=== PATIENT | male | born 1970 | race Two or more races ===

== ENCOUNTER 2020-11-03 13:31 | Outpatient (REF) | payer MEDICAID, SELFPAY | END 2020-11-03 13:32 | disposition home or self-care (01) | LOC: HO.LAB 13:31 | PROVIDERS: Visit Provider Internal Medicine | DX: Z20.822 Contact with and (suspected) exposure to COVID-19 (principal) | CPT/HCPCS: 36415; C9803; U0003; U0005 ==

== ENCOUNTER 2021-05-10 11:04 | Outpatient (REF) | payer MEDICAID, SELFPAY | END 2021-05-10 11:05 | disposition home or self-care (01) | LOC: HO.LAB 11:04 | PROVIDERS: PCP Nurse Practitioner Primary Care; Visit Provider Internal Medicine | DX: Z20.822 Contact with and (suspected) exposure to COVID-19 (principal) | CPT/HCPCS: C9803; U0003; U0005 ==

== ENCOUNTER 2022-06-22 14:44 | Outpatient (REF) | payer MEDICAID, SELFPAY ==
--- NOTE | ~2022-06-22 | US_ITS ---
EXAMINATION: US RETROPERITONEAL LIMITED (RENAL ONLY) CLINICAL INFORMATION: Left flank pain, history of nephrolithiasis. COMPARISON: Ultrasound abdomen complete 11/07/2017. MR lumbar spine without contrast 08/02/2018. TECHNIQUE: Real-time imaging of the kidneys. FINDINGS: RIGHT KIDNEY: 12.7 x 6.1 x 7.3 cm (SAG x AP x TRV). The kidney is normal in size, contour, and echogenicity. Renal cortical thickness is normal. No calculi or focal parenchymal lesions. No hydronephrosis. LEFT KIDNEY: 11.3 x 4.6 x 5.1 cm (SAG x AP x TRV). The kidney is normal in size and contour. There is cortical thinning, increased echogenicity. Renal pyramids appear prominent. There is mild left hydronephrosis. No calculi or focal parenchymal lesions. US/US renal BI IMPRESSION: Normal right kidney. Left renal cortical thinning and increased echogenicity. Mild left hydronephrosis. Appearance is similar to 2018 exam.
== END 2022-06-22 14:45 | disposition home or self-care (01) ==
LOC: HO.HMGCX 14:44
PROVIDERS: PCP Nurse Practitioner Primary Care; Visit Provider Nurse Practitioner Primary Care
DX: R10.9 Unspecified abdominal pain (principal)
CPT/HCPCS: 76775

== ENCOUNTER 2022-08-12 13:20 | Outpatient (REF) | payer MEDICAID, SELFPAY ==
--- NOTE | ~2022-08-12 | XR_ITS ---
EXAMINATION: XR KNEE, RIGHT CLINICAL INFORMATION: Knee pain. COMPARISON: Right tibia and fibula 05/24/2017. TECHNIQUE: Four views of the right knee. FINDINGS: Bones and soft tissues are normal. No fracture or joint effusion. Alignment is anatomic. Joint spaces are well maintained. No abnormal soft tissue calcification. XR/XR knee RT 4V IMPRESSION: Normal right knee.
--- NOTE | ~2022-08-12 | XR_ITS ---
EXAMINATION: XR CHEST CLINICAL INFORMATION: Cough. COMPARISON: 11/15/2017 TECHNIQUE: 2 views of the chest were obtained. FINDINGS: No significant abnormality is noted involving the heart, lungs, mediastinum, bony thorax or soft tissues. XR/XR chest 2V IMPRESSION: Unremarkable examination.
== END 2022-08-12 13:21 | disposition home or self-care (01) ==
LOC: HO.XRAY 13:20
PROVIDERS: PCP Nurse Practitioner Primary Care; Visit Provider Nurse Practitioner Primary Care
DX: R05.9 Cough, unspecified (principal); M25.561 Pain in right knee
CPT/HCPCS: 71046; 73564

== ENCOUNTER 2023-01-27 12:40 | Emergency (ER) | payer MEDICAID, SELFPAY ==
--- NOTE | ~2023-01-27 | XR_ITS ---
EXAMINATION: XR CHEST CLINICAL INFORMATION: Pain COMPARISON: X-ray 08/12/2022 TECHNIQUE: 2 views of the chest were obtained. FINDINGS: Rotated positioning. Cardiac and mediastinal silhouette is stable from previous. Mild central vascular prominence, unchanged. No evidence of pulmonary edema. No evidence of pleural effusion. No significant pneumothorax is seen. Mild thoracic spine degeneration. Surgical clip in the upper abdomen. XR/XR chest 2V IMPRESSION: No evidence of acute pulmonary process.
--- NOTE | ~2023-01-27 | US_ITS ---
EXAMINATION: US ABDOMEN LIMITED CLINICAL INFORMATION: Right upper quadrant pain.. COMPARISON: Ultrasound kidneys 06/22/2022. The ultrasound abdomen 11/07/2017 TECHNIQUE: Real-time imaging of the right upper quadrant abdominal viscera. FINDINGS: PANCREAS: The head and the body the pancreas is homogeneous in echotexture. The tail is obscured by overlying gas. LIVER: Normal. The liver is normal in size. The liver contour is normal. Parenchymal echogenicity is slightly increased. No focal hepatic lesion. There is no intrahepatic biliary duct dilatation seen. GALLBLADDER: Limited views available.. The gallbladder is physiologically distended without evidence of stones, sludge, polyps, wall thickening or pericholecystic fluid. COMMON BILE DUCT: Normal in caliber measuring 0.2 cm in diameter. RIGHT KIDNEY: Normal. No hydronephrosis. No renal calculi or focal parenchymal lesions. The kidney measures 12.6 cm in maximum dimension. FREE FLUID: None. US/US abdomen limited IMPRESSION: 1. Slightly echogenic liver without focal lesion. 2. Visualized pancreas, gallbladder, CBD and right kidney is unremarkable.
--- NOTE | ~2023-01-27 | CT_ITS ---
EXAMINATION: CT ABDOMEN AND PELVIS WITHOUT CONTRAST CLINICAL INFORMATION: Right flank pain COMPARISON: None available. TECHNIQUE: Multidetector volumetric imaging was performed from the superior aspect of the liver through the pubic symphysis. Sagittal and coronal reformatted images were obtained on the technologist's workstation. This CT examination was performed using dose optimization techniques as appropriate, variously including the following: *Automated exposure control *Adjustment of mA and/or kV according to patient size (this includes techniques or standardized protocols for targeted exams where dose is matched to indication/reason for exam; i.e. extremities or head) *Use of iterative reconstruction technique DLP: 732 mGy-cm FINDINGS: LUNG BASES: The visualized lung bases are unremarkable. LIVER, GALLBLADDER, AND BILIARY TREE: The liver is normal in size, shape, and attenuation. No focal hepatic lesion or biliary ductal dilatation is present. The gallbladder is unremarkable with no evidence of radiopaque gallstones, gallbladder wall thickening, or obvious pericholecystic inflammatory changes. PANCREAS: Unremarkable. SPLEEN: Unremarkable. ADRENAL GLANDS: Unremarkable. KIDNEYS AND URETERS: The kidneys are normal in shape and attenuation. No hydronephrosis, hydroureter, or calculi seen. No perinephric stranding. A punctate calcification near the renal pelvis is most likely vascular. The left kidney is relatively small. There is a small metallic clip adjacent to the left renal vein. This may be related to a metallic clip in the right lower quadrant. BLADDER: Unremarkable. GASTROINTESTINAL TRACT: The small and large bowel are unremarkable. The appendix has likely been removed. Small bowel loops abut the low anterior abdominal wall hernia mesh and may be adherent. ABDOMINAL WALL: No recurrent hernia or associated fluid collection. No obstruction. LYMPH NODES: Normal. VASCULAR: Diffuse vascular calcifications. PELVIC VISCERA: Prostate calcifications. OSSEOUS STRUCTURES: Unremarkable. CT/CT abdomen pelvis wo IV con IMPRESSION: 1. No focal inflammatory process or obstruction. 2. No hydronephrosis or nephrolithiasis. Fleischner guidelines were followed.
--- NOTE | 2023-01-27 12:44 | ECG_ITS ---
Test Reason : cp Blood Pressure : / mmHG Vent. Rate : 077 BPM Atrial Rate : 077 BPM P-R Int : 160 ms QRS Dur : 134 ms QT Int : 418 ms P-R-T Axes : 022 -68 112 degrees QTc Int : 473 ms Normal sinus rhythm Right bundle branch block Left anterior fascicular block Bifascicular block T wave abnormality, consider lateral ischemia Abnormal ECG When compared with ECG of 15-NOV-2017 15:41, (RBBB and left anterior fascicular block) is now Present Referred By: Lorena Martinez Electronically Signed By:Rey Pacheco
[2023-01-27 12:57] VITALS: BP 180/99; PULSE 78; RESP 20; TEMP 37; O2SAT 98; BMI 33.3
--- NOTE | 2023-01-27 12:57 | ED.GENADULT ---
HPI - General Adult General Chief complaint: General Medical <CANDELARIO Arredondo - Last Filed: 01/27/23 13:02> Stated complaint: Chest pain/ arm pain. abdominal region swollen <CANDELARIO Arredondo - Last Filed: 01/27/23 13:02> Time Seen by Provider: 01/27/23 16:44 <CANDELARIO Arredondo - Last Filed: 01/27/23 13:02> Source: patient, RN notes reviewed and old records reviewed <Brett Ruiz - Last Filed: 01/27/23 19:51> Mode of arrival: ambulatory <Brett Ruiz - Last Filed: 01/27/23 19:51> Limitations: no limitations <Brett Ruiz - Last Filed: 01/27/23 19:51> History of Present Illness HPI narrative: 52-year-old male past medical history significant for obesity, hypertension, hyperlipidemia presents for evaluation of multiple complaints. He reports left-sided chest pain that radiates to his left arm has been present for at least last week He complains of epigastric abdominal pain that radiates around to his right upper abdomen and right flank for the last month He denies any associated symptoms including nausea vomiting or diarrhea. He denies any shortness of breath The patient does endorse a dry cough but states ?I always have a cough because I smoke. ? He rates his pain as 10/10. The patient feels his abdomen is ?swollen. ? He has previous surgical history including appendectomy, hernia repair <Brett Ruiz - Last Filed: 01/27/23 19:51> Related Data Home medications: Previous Rx's Medication Instructions Recorded acetaminophen 500 mg tablet 500 mg PO Q6H PRN pain #20 tabs 01/27/23 <CANDELARIO Arredondo - Last Filed: 01/27/23 13:02> Allergies/adverse reactions: Allergies Allergy/AdvReac Type Severity Reaction Status Date / Time Penicillins [PENICILLINS] Allergy Unknown SWELLING Unverified 06/18/20 18:50 Penicillins Allergy Unknown Uncoded 06/27/19 00:00 <CANDELARIO Arredondo Last Filed: 01/27/23 13:02> Review of Systems Constitutional: Constitutional: Reports as per HPI, Denies chills, Denies fatigue, Denies fever(s) and Denies headache(s) <Brett Ruiz Last Filed: 01/27/23 19:51> ENT: Denies headache(s) <Brett Ruiz Last Filed: 01/27/23 19:51> Cardiovascular: Cardiovascular: Reports chest pain and Denies dyspnea <Brett Yeungy - Last Filed: 01/27/23 19:51> Respiratory: Respiratory: Denies cough and Denies dyspnea <Brett Yeungy - Last Filed: 01/27/23 19:51> Gastrointestinal: Gastrointestinal: Reports abdominal pain, Denies constipation, Denies nausea and Denies vomiting <Brett Yeung Last Filed: 01/27/23 19:51> Genitourinary: Genitourinary: Denies difficulty urinating and Denies dysuria <Brett Ruiz Last Filed: 01/27/23 19:51> Neurologic: Denies headache(s) and Denies focal weakness <Brett Ruiz Last Filed: 01/27/23 19:51> Endocrine: Endocrine: Denies fatigue <Brett Ruiz Last Filed: 01/27/23 19:51> PMFSH Social History Social History: Social History Advance Directives: No Advance Directives Information Provided: Yes <CANDELARIO Arredondo - Last Filed: 01/27/23 13:02> Physical Exam ED Vital Signs: Vital Signs - 24 hr 01/27/23 12:57 Temperature 98.6 F Pulse Rate 78 Respiratory Rate 20 Blood Pressure 180/99 H Pulse Oximetry 98 Oxygen Delivery Method Room Air BMI result Body Mass Index 33.3 <CANDELARIO Arredondo - Last Filed: 01/27/23 13:02> Vital Signs - 24 hr 01/27/23 12:57 Temperature 98.6 F Pulse Rate 78 Respiratory Rate 20 Blood Pressure 180/99 H Pulse Oximetry 98 Oxygen Delivery Method Room Air BMI result Body Mass Index 33.3 <Brett Ruiz Last Filed: 01/27/23 19:51> Const General: healthy appearing, comfortable, no acute distress, alert and awake <Brett Ruiz Last Filed: 01/27/23 19:51> Nutritional Appearance: well nourished < Last Filed: 01/27/23 19:51> Orientation/consciousness: patient oriented x3 < Last Filed: 01/27/23 19:51> HENMT Head: Yes normocephalic and Yes atraumatic < Last Filed: 01/27/23 19:51> Throat: Yes posterior oropharynx normal < Last Filed: 01/27/23 19:51> Eyes Eyelids: Yes eyelids normal < Last Filed: 01/27/23 19:51> Conjunctivae: conjunctivae normal < Last Filed: 01/27/23 19:51> Sclerae: sclerae normal < Last Filed: 01/27/23 19:51> Corneas: corneas normal < Last Filed: 01/27/23 19:51> Pupils: Equal, round and reactive pupils present < Last Filed: 01/27/23 19:51> EOM: EOMs intact bilaterally < Last Filed: 01/27/23 19:51> Neck Neck: Yes full ROM < Last Filed: 01/27/23 19:51> Chest Other: Patient does have left-sided chest tenderness on exam without crepitus < Last Filed: 01/27/23 19:51> Chest palpation & inspection: normal inspection of the chest < Last Filed: 01/27/23 19:51> Resp Effort & Inspection: normal respiratory effort, able to speak in complete sentences, no audible wheezes and not labored < Last Filed: 01/27/23 19:51> Auscultation: clear to auscultation bilaterally < Last Filed: 01/27/23 19:51> Cardio Rate: regular rate < Last Filed: 01/27/23 19:51> Rhythm: regular rhythm < Last Filed: 01/27/23 19:51> GI Other: Surgical scars in the right lower and lower mid abdomen. Soft, obese abdomen. Patient is tender to palpation in the epigastric area and right upper quadrant. <Brett Ruiz - Last Filed: 01/27/23 19:51> Palpation (GI): Soft to palpation, Tenderness to palpation present (GI) and Guarding due to palpation present (GI) in the RUQ <Brett ManjinderGabyChi - Last Filed: 01/27/23 19:51> Auscultation: normoactive bowel sounds <Brett [place]aby[place] - Last Filed: 01/27/23 19:51> Skin General skin exam: no rashes or lesions noted and elasticity normal <Brett OAlly - Last Filed: 01/27/23 19:51> Neuro General: patient oriented x3 <Brett Manjinder[place]aby[place] - Last Filed: 01/27/23 19:51> Cranial nerves: Yes CN's II-XII intact bilaterally, Yes Equal, round and reactive pupils present and Yes Bilaterally intact EOM present <Brett DunbarAlly - Last Filed: 01/27/23 19:51> Cognition (Neuro): normal cognition <Brett HernandezChi - Last Filed: 01/27/23 19:51> Extrem Other: Moving all extremities well without any obvious deformities <Brett ManjinderGabyChi - Last Filed: 01/27/23 19:51> Course Course Course Narrative: RME: 52yo M w/no sig PMHx c/o L chest x 1 mos and RUQ abdominal pain radiating to R flank/back x 2 weeks. Denies fever, N/V/D Abdomen soft with epigastric/RUQ tenderness. EKG, labs, UA, abdomen ultrasound ordered Full HPI, ROS and PE to be performed by primary ED provider. <CANDELARIO Arredondo - Last Filed: 01/27/23 13:02> Reevaluation(s) Reevaluation #1: Patient's CT abdomen, chest x-ray and repeat troponin all without acute findings. The patient's pain is better controlled now. He is stable for discharge at this time. His blood pressure improved without intervention. This was discussed with the patient he will follow-up with his primary doctor <Brett Rizzo Last Filed: 01/27/23 19:51> Time: 19:48 <Brett Ruiz - Last Filed: 01/27/23 19:51> Medications Administered Discontinued Medications Generic Name Dose Route Start Last Admin Trade Name Freq PRN Reason Stop Dose Admin Morphine Sulfate 4 mg 01/27/23 17:35 01/27/23 17:52 Morphine Sulfate 4 Mg/Ml Cartridge IM 01/27/23 17:36 4 mg ONCE ONE Administration Protocol <CANDELARIO Arredondo - Last Filed: 01/27/23 13:02> Medications Administered Discontinued Medications Generic Name Dose Route Start Last Admin Trade Name Freq PRN Reason Stop Dose Admin Morphine Sulfate 4 mg 01/27/23 17:35 01/27/23 17:52 Morphine Sulfate 4 Mg/Ml Cartridge IM 01/27/23 17:36 4 mg ONCE ONE Administration Protocol <Brett Ruiz - Last Filed: 01/27/23 19:51> Medical Decision Making Medical Decision Making [facility] Narrative: Patient is a somewhat poor historian he complains of chest pain has been going on for 1 week. Less likely to be ACS. Nose, to abdominal pain x1 month. Denies any GI or symptoms. His labs are significant for A CO2 of 31 which may related to sleep apnea, anion gap of 10, BUN of 21 but his creatinine was within normal limits at 1.21. Patient sugar is 250 but no evidence of DKA. Patient's EKG does show sinus rhythm with a rate of 77 beats per minute. There is a new right bundle branch block and left fascicular block when compared to EKG from November of 5 years ago. Unclear exactly when this interval change occurred. Will repeat the patient's troponin that was 16 on initial lab draw. Given the patient's significant tenderness no right upper quadrant despite his negative ultrasound for biliary disease with a CT scan the abdomen pelvis without contrast. <Brett Ruiz - Last Filed: 01/27/23 19:51> Differential Diagnosis Abdominal pain Flank pain Constipation Cholelithiasis Acute cholecystitis Chest pain ACS Obesity <Brett Ruiz - Last Filed: 01/27/23 19:51> Lab Data [facility] Lab Attestation statement: I reviewed the patient's lab results. <Brett Ruiz - Last Filed: 01/27/23 19:51> Result Diagrams: 01/27/23 13:13 01/27/23 13:13 <CANDELARIO Arredondo - Last Filed: 01/27/23 13:02> Labs: Lab Results 01/27/23 01/27/23 01/27/23 Range/Units 13:13 13:13 13:13 WBC 7.6 (4.8-10.8) X10*3/uL RBC 5.79 (4.60-5.80) X10*6/uL Hgb 17.2 (14.0-18.0) g/dl Hct 50.4 (42.0-52.0) % MCV 87.0 (80.0-98.0) fL MCH 29.7 (27.0-33.0) pg MCHC 34.1 (31.0-36.0) g/dl RDW 12.2 (11.0-16.0) % Plt Count 126 L (160-400) X10*3/uL MPV 11.6 (9.4-12.4) fL Immature Gran % (Auto) 0.3 (0.0-0.4) % Neut % (Auto) 63.7 (45-73) % Lymph % (Auto) 22.7 (20-40) % [place] % (Auto) 10.3 (2-11) % Eos % (Auto) 2.6 (0-4) % Baso % (Auto) 0.4 (0-2) % Lymph # (Auto) 1.7 (1.2-4.9) X10*3/uL [place] # (Auto) 0.8 (0.1-1.2) X10*3/uL Eos # (Auto) 0.2 (0.0-0.4) X10*3/uL Baso # (Auto) 0.0 (0.0-0.2) X10*3/uL Abs Immat Gran (auto) 0.02 (0.00-0.03) X10*3/uL Absolute Neuts (auto) 4.8 (2.0-8.3) x10*3/uL Absolute Nucleated RBC 0.000 (0.0-0.012) X10*3/uL Nucleated RBC % (auto) 0.0 (0.0-0.2) /100WBC Sodium 140 (135-145) mmol/L Potassium 3.9 (3.3-5.1) mmol/L Chloride 103 (96-108) mmol/L Carbon Dioxide 31 H (22-29) mmol/L Anion Gap 10 L (12-20) BUN 21 H (9-16) mg/dL Creatinine 1.21 (0.5-1.4) mg/dL Estim Creat Clear Calc 81.6 Estimated GFR > 60 Random Glucose 250 H (60-115) mg/dL Calcium 9.4 (8.4-10.2) mg/dL Magnesium 1.7 (1.6-2.6) mg/dL Total Bilirubin 1.0 (0.0-1.0) mg/dL Direct Bilirubin 0.3 (0.0-0.5) mg/dL AST 11 (5-37) U/L ALT 12 (0-40) U/L Alkaline Phosphatase 115 (39-117) U/L Troponin I High Sens 16.8 (<3.5-35.0) ng/L Total Protein 6.5 (6.5-8.0) g/dL Albumin 4.0 (3.5-5.0) g/dL Lipase 39 (8-78) U/L // Range/Units 18:07 WBC (4.8-10.8) X10*3/uL RBC (4.60-5.80) X10*6/uL Hgb (14.0-18.0) g/dl Hct (42.0-52.0) % MCV (80.0-98.0) fL MCH (27.0-33.0) pg MCHC (31.0-36.0) g/dl RDW (11.0-16.0) % Plt Count (160-400) X10*3/uL MPV (9.4-12.4) fL Immature Gran % (Auto) (0.0-0.4) % Neut % (Auto) (45-73) % Lymph % (Auto) (20-40) % [place] % (Auto) (2-11) % Eos % (Auto) (0-4) % Baso % (Auto) (0-2) % Lymph # (Auto) (1.2-4.9) X10*3/uL [place] # (Auto) (0.1-1.2) X10*3/uL Eos # (Auto) (0.0-0.4) X10*3/uL Baso # (Auto) (0.0-0.2) X10*3/uL Abs Immat Gran (auto) (0.00-0.03) X10*3/uL Absolute Neuts (auto) (2.0-8.3) x10*3/uL Absolute Nucleated RBC (0.0-0.012) X10*3/uL Nucleated RBC % (auto) (0.0-0.2) /100WBC Sodium (135-145) mmol/L Potassium (3.3-5.1) mmol/L Chloride (96-108) mmol/L Carbon Dioxide (22-29) mmol/L Anion Gap (12-20) BUN (9-16) mg/dL Creatinine (0.5-1.4) mg/dL Estim Creat Clear Calc Estimated GFR Random Glucose (60-115) mg/dL Calcium (8.4-10.2) mg/dL Magnesium (1.6-2.6) mg/dL Total Bilirubin (0.0-1.0) mg/dL Direct Bilirubin (0.0-0.5) mg/dL AST (5-37) U/L ALT (0-40) U/L Alkaline Phosphatase (39-117) U/L Troponin I High Sens 21.2 (<3.5-35.0) ng/L Total Protein (6.5-8.0) g/dL Albumin (3.5-5.0) g/dL Lipase (8-78) U/L <CANDELARIO Arredondo - Last Filed: 01/27/23 13:02> Lab Results 01/27/23 01/27/23 01/27/23 Range/Units 13:13 13:13 13:13 WBC 7.6 (4.8-10.8) X10*3/uL RBC 5.79 (4.60-5.80) X10*6/uL Hgb 17.2 (14.0-18.0) g/dl Hct 50.4 (42.0-52.0) % MCV 87.0 (80.0-98.0) fL MCH 29.7 (27.0-33.0) pg MCHC 34.1 (31.0-36.0) g/dl RDW 12.2 (11.0-16.0) % Plt Count 126 L (160-400) X10*3/uL MPV 11.6 (9.4-12.4) fL Immature Gran % (Auto) 0.3 (0.0-0.4) % Neut % (Auto) 63.7 (45-73) % Lymph % (Auto) 22.7 (20-40) % [place] % (Auto) 10.3 (2-11) % Eos % (Auto) 2.6 (0-4) % Baso % (Auto) 0.4 (0-2) % Lymph # (Auto) 1.7 (1.2-4.9) X10*3/uL [place] # (Auto) 0.8 (0.1-1.2) X10*3/uL Eos # (Auto) 0.2 (0.0-0.4) X10*3/uL Baso # (Auto) 0.0 (0.0-0.2) X10*3/uL Abs Immat Gran (auto) 0.02 (0.00-0.03) X10*3/uL Absolute Neuts (auto) 4.8 (2.0-8.3) x10*3/uL Absolute Nucleated RBC 0.000 (0.0-0.012) X10*3/uL Nucleated RBC % (auto) 0.0 (0.0-0.2) /100WBC Sodium 140 (135-145) mmol/L Potassium 3.9 (3.3-5.1) mmol/L Chloride 103 (96-108) mmol/L Carbon Dioxide 31 H (22-29) mmol/L Anion Gap 10 L (12-20) BUN 21 H (9-16) mg/dL Creatinine 1.21 (0.5-1.4) mg/dL Estim Creat Clear Calc 81.6 Estimated GFR > 60 Random Glucose 250 H (60-115) mg/dL Calcium 9.4 (8.4-10.2) mg/dL Magnesium 1.7 (1.6-2.6) mg/dL Total Bilirubin 1.0 (0.0-1.0) mg/dL Direct Bilirubin 0.3 (0.0-0.5) mg/dL AST 11 (5-37) U/L ALT 12 (0-40) U/L Alkaline Phosphatase 115 (39-117) U/L Troponin I High Sens 16.8 (<3.5-35.0) ng/L Total Protein 6.5 (6.5-8.0) g/dL Albumin 4.0 (3.5-5.0) g/dL Lipase 39 (8-78) U/L 01/27/23 Range/Units 18:07 WBC (4.8-10.8) X10*3/uL RBC (4.60-5.80) X10*6/uL Hgb (14.0-18.0) g/dl Hct (42.0-52.0) % MCV (80.0-98.0) fL MCH (27.0-33.0) pg MCHC (31.0-36.0) g/dl RDW (11.0-16.0) % Plt Count (160-400) X10*3/uL MPV (9.4-12.4) fL Immature Gran % (Auto) (0.0-0.4) % Neut % (Auto) (45-73) % Lymph % (Auto) (20-40) % [place] % (Auto) (2-11) % Eos % (Auto) (0-4) % Baso % (Auto) (0-2) % Lymph # (Auto) (1.2-4.9) X10*3/uL [place] # (Auto) (0.1-1.2) X10*3/uL Eos # (Auto) (0.0-0.4) X10*3/uL Baso # (Auto) (0.0-0.2) X10*3/uL Abs Immat Gran (auto) (0.00-0.03) X10*3/uL Absolute Neuts (auto) (2.0-8.3) x10*3/uL Absolute Nucleated RBC (0.0-0.012) X10*3/uL Nucleated RBC % (auto) (0.0-0.2) /100WBC Sodium (135-145) mmol/L Potassium (3.3-5.1) mmol/L Chloride (96-108) mmol/L Carbon Dioxide (22-29) mmol/L Anion Gap (12-20) BUN (9-16) mg/dL Creatinine (0.5-1.4) mg/dL Estim Creat Clear Calc Estimated GFR Random Glucose (60-115) mg/dL Calcium (8.4-10.2) mg/dL Magnesium (1.6-2.6) mg/dL Total Bilirubin (0.0-1.0) mg/dL Direct Bilirubin (0.0-0.5) mg/dL AST (5-37) U/L ALT (0-40) U/L Alkaline Phosphatase (39-117) U/L Troponin I High Sens 21.2 (<3.5-35.0) ng/L Total Protein (6.5-8.0) g/dL Albumin (3.5-5.0) g/dL Lipase (8-78) U/L <Brett Ruiz - Last Filed: 01/27/23 19:51> Discharge Plan Discharge Clinical Impression: Chest pain <CANDELARIO Arredondo - Last Filed: 01/27/23 13:02> Patient Disposition: Home, Self-Care <CANDELARIO Arredondo - Last Filed: 01/27/23 13:02> Instructions: Chest Pain (ED) <CANDELARIO Arredondo - Last Filed: 01/27/23 13:02> Additional Instructions: All your test in the ER today were reassuring. This includes your blood work, chest x-ray, EKG, CT scan of the abdomen pelvis as well as the ultrasound of your gallbladder. Your pain is most likely musculoskeletal in origin Your blood pressure was elevated today but improved without any intervention Follow this up with your primary doctor <CANDELARIO Arredondo - Last Filed: 01/27/23 13:02> Prescriptions: New acetaminophen 500 mg tablet 500 mg PO Q6H PRN (Reason: pain) Qty: 20 0RF <CANDELARIO Arredondo - Last Filed: 01/27/23 13:02>
[2023-01-27 13:16] LABS: MANUAL DIFF FLAG NO
[2023-01-27 13:22] LABS: Basophils Percent Auto 0.4 % (0-2); Eosinophils Absolute Auto 0.2 X10*3/uL (0.0-0.4); Eosinophils Percent Auto 2.6 % (0-4); Hematocrit 50.4 % (42.0-52.0); Hemoglobin 17.2 g/dl (14.0-18.0); Imm Gran Abs Auto 0.02 X10*3/uL (0.00-0.03); Imm Gran Pct Auto 0.3 % (0.0-0.4); Lymphocytes Absolute Auto 1.7 X10*3/uL (1.2-4.9); Lymphocytes Percent Auto 22.7 % (20-40); Mean Corpuscular HGB Conc 34.1 g/dl (31.0-36.0); Mean Corpuscular Hemoglobin 29.7 pg (27.0-33.0); Mean Platelet Volume 11.6 fL (9.4-12.4); Monocytes Absolute Auto 0.8 X10*3/uL (0.1-1.2); Monocytes Percent Auto 10.3 % (2-11); Neutrophils Absolute Auto 4.8 x10*3/uL (2.0-8.3); Neutrophils Percent Auto 63.7 % (45-73); Platelet Count 126 X10*3/uL (160-400); Red Blood Count 5.79 X10*6/uL (4.60-5.80); Red Cell Distribution Width 12.2 % (11.0-16.0); White Blood Count 7.6 X10*3/uL (4.8-10.8)
[2023-01-27 13:37] LABS: Alanine Aminotransferase 12 U/L (0-40); Alkaline Phosphatase 115 U/L (39-117); Anion Gap 10 (12-20); Aspartate Amino Transferase 11 U/L (5-37); Bilirubin Direct 0.3 mg/dL (0.0-0.5); Blood Urea Nitrogen 21 mg/dL (9-16); Calcium 9.4 mg/dL (8.4-10.2); Carbon Dioxide 31 mmol/L (22-29); Chloride 103 mmol/L (96-108); Creatinine Clr Calc Pharmacy 81.6; Estimated Glomerular Filt Rate > 60; Glucose Random 250 mg/dL (60-115); Lipase 39 U/L (8-78); Magnesium 1.7 mg/dL (1.6-2.6); Potassium 3.9 mmol/L (3.3-5.1); Sodium 140 mmol/L (135-145); Total Protein 6.5 g/dL (6.5-8.0)
[2023-01-27 13:44] LABS: Troponin-I High Sensitivity 16.8 ng/L (<3.5-35.0)
[2023-01-27] MEDS: Morphine Sulfate 4 MG/ML CARTRIDGE IM (17:52)
[2023-01-27 18:44] LABS: Troponin-I High Sensitivity 21.2 ng/L (<3.5-35.0)
--- NOTE | 2023-01-27 19:30 | PC.NURSE ---
report received from jj Rodriguez Pt resting comfortably on stretcher at this time, denies pain, offers no complaints at this time. Pt verbalizes to this RN that he understands he is going to [facility] at some point and is agreeable with this plan.
[2023-01-27 19:48] VITALS: BP 143/81; PULSE 67; RESP 16; TEMP 36.7; O2SAT 98
[2023-01-27 20:31] VITALS: BP 137/69; PULSE 67; RESP 16; TEMP 36.9; O2SAT 100
== END 2023-01-27 20:30 | disposition home or self-care (01) ==
PROVIDERS: Physician Assistant; Emergency Provider Emergency Medicine; PCP Nurse Practitioner Primary Care
DX: R07.9 Chest pain, unspecified (principal); R10.9 Unspecified abdominal pain; I10 Essential (primary) hypertension; E78.5 Hyperlipidemia, unspecified; R05.3 Chronic cough
CPT/HCPCS: 36415; 71046; 74176; 76705; 80048; 80076; 83690; 83735; 84484; 85025; 93005; 96372; 99284; J2270

== ENCOUNTER 2023-01-31 09:50 | Outpatient (REF) | payer MEDICAID, SELFPAY ==
--- NOTE | ~2023-01-31 | XR_ITS ---
EXAMINATION: XR ABDOMEN KUB CLINICAL INDICATION: Right upper quadrant pain COMPARISON: None available. TECHNIQUE: AP view of the abdomen. FINDINGS: The bowel gas pattern is nonspecific with scattered stool and gas. No distention. No organomegaly. No radiopaque calculi seen. There is a large abdominal wall mesh from previous hernia repair. No gross bony abnormality. XR/XR abdomen 1V IMPRESSION: Mild constipation. No acute process seen. Large anterior abdominal wall mesh from previous hernia repair.
== END 2023-01-31 09:51 | disposition home or self-care (01) ==
LOC: HO.HHCX 09:50
PROVIDERS: PCP Nurse Practitioner Primary Care
DX: R10.11 Right upper quadrant pain (principal)
CPT/HCPCS: 74018

== ENCOUNTER 2023-04-13 12:08 | Outpatient (REF) | payer MEDICAID, SELFPAY ==
--- NOTE | ~2023-04-13 | XR_ITS ---
EXAMINATION: XR RIBS, RIGHT CLINICAL INFORMATION: Rib pain on right side for 3 months, no injury. COMPARISON: Chest radiograph 01/27/2023. TECHNIQUE: Single view chest and 3 views of the right ribs were obtained. FINDINGS: Lungs are clear. No consolidation, pneumothorax, or pleural effusion. The cardiomediastinal silhouette and pulmonary vasculature are normal. The aorta is mildly ectatic. Osseous structures are unremarkable. Ribs are intact. No fractures are identified. XR/XR ribs RT min 3V w CXR1V IMPRESSION: Unremarkable examination.
== END 2023-04-13 12:09 | disposition home or self-care (01) ==
LOC: HO.HHCX 12:08
PROVIDERS: Visit Provider Nurse Practitioner Primary Care
DX: R07.81 Pleurodynia (principal)
CPT/HCPCS: 71101

== ENCOUNTER 2023-07-12 16:29 | Outpatient (REF) | payer MEDICAID, SELFPAY ==
[2023-07-12 17:29] LABS: MANUAL DIFF FLAG NO
[2023-07-12 17:36] LABS: Basophils Absolute Auto 0.1 X10*3/uL (0.0-0.2); Basophils Percent Auto 0.5 % (0-2); Eosinophils Absolute Auto 0.2 X10*3/uL (0.0-0.4); Eosinophils Percent Auto 2.1 % (0-4); Hematocrit 49.2 % (42.0-52.0); Hemoglobin 16.4 g/dl (14.0-18.0); Imm Gran Abs Auto 0.02 X10*3/uL (0.00-0.03); Imm Gran Pct Auto 0.2 % (0.0-0.4); Lymphocytes Absolute Auto 1.9 X10*3/uL (1.2-4.9); Lymphocytes Percent Auto 20.6 % (20-40); Mean Corpuscular HGB Conc 33.3 g/dl (31.0-36.0); Mean Corpuscular Hemoglobin 29.1 pg (27.0-33.0); Mean Corpuscular Volume 87.2 fL (80.0-98.0); Mean Platelet Volume 11.8 fL (9.4-12.4); Monocytes Absolute Auto 0.9 X10*3/uL (0.1-1.2); Monocytes Percent Auto 10.1 % (2-11); Neutrophils Absolute Auto 6.2 x10*3/uL (2.0-8.3); Neutrophils Percent Auto 66.5 % (45-73); Platelet Count 202 X10*3/uL (160-400); Red Blood Count 5.64 X10*6/uL (4.60-5.80); Red Cell Distribution Width 12.1 % (11.0-16.0); White Blood Count 9.3 X10*3/uL (4.8-10.8)
[2023-07-12 17:53] LABS: Rheumatoid Factor < 13.0 IU/mL (<15.0)
[2023-07-12 18:00] LABS: Alanine Aminotransferase 7 U/L (0-40); Albumin Level 4.2 g/dL (3.5-5.0); Alkaline Phosphatase 108 U/L (39-117); Anion Gap 16 (12-20); Aspartate Amino Transferase 12 U/L (5-37); Bilirubin Total 0.9 mg/dL (0.0-1.0); Blood Urea Nitrogen 15 mg/dL (9-16); C Reactive Protein 0.64 mg/dL (< or = 0.50); Calcium 10.4 mg/dL (8.4-10.2); Carbon Dioxide 28 mmol/L (22-29); Chloride 101 mmol/L (96-108); Estimated Glomerular Filt Rate > 60; Glucose Random 182 mg/dL (60-115); Sodium 141 mmol/L (135-145); Total Protein 7.5 g/dL (6.5-8.0)
[2023-07-12 18:17] LABS: TSH reflex Free T4 1.21 uIU/mL (0.32-4.0)
[2023-07-12 18:19] LABS: Erythrocyte Sedimentation Rate 8 MM/HR (0-15)
[2023-07-15 16:28] LABS: CK-BB None Detected (None Detected); CK-MB 0 % (<5); CK-MM 100 % (95-100); Creatine Kinase,Total,Serum 59 U/L (44-196)
[2023-07-16 09:38] LABS: Anti Nuclear Antibody Screen NEGATIVE (NEGATIVE)
== END 2023-07-12 16:30 | disposition home or self-care (01) ==
LOC: HO.HHCL 16:29
PROVIDERS: Visit Provider Nurse Practitioner Primary Care
DX: R52 Pain, unspecified (principal)
CPT/HCPCS: 36415; 80053; 82552; 84443; 85025; 85652; 86038; 86140; 86431

== ENCOUNTER 2023-07-31 13:20 | Outpatient (AMB) | payer MEDICAID, SELFPAY ==
[2023-07-31 13:35] VITALS: BP 139/83; PULSE 87; O2SAT 98; BMI 31.7
--- NOTE | 2023-07-31 13:35 | MHC.OFFVIS ---
Intake Vital Signs 07/31/23 13:35 Height 5 ft 8 in Weight 208 lb 8 oz BMI 31.7 BP 139/83 Blood Pressure Location Lt brachial Position Sitting Pulse 87 Pulse Source Pulse Oximeter Pulse Oximetry (%) 98 Oxygen Delivery Method Room Air Intake Visit Reasons: whole body pain/confirmed Intake Note: Pt ref by PCP for all over body pain-started 10 mos ago as R side axial pain ext to chest and upper abd, down L arm, L leg, and tingling noted in R arm. Pt takes Jennifer-no relief and NSAIDS. Allergies Penicillins [PENICILLINS] Allergy (Unknown, Unverified 07/31/23 13:39) SWELLING Penicillins Allergy (Unknown, Uncoded 07/31/23 13:39) Unknown Medication List - Last Reconciled 07/31/23 by Mervat Linares RN acetaminophen 500 mg PO Q6H PRN albuterol sulfate 90 mcg/actuation (Ventolin HFA) 2 puffs inhalation Q4-6H PRN amlodipine 10 mg PO DAILY aripiprazole 10 mg PO QAM ascorbic acid (vitamin C) (Vitamin C) 1,000 mg PO DAILY aspirin 81 mg PO DAILY atorvastatin 80 mg PO DAILY blood sugar diagnostic (FreeStyle Lite Strips) As directed bupropion HCl 150 mg PO QAM calcium carbonate-vitamin D3 500 mg-10 mcg (400 unit) (Oyster Shell Calcium-Vitamin D3) 1 tab PO DAILY carvedilol 3.125 mg PO BID clotrimazole 1% appl topical BID cyclobenzaprine 5 mg PO TID PRN dulaglutide (Trulicity) mg subcut QWEEK empagliflozin (Jardiance) 10 mg PO QAM enalapril maleate 20 mg PO QAM famotidine 20 mg PO BID fluconazole mg PO gabapentin 300 mg PO TID gabapentin 200 mg PO BID glipizide 10 mg PO hydroxyzine HCl 25 mg PO BEDTIME ibuprofen 800 mg PO TID lancets (Easy Touch Twist Lancets) As directed lidocaine 5% 1 patch topical DAILY PRN meloxicam 15 mg PO DAILY PRN nicotine 1 patch topical DAILY nicotine transdermal nicotine (polacrilex) 2 mg PO Q2H PRN sildenafil (Viagra) 100 mg PO DAILY PRN sulfamethoxazole-trimethoprim 800-160 mg 1 tab PO BID tramadol 50 mg PO Q6H PRN trazodone 200 mg PO BEDTIME vitamin B complex (B Complex-Vitamin B12 tablet) 1 tab PO DAILY HPI HPI Comments History of Present Illness Details Nii is very pleasant 53 years old gentleman who presents in my office with complains on widespread all over the body. He reports pain in the bilateral arms bilateral scapula lower back bilateral lower extremities he reports that he cannot sleep normally cannot do activities of daily living cannot take care of himself cannot function normally he is on permanent disability he needs walker for ambulation however he reports that he does not have 1. He reports that movements aggravates his pain and some oral medications make his pain better. The pain is very severe throughout the day he reports his pain 8/10. In terms of tissue damage he reports his pain is pounding, stabbing, sharp, cramping, pulling, hot burning, stinging, hurting, aching, suffocating, fried full, tearing. He had images of his shoulders in the past why x-rays he had never had physical therapy he never had any injections. He is currently taking gabapentin 300 mg b.i.d. and unfortunately that does not help him. However he denies any side effects from gabapentin. He tried cyclobenzaprine as a muscle relaxant however he never tried tizanidine. he reports that he smokes 2 packs of the cigarettes per day since his 9 years old. He denies drinking alcohol he denies recreational drugs. He reports headaches hypertension history of stroke fatigue dizziness and fainting heart palpitation and kidney stones diabetes digestive problems in the arthritis. He denies any Past surgeries. [facility] Medical History (Updated 07/31/23 @ 14:19 by Russell Turner MD) Obesity (BMI 30-39.9) Left arm pain Major depression Decreased vision Anxiety Hypercholesterolemia Essential hypertension Type 2 diabetes mellitus with complication, without long-term current use of insulin Chronic midline low back pain without sciatica ESME (obstructive sleep apnea) Dizziness Review of Systems Const Denies excessive sweating Eyes Denies change in vision ENT Reports Normal hearing present Card Denies chest pain at rest, Denies chest pain with activity, Denies diaphoresis, Denies syncope, Denies rapid heart rate and Denies pedal edema Resp Denies chest congestion, Denies cough, Denies hemoptysis, Denies pain on inspiration and Denies pain with cough GI Denies abdominal pain, Denies belching, Denies melena and Denies bloating Denies urinary incontinence Musc Reports as per HPI Neuro Reports Normal hearing present, Denies Abnormal speech present, Denies confusion, Denies syncope, Denies seizure-like activity and Denies Sensory deficit (Neuro) Psych Denies confusion, Denies irritability and Denies anhedonia Endo Denies excessive sweating Physical Exam Vital Signs: Last Vital Signs Pulse 87 07/31/23 13:35 BP 139/83 07/31/23 13:35 Pulse Ox 98 07/31/23 13:35 Oxygen Delivery Method Room Air 07/31/23 13:35 BMI result Body Mass Index 31.7 Const General: No confusion Orientation/consciousness: No confusion Eyes General: appearance normal, both eyes and all related structures Pupils: Equal, round and reactive pupils present EOM: EOMs intact bilaterally Neck Neck: Yes full ROM Chest Chest palpation & inspection: normal inspection of the chest Resp Effort & Inspection: normal respiratory effort, able to speak in complete sentences, normal respiratory pattern, no audible wheezes and no cough Cardio Jugular venous distension: no JVD GI Inspection: Yes normal to inspection Neuro General: No confusion Cranial nerves: Yes Equal, round and reactive pupils present and Yes Normal hearing present Speech: No Abnormal speech present Gait exam (Neuro): Normal gait present Motor exam (neuro): 5/5 motor strength present throughout Sensory Exam: No Sensory deficit (Neuro) Extrem General: No pedal edema Psych Speech and movement: Normal speech and movement present Affect: normal affect Attitude: cooperative Thought process: Normal thought process present Thought content: Normal thought content present Insight: Good insight present (Psych) Judgement: Good judgement present (Psych) Assessment & Plan Assessment & Plan (1) Diabetic arthropathy: Code(s): E11.618 - Type 2 diabetes mellitus with other diabetic arthropathy (2) Smoking addiction: Code(s): F17.200 - Nicotine dependence, unspecified, uncomplicated (3) Chronic pain syndrome: Code(s): G89.4 - Chronic pain syndrome (4) Fibromyalgia: Code(s): M79.7 - Fibromyalgia Plan combination of heavy smoking, uncontrolled diabetes, osteoarthritis and diabetes arthritis probably result in his widespread pain. Fibromyalgia cannot be excluded either. He needs to stop smoking, start doing low impact aerobic exercises, he needs to do physical therapy. I will start him on gabapentin 600 mg t.i.d. and I will start him on tizanidine 4 mg t.i.d.. I recommend him to enroll himself to [facility] and do either low impact aerobic exercise in form of water aerobics would just perform swimming in the swimming pool at least 30 minutes today at least 6 days a week. He has difficulties with transportation he lives on 3rd floor and he is unable to climb up and down. I will issue the letter to housing authority to help him to change his apartment. Medications: New gabapentin 600 mg PO TID 90 tabs 8RF 30 days tizanidine 4 mg PO Q8H PRN 90 tabs 0RF muscle spasticity 3 days Patient Instructions: I here by testify that I spent 30 minutes in conversation with this patient as well as planning his care ordering his meds and organizing this note. Coding Level of Care Code New Pt Level 3 (12810) Diagnoses Diabetic arthropathy E11.618 Smoking addiction F17.200 Chronic pain syndrome G89.4 Fibromyalgia M79.7
== END 2023-07-31 14:15 | disposition home or self-care (01) ==
PROVIDERS: PCP Nurse Practitioner Primary Care; Visit Provider Anesthesiology
DX: G89.4 Chronic pain syndrome (principal); E11.618 Type 2 diabetes mellitus with other diabetic arthropathy; F17.200 Nicotine dependence, unspecified, uncomplicated; M79.7 Fibromyalgia
CPT/HCPCS: 99204

== ENCOUNTER → 2023-07-31 13:20 | Outpatient (BNVA) | payer MEDICAID, SELFPAY | PROVIDERS: PCP Nurse Practitioner Primary Care; Visit Provider Anesthesiology | DX: E11.618 Type 2 diabetes mellitus with other diabetic arthropathy (principal); M79.7 Fibromyalgia; G89.4 Chronic pain syndrome; F17.210 Nicotine dependence, cigarettes, uncomplicated | CPT/HCPCS: 99202 ==

== ENCOUNTER 2023-08-26 13:17 | Emergency (ER) | payer MEDICAID, SELFPAY ==
--- NOTE | ~2023-08-26 | XR_ITS ---
EXAMINATION: XR CHEST CLINICAL INFORMATION: Diffuse chest pain. COMPARISON: None available. TECHNIQUE: 2 views of the chest were obtained. FINDINGS: No significant abnormality is noted involving the heart, lungs, mediastinum, bony thorax or soft tissues. XR/XR chest 2V IMPRESSION: Unremarkable chest examination.
--- NOTE | 2023-08-26 13:27 | ECG_ITS ---
Test Reason : CHEST PAIN Blood Pressure : / mmHG Vent. Rate : 080 BPM Atrial Rate : 080 BPM P-R Int : 154 ms QRS Dur : 136 ms QT Int : 408 ms P-R-T Axes : 027 -65 092 degrees QTc Int : 470 ms Normal sinus rhythm Right bundle branch block Left anterior fascicular block Bifascicular block Abnormal ECG When compared with ECG of 27-JAN-2023 13:03, No significant change was found Referred By: Generic ED Physician Electronically Signed By:JAN THRASHER MD
[2023-08-26 13:50] VITALS: BP 143/84; PULSE 78; RESP 20; TEMP 36.8; O2SAT 98; BMI 31.3
--- NOTE | 2023-08-26 13:50 | ED_ITS ---
HPI - Chest Pain General Chief Complaint: Chest Pain Stated Complaint: chest pain around to back numbness arms hands Time Seen by Provider: 08/26/23 16:07 History of Present Illness HPI narrative: Pt is a 53yo male with a pmhx including fibromyalgia who presents to the ED with intermittent chest and back pain. Pt states that the pain started 2-3 months ago and lasts about 4-5days before spontaneously resolving for 2-3days before starting again. He notes that movement makes the pain worse and that ibuprofen doesn't help relieve it. He describes the pain as sharp in quality and radiating from the xiphoid process through the ribs and to the upper back bilaterally. Pt currently states the pain is worse on the right side of the chest and present in the RUQ. Pt also notes that the episodes of pain are associated with fevers/chills, constipation, dizziness, and shortness of breath. Pt denies headaches, pain with breathing, nausea, or vomiting. Pt states last BM was 2 days ago and was firm in consistency, which is abnormal for him. Pt notes a dx of fibromyalgia for a year with chronic left foot numbness and tingling from the toes to the knee and bilateral dorsal hand numbness. Pt states a consistent burning sensation on those areas when touched. Pt currently follows with pain management and primary care, and is awaiting MRI. Related Data Home Medications Medication Instructions Recorded Confirmed albuterol sulfate 90 mcg/actuation 2 puff inhalation Q4-6H PRN 07/28/23 07/31/23 aerosol inhaler (Ventolin HFA) amlodipine 10 mg tablet 10 mg PO DAILY 07/28/23 07/31/23 aripiprazole 10 mg tablet 10 mg PO QAM 07/28/23 07/31/23 ascorbic acid (vitamin C) 500 mg 1,000 mg PO DAILY 07/28/23 07/31/23 tablet (Vitamin C) aspirin 81 mg tablet,delayed 81 mg PO DAILY 07/28/23 07/31/23 release atorvastatin 80 mg tablet 80 mg PO DAILY 07/28/23 07/31/23 blood sugar diagnostic (FreeStyle #10 ea 07/28/23 07/31/23 Lite Strips) bupropion HCl 150 mg 24 hr tablet, 150 mg PO QAM 07/28/23 07/31/23 extended release calcium carbonate 500 mg-vitamin 1 tab PO DAILY 07/28/23 07/31/23 D3 10 mcg (400 unit) tablet (Oyster Shell Calcium-Vitamin D3) carvedilol 3.125 mg tablet 3.125 mg PO BID 07/28/23 07/31/23 clotrimazole 1 % topical cream appl topical BID 07/28/23 07/31/23 dulaglutide 0.75 mg/0.5 mL mg subcut QWEEK 07/28/23 07/31/23 subcutaneous pen injector (Trulicity) empagliflozin 10 mg tablet 10 mg PO QAM 07/28/23 07/31/23 (Jardiance) enalapril maleate 20 mg tablet 20 mg PO QAM 07/28/23 07/31/23 famotidine 20 mg tablet 20 mg PO BID 07/28/23 07/31/23 fluconazole 150 mg tablet mg PO 07/28/23 07/31/23 glipizide 10 mg tablet 10 mg PO 07/28/23 07/31/23 hydroxyzine HCl 25 mg tablet 25 mg PO BEDTIME 07/28/23 07/31/23 ibuprofen 800 mg tablet 800 mg PO TID 07/28/23 07/31/23 lancets 33 gauge (Easy Touch Twist #100 ea 07/28/23 07/31/23 Lancets) meloxicam 15 mg tablet 15 mg PO DAILY PRN pain 07/28/23 07/31/23 nicotine (polacrilex) 2 mg gum 2 mg PO Q2H PRN 07/28/23 07/31/23 nicotine 14 mg/24 hr daily 1 patch topical DAILY 07/28/23 07/31/23 transdermal patch nicotine 7 mg/24 hr daily transdermal 07/28/23 07/31/23 transdermal patch sildenafil 100 mg tablet (Viagra) 100 mg PO DAILY PRN 07/28/23 07/31/23 sulfamethoxazole 800 1 tab PO BID 07/28/23 07/31/23 mg-trimethoprim 160 mg tablet tramadol 50 mg tablet 50 mg PO Q6H PRN severe pain 07/28/23 07/31/23 trazodone 100 mg tablet 200 mg PO BEDTIME 07/28/23 07/31/23 vitamin B complex (B 1 tab PO DAILY 07/28/23 07/31/23 Complex-Vitamin B12 tablet) Previous Rx's Medication Instructions Recorded acetaminophen 500 mg tablet 500 mg PO Q6H PRN pain #20 tabs 01/27/23 lidocaine 5 % topical patch 1 patch topical DAILY PRN pain #15 01/27/23 ea gabapentin 600 mg tablet 600 mg PO TID 30 days #90 tabs 07/31/23 tizanidine 4 mg tablet 4 mg PO Q8H PRN muscle spasticity 07/31/23 3 days #90 tabs cyclobenzaprine 10 mg tablet 10 mg PO TID PRN muscle spasm #20 08/26/23 tabs Allergies Allergy/AdvReac Type Severity Reaction Status Date / Time Penicillins [PENICILLINS] Allergy Unknown SWELLING Verified 08/26/23 13:55 Penicillins Allergy Unknown Unknown Uncoded 08/26/23 13:55 Review of Systems 2 Constitutional: Constitutional: Reports chills, Reports fever(s), Denies headache(s) and Denies poor appetite Eyes: Eyes: Denies change in vision ENT: Reports dizziness and Denies headache(s) Cardiovascular: Cardiovascular: Reports chest pain, Reports chest pain at rest, Reports chest pain with activity, Reports Epigastric Pain, Reports lightheadedness, Denies radiating jaw, neck or arm pain, Denies palpitations and Reports dyspnea Respiratory: Respiratory: Denies cough, Denies pain on inspiration and Reports dyspnea Gastrointestinal: Gastrointestinal: Reports abdominal pain, Reports constipation, Denies diarrhea, Denies nausea and Denies vomiting Genitourinary: Genitourinary: Denies difficulty urinating Musculoskeletal: Musculoskeletal: Reports back pain, Reports numbness and Reports tingling Neurologic: Reports burning sensations, Reports dizziness, Denies headache(s), Reports numbness and Reports tingling Endocrine: Endocrine: Denies palpitations [facility] Past Medical History Medical History (Updated 08/26/23 @ 16:48 by Brett Ruiz) Obesity (BMI 30-39.9) Left arm pain Major depression Decreased vision Anxiety Hypercholesterolemia Essential hypertension Type 2 diabetes mellitus with complication, without long-term current use of insulin Chronic midline low back pain without sciatica ESME (obstructive sleep apnea) Dizziness Social History Advance Directives: No Advance Directives Information Provided: No Physical Exam 2 Vital Signs: Vital Signs: Last Vital Signs Temp 98.3 F 08/26/23 13:50 Pulse 78 08/26/23 13:50 Resp 20 08/26/23 13:50 BP 143/84 H 11/25/23 13:50 Pulse Ox 98 08/26/23 13:50 O2 Del Method Room Air 08/26/23 13:50 BMI result Body Mass Index 31.3 Const: General: cooperative, no acute distress, alert and awake O rientation/consciousness: patient oriented x3 HEENT: Head: Yes normal to inspection, Yes normocephalic and Yes atraumatic Ears: hearing grossly normal bilaterally General nose exam: Normal external nose present Eyes: General: appearance normal, both eyes and all related structures P upils: Equal, round and reactive pupils present Neck: Neck: Yes normal visual inspection and Yes full ROM Chest: Chest palpation & inspection: normal inspection of the chest, normal palpation of entire chest wall and tenderness sternum and xiphoid process Resp: Effort & Inspection: normal respiratory effort, able to speak in complete sentences, no cough, no grunting and no nasal flaring Auscultation: clear to auscultation bilaterally Cardio: Rate: regular rate Rhythm: regular rhythm Heart sounds: S1 normal heart sound present and S2 normal heart sound present GI: Inspection: Yes normal to inspection, No abdominal wall ecchymosis and No visible pulsation Palpation (GI): Tenderness to palpation present (GI) in the epigastrum and in the RUQ, no hepatosplenomegaly and no masses Auscultation: Hypoactive bowel sounds present : General: Yes no CVA tenderness Back/Spine/Pelvis: Back: no CVA tenderness Cervical Spine: normal cervical lordosis Thoracic/Lumbar Spine: thoracic and lumbar spine normal to inspection Skin: General skin exam: no rashes or lesions noted Neuro: General: patient oriented x3 and moves all extremities Cranial nerves: Yes CN's II-XII intact bilaterally and Yes Equal, round and reactive pupils present Extrem: General: Yes normal to inspection Left lower extremity: normal to inspection (pain when touched) Course Course Course Narrative: RME:?53 yo w/ pmhx of fibromyalgia, HTN, HDL, DM presents to the ED today for eval of epigastric pain radiating to back. No radiation to jaw/ down arms. Exacerbated with movement. States this has been intermittent for one year, has seen by his PCP for this and was told he needed an MRI. Denies sweating, fever, chills, palpitations. SOB, N/V. Denies etoh consumption. No known sick contacts. No recent travel/ long car rides. No injury/ trauma. PE: NAD. RRR. Anterior chest wall diffusely TTP, no palpable deformity. Lungs CT b/l. Pulses 2+ throughout. No pitting edema. Plan: EKG, labs, trop, CXR Full HPI, ROS and PE to be performed by the primary ED provider. Medications Administered Discontinued Medications Generic Name Dose Route Start Last Admin Trade Name Freq PRN Reason Stop Dose Admin Cyclobenzaprine HCl 10 mg 08/26/23 16:26 08/26/23 16:30 Cyclobenzaprine Hcl 10 Mg Tablet PO 08/26/23 16:27 10 mg ONCE ONE Administration Medical Decision Making Medical Decision Making [facility] Narrative: 53-year-old male presents for evaluation of multiple complaints. He complains of numbness, pain, chest pain, constipation. With rule out for ACS, still passing gas having bowel movements, he rules out bowel obstruction. The patient has chronic pain and follows with pain management. He is due to have an MRI of his lumbar spine with his PCP. I reviewed his workup with him, his labs are reassuring, EKG is unchanged from December. His chest x-ray is clear. No acute concerning findings. I discussed all this with the patient. We will treat his upper back pain cyclobenzaprine but he will follow-up with outpatient provider Differential Diagnosis Differential Diagnoses: The differential diagnosis associated with the presentation includes (fibromyalgia, cholelithiasis, peripheral neuropathy, disc herniation, costochondritis) Admission/Observation Consideration of admission/observation: Escalation of care including admission/observation considered Patient complaining of chest pain but ruled out for ACS Lab Data [facility] Lab Attestation statement: I reviewed the patient's lab results. No leukocytosis or anemia. Normal platelet count. No significant electrolyte abnormalities. The patient's CO2 is slightly elevated to 30 which may be related to untreated sleep apnea. Normal renal function, troponin within normal limits 08/26/23 14:05 08/26/23 14:05 Labs: Lab Results 08/26/23 08/26/23 Range/Units 14:05 14:06 WBC 8.7 (4.8-10.8) X10*3/uL RBC 5.32 (4.60-5.80) X10*6/uL Hgb 15.7 (14.0-18.0) g/dl Hct 45.0 (42.0-52.0) % MCV 84.6 (80.0-98.0) fL MCH 29.5 (27.0-33.0) pg MCHC 34.9 (31.0-36.0) g/dl RDW 12.6 (11.0-16.0) % Plt Count 196 (160-400) X10*3/uL MPV 11.3 (9.4-12.4) fL Immature Gran % (Auto) 0.2 (0.0-0.4) % Neut % (Auto) 70.6 (45-73) % Lymph % (Auto) 18.8 L (20-40) % [place] % (Auto) 8.7 (2-11) % Eos % (Auto) 1.5 (0-4) % Baso % (Auto) 0.2 (0-2) % Lymph # (Auto) 1.6 (1.2-4.9) X10*3/uL [place] # (Auto) 0.8 (0.1-1.2) X10*3/uL Eos # (Auto) 0.1 (0.0-0.4) X10*3/uL Baso # (Auto) 0.0 (0.0-0.2) X10*3/uL Abs Immat Gran (auto) 0.02 (0.00-0.03) X10*3/uL Absolute Neuts (auto) 6.1 (2.0-8.3) x10*3/uL Absolute Nucleated RBC 0.000 (0.0-0.012) X10*3/uL Nucleated RBC % (auto) 0.0 (0.0-0.2) /100WBC PT 11.5 (11.1-13.3) SEC INR 0.9 (0.9-1.1) Sodium 142 (135-145) mmol/L Potassium 3.4 (3.3-5.1) mmol/L Chloride 103 (96-108) mmol/L Carbon Dioxide 30 H (22-29) mmol/L Anion Gap 12 (12-20) BUN 16 (9-16) mg/dL Creatinine 1.12 (0.5-1.4) mg/dL Estim Creat Clear Calc 84.5 Estimated GFR > 60 Random Glucose 256 H (60-115) mg/dL Calcium 10.2 (8.4-10.2) mg/dL Magnesium 1.7 (1.6-2.6) mg/dL Troponin I High Sens 18.4 (<3.5-35.0) ng/L Lipase 22 (8-78) U/L Influenza Type A (PCR) NEGATIVE (Negative) Influenza Type B (PCR) NEGATIVE (Negative) RSV RNA Qual (PCR) NEGATIVE (Negative) SARS-CoV-2 RNA (RT-PCR) NEGATIVE (Negative) Independent Interpretation I performed an independent interpretation of an: EKG (Normal sinus rhythm with a rate of 80 beats minute. Right bundle branch block, left bundle-branch block. There are no significant change when compared to EKG from December 2022) and Plain X-Ray (No acute disease in the chest) Radiology Impression Discussion of test interpretation with radiology: I have reviewed the radiologist's reading. (Unremarkable chest examination) Discharge Plan Discharge Clinical Impression: Chest pain, Back pain Patient Disposition: Home, Self-Care Instructions: Chest Pain (ED), Back Pain (ED) Additional Instructions: Follow-up with your primary doctor. Your workup in the emergency department today was reassuring You may take cyclobenzaprine as needed for muscle spasms. This may make you sleepy, did not drink alcohol or drive after taking Return for new or worsening symptoms Prescriptions: New cyclobenzaprine 10 mg tablet 10 mg PO TID PRN (Reason: muscle spasm) Qty: 20 0RF No Action acetaminophen 500 mg tablet 500 mg PO Q6H PRN (Reason: pain) Qty: 20 0RF lidocaine 5 % adhesive patch,medicated 1 patch topical DAILY PRN (Reason: pain) Qty: 15 0RF Rx Instructions: leave on most painful area for up to 12 hrs nicotine 7 mg/24 hr patch 24 hour transdermal nicotine (polacrilex) 2 mg gum 2 mg PO Q2H PRN nicotine 14 mg/24 hr patch 24 hour 1 patch topical DAILY Trulicity 0.75 mg/0.5 mL pen injector subcut QWEEK clotrimazole 1 % cream topical BID calcium carbonate-vitamin D3 [Oyster Shell Calcium-Vit D3] 500 mg-10 mcg (400 unit) tablet 1 tab PO DAILY vitamin B complex [B Complex-Vitamin B12] Tablet 1 tab PO DAILY ascorbic acid (vitamin C) [Vitamin C] 500 mg tablet 1,000 mg PO DAILY sulfamethoxazole-trimethoprim 800-160 mg tablet 1 tab PO BID Jardiance 10 mg tablet 10 mg PO QAM (DME) lancets [Easy Touch Twist Lancets] 33 gauge misc See Rx Instructions .ROUTE BID Qty: 100 Rx Instructions: As directed bupropion HCl 150 mg tablet extended release 24 hr 150 mg PO QAM aripiprazole 10 mg tablet 10 mg PO QAM hydroxyzine HCl 25 mg tablet 25 mg PO BEDTIME albuterol sulfate [Ventolin HFA] 90 mcg/actuation HFA aerosol inhaler 2 puff inhalation Q4-6H PRN amlodipine 10 mg tablet 10 mg PO DAILY trazodone 100 mg tablet 200 mg PO BEDTIME aspirin 81 mg tablet,delayed release (DR/EC) 81 mg PO DAILY (DME) FreeStyle Lite Strips Strip See Rx Instructions .ROUTE BID Qty: 10 Rx Instructions: As directed glipizide 10 mg tablet 10 mg PO enalapril maleate 20 mg tablet 20 mg PO QAM fluconazole 150 mg tablet PO ibuprofen 800 mg tablet 800 mg PO TID atorvastatin 80 mg tablet 80 mg PO DAILY sildenafil [Viagra] 100 mg tablet 100 mg PO DAILY PRN famotidine 20 mg tablet 20 mg PO BID meloxicam 15 mg tablet 15 mg PO DAILY PRN (Reason: pain) tramadol 50 mg tablet 50 mg PO Q6H PRN (Reason: severe pain) carvedilol 3.125 mg tablet 3.125 mg PO BID gabapentin 600 mg tablet 600 mg PO TID 30 Days Qty: 90 8RF tizanidine 4 mg tablet 4 mg PO Q8H PRN (Reason: muscle spasticity) 3 Days Qty: 90 0RF
[2023-08-26 14:13] LABS: MANUAL DIFF FLAG NO
[2023-08-26 14:16] LABS: Basophils Percent Auto 0.2 % (0-2); Eosinophils Absolute Auto 0.1 X10*3/uL (0.0-0.4); Eosinophils Percent Auto 1.5 % (0-4); Hemoglobin 15.7 g/dl (14.0-18.0); Imm Gran Abs Auto 0.02 X10*3/uL (0.00-0.03); Imm Gran Pct Auto 0.2 % (0.0-0.4); Lymphocytes Absolute Auto 1.6 X10*3/uL (1.2-4.9); Lymphocytes Percent Auto 18.8 % (20-40); Mean Corpuscular HGB Conc 34.9 g/dl (31.0-36.0); Mean Corpuscular Hemoglobin 29.5 pg (27.0-33.0); Mean Corpuscular Volume 84.6 fL (80.0-98.0); Mean Platelet Volume 11.3 fL (9.4-12.4); Monocytes Absolute Auto 0.8 X10*3/uL (0.1-1.2); Monocytes Percent Auto 8.7 % (2-11); Neutrophils Absolute Auto 6.1 x10*3/uL (2.0-8.3); Neutrophils Percent Auto 70.6 % (45-73); Platelet Count 196 X10*3/uL (160-400); Red Blood Count 5.32 X10*6/uL (4.60-5.80); Red Cell Distribution Width 12.6 % (11.0-16.0); White Blood Count 8.7 X10*3/uL (4.8-10.8)
[2023-08-26 14:35] LABS: INTERNATIONAL NORM RATIO 0.9 (0.9-1.1); Prothrombin Time 11.5 SEC (11.1-13.3)
[2023-08-26 14:38] LABS: Anion Gap 12 (12-20); Blood Urea Nitrogen 16 mg/dL (9-16); Calcium 10.2 mg/dL (8.4-10.2); Carbon Dioxide 30 mmol/L (22-29); Chloride 103 mmol/L (96-108); Creatinine Clr Calc Pharmacy 84.5; Estimated Glomerular Filt Rate > 60; Glucose Random 256 mg/dL (60-115); Lipase 22 U/L (8-78); Magnesium 1.7 mg/dL (1.6-2.6); Potassium 3.4 mmol/L (3.3-5.1); Sodium 142 mmol/L (135-145)
[2023-08-26 14:47] LABS: Troponin-I High Sensitivity 18.4 ng/L (<3.5-35.0)
[2023-08-26 14:50] LABS: Influenza A PCR NEGATIVE (Negative); Influenza B PCR NEGATIVE (Negative); Resp Syncy Virus RNA Qual PCR NEGATIVE (Negative); SARS COV2 PCR INHOUSE NEGATIVE (Negative)
[2023-08-26] MEDS: Cyclobenzaprine HCl 10 MG TABLET PO (16:30)
== END 2023-08-26 17:14 | disposition home or self-care (01) ==
PROVIDERS: Physician Assistant Medical; Emergency Provider Emergency Medicine Emergency Medical Services; PCP Nurse Practitioner Primary Care
DX: R07.9 Chest pain, unspecified (principal); M54.6 Pain in thoracic spine; Z20.822 Contact with and (suspected) exposure to COVID-19; Z20.828 Contact with and (suspected) exposure to other viral communicable diseases; E11.9 Type 2 diabetes mellitus without complications; I10 Essential (primary) hypertension; E78.00 Pure hypercholesterolemia, unspecified; Z79.82 Long term (current) use of aspirin; Z79.02 Long term (current) use of antithrombotics/antiplatelets; Z79.899 Other long term (current) drug therapy; Z79.85 Long-term (current) use of injectable non-insulin antidiabetic drugs
CPT/HCPCS: 0241U; 36415; 71046; 80048; 83690; 83735; 84484; 85025; 85610; 93005; 99283; 99284

== ENCOUNTER 2023-10-30 11:38 | Emergency (ER) | payer MEDICAID, SELFPAY ==
--- NOTE | ~2023-10-30 | XR_ITS ---
EXAMINATION: XR ANKLE, LEFT CLINICAL INFORMATION: Lateral tenderness after fall COMPARISON: None available. TECHNIQUE: AP, lateral, and mortise views of the left ankle. FINDINGS: No fracture. Alignment is anatomic. No erosions. Joint spaces are maintained. XR/XR ankle LT 2V IMPRESSION: No acute bony abnormality.
--- NOTE | ~2023-10-30 | XR_ITS ---
EXAMINATION: XR RIBS, LEFT CLINICAL INFORMATION: Tenderness after fall COMPARISON: Chest 08/26/2023 TECHNIQUE: PA chest and 3 views of the left ribs were obtained. FINDINGS: Lungs are clear. No consolidation, pneumothorax, or pleural effusion. The cardiomediastinal silhouette and pulmonary vasculature are normal. Surgical clip is seen in the left upper quadrant. Small calcific densities adjacent to the left humeral head is consistent with calcific tendinitis. Ribs are intact. No fractures are identified. XR/XR ribs LT min 3V w CXR1V IMPRESSION: 1. No displaced left rib fracture. 2. Calcific tendinitis of the left shoulder.
--- NOTE | 2023-10-30 11:44 | ED_ITS ---
HPI - General Adult General Chief complaint: Chest Pain Stated complaint: L CHEST PAIN,FELT POP PER EMS Time Seen by Provider: 10/30/23 11:44 Source: patient, EMS and RN notes reviewed Mode of arrival: EMS Limitations: no limitations History of Present Illness HPI narrative: Patient is a 53-year-old male with history of fibromyalgia, chronic pain syndrome, DM presenting to the emergency department with complaint of chest pain and left lateral rib pain for the past month. Patient states that today he was attempting to go to the bathroom and felt a popping sensation with increased pain to his left rib area. States he has been constipated recently and was attempting to have a bowel movement when this happened today. Denies shortness of breath or cough. Denies fevers. Denies lower extremity edema, calf pain or swelling. States that he had a fall on Monday, lost his balance due to fibromyalgia and has had the rib pain since that time. Also complaining of left ankle pain. Denies head strike or loss of consciousness. Patient received aspirin and nitro from EMS. MD complaint: Chest and rib pain Onset (ago): hour(s) Location: chest Severity: severe Quality: sharp Pain Consistency: colicky Relieving factors: rest Exacerbating factors: movement Related Data Home Medications Medication Instructions Recorded Confirmed albuterol sulfate 90 mcg/actuation 2 puff inhalation Q4-6H PRN 07/28/23 07/31/23 aerosol inhaler (Ventolin HFA) amlodipine 10 mg tablet 10 mg PO DAILY 07/28/23 07/31/23 aripiprazole 10 mg tablet 10 mg PO QAM 07/28/23 07/31/23 ascorbic acid (vitamin C) 500 mg 1,000 mg PO DAILY 07/28/23 07/31/23 tablet (Vitamin C) aspirin 81 mg tablet,delayed 81 mg PO DAILY 07/28/23 07/31/23 release atorvastatin 80 mg tablet 80 mg PO DAILY 07/28/23 07/31/23 blood sugar diagnostic (FreeStyle #10 ea 07/28/23 07/31/23 Lite Strips) bupropion HCl 150 mg 24 hr tablet, 150 mg PO QAM 07/28/23 07/31/23 extended release calcium carbonate 500 mg-vitamin 1 tab PO DAILY 07/28/23 07/31/23 D3 10 mcg (400 unit) tablet (Oyster Shell Calcium-Vitamin D3) carvedilol 3.125 mg tablet 3.125 mg PO BID 07/28/23 07/31/23 clotrimazole 1 % topical cream appl topical BID 07/28/23 07/31/23 dulaglutide 0.75 mg/0.5 mL mg subcut QWEEK 07/28/23 07/31/23 subcutaneous pen injector (Trulicity) empagliflozin 10 mg tablet 10 mg PO QAM 07/28/23 07/31/23 (Jardiance) enalapril maleate 20 mg tablet 20 mg PO QAM 07/28/23 07/31/23 famotidine 20 mg tablet 20 mg PO BID 07/28/23 07/31/23 fluconazole 150 mg tablet mg PO 07/28/23 07/31/23 glipizide 10 mg tablet 10 mg PO 07/28/23 07/31/23 hydroxyzine HCl 25 mg tablet 25 mg PO BEDTIME 07/28/23 07/31/23 ibuprofen 800 mg tablet 800 mg PO TID 07/28/23 07/31/23 lancets 33 gauge (Easy Touch Twist #100 ea 07/28/23 07/31/23 Lancets) meloxicam 15 mg tablet 15 mg PO DAILY PRN pain 07/28/23 07/31/23 nicotine (polacrilex) 2 mg gum 2 mg PO Q2H PRN 07/28/23 07/31/23 nicotine 14 mg/24 hr daily 1 patch topical DAILY 07/28/23 07/31/23 transdermal patch nicotine 7 mg/24 hr daily transdermal 07/28/23 07/31/23 transdermal patch sildenafil 100 mg tablet (Viagra) 100 mg PO DAILY PRN 07/28/23 07/31/23 sulfamethoxazole 800 1 tab PO BID 07/28/23 07/31/23 mg-trimethoprim 160 mg tablet tramadol 50 mg tablet 50 mg PO Q6H PRN severe pain 07/28/23 07/31/23 trazodone 100 mg tablet 200 mg PO BEDTIME 07/28/23 07/31/23 vitamin B complex (B 1 tab PO DAILY 07/28/23 07/31/23 Complex-Vitamin B12 tablet) Previous Rx's Medication Instructions Recorded acetaminophen 500 mg tablet 500 mg PO Q6H PRN pain #20 tabs 01/27/23 lidocaine 5 % topical patch 1 patch topical DAILY PRN pain #15 01/27/23 ea gabapentin 600 mg tablet 600 mg PO TID 30 days #90 tabs 07/31/23 tizanidine 4 mg tablet 4 mg PO Q8H PRN muscle spasticity 07/31/23 3 days #90 tabs cyclobenzaprine 10 mg tablet 10 mg PO TID PRN muscle spasm #20 08/26/23 tabs lidocaine 5 % topical patch 1 patch topical DAILY #15 ea 10/30/23 Allergies Allergy/AdvReac Type Severity Reaction Status Date / Time Penicillins [PENICILLINS] Allergy Unknown SWELLING Verified 10/30/23 12:02 Penicillins Allergy Unknown Unknown Uncoded 08/26/23 13:55 Review of Systems 2 Review of Systems: As per HPI. Yes all other systems are reviewed and are negative Constitutional: Constitutional: Reports as per HPI [facility] Past Medical History Medical History (Updated 10/30/23 @ 15:21 by Amparo Shelley NP) Obesity (BMI 30-39.9) Left arm pain Major depression Decreased vision Anxiety Hypercholesterolemia Essential hypertension Type 2 diabetes mellitus with complication, without long-term current use of insulin Chronic midline low back pain without sciatica ESME (obstructive sleep apnea) Dizziness Social History Social History Advance Directives: No Advance Directives Information Provided: No Physical Exam ED Vital Signs: Vital Signs - 24 hr 10/30/23 11:59 10/30/23 13:33 10/30/23 13:35 Temperature 98.7 F Pulse Rate 80 69 Respiratory Rate 19 24 H 17 Blood Pressure 132/86 133/75 Pulse Oximetry 97 98 Oxygen Delivery Method Room Air Room Air 10/30/23 15:24 Temperature 98.1 F Pulse Rate 71 Respiratory Rate 20 Blood Pressure 146/80 H Pulse Oximetry 97 Oxygen Delivery Method Room Air BMI result Body Mass Index 30.5 Const General: cooperative, healthy appearing and no acute distress Orientation/consciousness: oriented to person, oriented to place, oriented to time and patient oriented x3 Limitations: no limitations HENMT Head: Yes normocephalic and Yes atraumatic Ears: external ears normal General nose exam: Normal external nose present Face and sinus: Yes face symmetric Mouth: oropharynx normal and moist mucous membranes Throat: Yes uvula midline Eyes Pupils: Equal, round and reactive pupils present Neck Neck: Yes normal visual inspection and Yes supple Chest Chest palpation & inspection: normal inspection of the chest and tenderness rib left anterior-axillary line Resp Effort & Inspection: normal respiratory effort and able to speak in complete sentences Auscultation: clear to auscultation bilaterally Cardio Rate: regular rate Rhythm: regular rhythm Heart sounds: S1 normal heart sound present and S2 normal heart sound present GI Palpation (GI): Soft to palpation and nontender Auscultation: normoactive bowel sounds General: Yes no CVA tenderness Back/Spine/Pelvis Back: no CVA tenderness Skin General skin exam: elasticity normal and turgor normal Neuro General: oriented to person, oriented to place, oriented to time, patient oriented x3, moves all extremities, no focal motor deficits and CN's II-XI intact bilaterally Cranial nerves: Yes Equal, round and reactive pupils present Cognition (Neuro): normal cognition Extrem General: Yes full ROM, Yes no pedal edema and Yes no calf tenderness Left lower extremity: ankle Details: normal to inspection, tenderness Location: of the lateral malleolus, no edema and normal ROM; no ecchymosis Psych Mental Status: mental status grossly normal Affect: normal affect Thought process: Normal thought process present Medications Administered Discontinued Medications Generic Name Dose Route Start Last Admin Trade Name Freq PRN Reason Stop Dose Admin Potassium Chloride 10 meq in 100 mls @ 100 mls/hr 10/30/23 13:15 10/30/23 14:52 Potassium Chloride/H20 IV 10/30/23 15:14 75 mls/hr Q1H DAISHA Administration Magnesium Sulfate 2 gm in 50 mls @ 25 mls/hr 10/30/23 14:10 10/30/23 14:52 Magnesium Sulfate/H2o IV 10/30/23 16:09 25 mls/hr ONCE ONE Administration Ketorolac Tromethamine 15 mg 10/30/23 12:11 10/30/23 12:15 Ketorolac Tromethamine 15 Mg/Ml Vial IVPUSH 10/30/23 12:12 15 mg ONCE ONE Administration Morphine Sulfate 4 mg 10/30/23 13:21 10/30/23 13:35 Morphine Sulfate 4 Mg/Ml Cartridge IVPUSH 10/30/23 13:22 4 mg ONCE ONE Administration Protocol Potassium Chloride 40 meq 10/30/23 12:51 10/30/23 13:34 Potassium Chloride Er 20 Meq Tab.Er.Prt PO 10/30/23 12:52 40 meq ONCE ONE Administration Medical Decision Making Medical Decision Making [facility] Narrative: Patient is a 53-year-old male with history of fibromyalgia, chronic pain syndrome, DM presenting to the emergency department with complaint of chest pain and left lateral rib pain for the past month. On exam patient is awake, A+Ox3, VS WNL, afebrile, normal neurological exam without focal deficits, physical exam findings as above. Given reported symptoms and physical exam findings, initial differential includes ACS, musculoskeletal pain, GERD, PUD, rib fracture, contusion, ankle fracture, sprain, contusion. Do not suspect pneumonia, pneumothorax. PE unlikely, Wells score of 0. Plan: EKG, Rib and CXR, labs, ankle xray Labs notable for hypokalemmia and hypomagnesemia, troponin 13.6, will obtain repeat, no leukocytosis, no anemia, no evidence of SANTO. IV and PO potassium and IV magnesium ordered. X-ray ribs/chest notable for no fractures. X-ray left ankle notable for no fracture. My interpretation is in agreement with the radiologist's interpretation. EKG shows NSR with RBBB, similar to prior. Patient denied any change in pain with ketorolac, morphine ordered. Patient signed out to SALLY Mercado pending repeat troponin and potassium. Differential Diagnosis Differential Diagnoses: The differential diagnosis associated with the presentation includes As per [facility] Admission/Observation Consideration of admission/observation: Escalation of care including admission/observation considered Lab Data [facility] Lab Attestation statement: I reviewed the patient's lab results. As per [facility] 10/30/23 12:10 10/30/23 12:10 Labs: Lab Results 10/30/23 Range/Units 12:10 WBC 8.9 (4.8-10.8) X10*3/uL RBC 4.70 (4.60-5.80) X10*6/uL Hgb 14.5 (14.0-18.0) g/dl Hct 39.7 L (42.0-52.0) % MCV 84.5 (80.0-98.0) fL MCH 30.9 (27.0-33.0) pg MCHC 36.5 H (31.0-36.0) g/dl RDW 12.2 (11.0-16.0) % Plt Count 184 (160-400) X10*3/uL MPV 11.5 (9.4-12.4) fL Immature Gran % (Auto) 0.3 (0.0-0.4) % Neut % (Auto) 68.6 (45-73) % Lymph % (Auto) 19.9 L (20-40) % [place] % (Auto) 8.9 (2-11) % Eos % (Auto) 2.0 (0-4) % Baso % (Auto) 0.3 (0-2) % Lymph # (Auto) 1.8 (1.2-4.9) X10*3/uL [place] # (Auto) 0.8 (0.1-1.2) X10*3/uL Eos # (Auto) 0.2 (0.0-0.4) X10*3/uL Baso # (Auto) 0.0 (0.0-0.2) X10*3/uL Abs Immat Gran (auto) 0.03 (0.00-0.03) X10*3/uL Absolute Neuts (auto) 6.1 (2.0-8.3) x10*3/uL Absolute Nucleated RBC 0.000 (0.0-0.012) X10*3/uL Nucleated RBC % (auto) 0.0 (0.0-0.2) /100WBC PT 13.5 H (11.1-13.3) SEC INR 1.1 (0.9-1.1) Sodium 143 (135-145) mmol/L Potassium 2.7 L* (3.3-5.1) mmol/L Chloride 106 (96-108) mmol/L Carbon Dioxide 28 (22-29) mmol/L Anion Gap 12 (12-20) BUN 14 (9-16) mg/dL Creatinine 0.85 (0.5-1.4) mg/dL Estim Creat Clear Calc 110.0 Estimated GFR > 60 Random Glucose 129 H (60-115) mg/dL Calcium 8.6 D (8.4-10.2) mg/dL Magnesium 1.5 L (1.6-2.6) mg/dL Total Bilirubin 1.2 H (0.0-1.0) mg/dL AST 10 (5-37) U/L ALT 8 (0-40) U/L Alkaline Phosphatase 73 (39-117) U/L Troponin I High Sens 13.6 (<3.5-35.0) ng/L Total Protein 6.2 L (6.5-8.0) g/dL Albumin 3.6 (3.5-5.0) g/dL COVID-19 (KIRT) Negative (Negative) COVID-19 Clin Com See Note Influenza Type A (ALPA) Negative (Negative) Influenza Type B (ALPA) Negative (Negative) Influenza A & B Note See Note Independent Interpretation I performed an independent interpretation of an: Plain X-Ray Interpretation: No acute Rib fractures, no left ankle fracture Radiology Impression Discussion of test interpretation with radiology: I have reviewed the radiologist's reading. Radiologist Impression: XR/XR ankle LT 2V IMPRESSION: No acute bony abnormality. XR/XR ribs LT min 3V w CXR1V IMPRESSION: 1. No displaced left rib fracture. 2. Calcific tendinitis of the left shoulder. External Record Review External record reviewed: Inpatient record, Office record and Outpatient record Discharge Plan Discharge Clinical Impression: Chest pain, Hypomagnesemia, Hypokalemia, Ankle pain, left Patient Disposition: Still a Patient Instructions: Chest Pain (DC), Potassium Content of Foods List (ED), Hypokalemia (ED), Hypomagnesemia (ED) Additional Instructions: You were evaluated in the emergency department today for chest pain. Your evaluation has shown no signs of medical conditions requiring emergent intervention at this time, however we recommend that you follow-up with your primary care physician as soon as possible for further testing as an outpatient. Your potassium and magnesium levels were significantly low in the emergency department today. These were replaced but you should follow-up with your primary care provider to have your levels rechecked this week. Return to the emergency department if you experience worsening or uncontrolled chest pain, shortness of breath, lightheadedness, feeling faint, loss of consciousness, nausea, vomiting, or any other concerning symptoms. Prescriptions: New lidocaine 5 % adhesive patch,medicated 1 patch topical DAILY Qty: 15 0RF Rx Instructions: leave on most painful area for up to 12 hrs No Action acetaminophen 500 mg tablet 500 mg PO Q6H PRN (Reason: pain) Qty: 20 0RF lidocaine 5 % adhesive patch,medicated 1 patch topical DAILY PRN (Reason: pain) Qty: 15 0RF Rx Instructions: leave on most painful area for up to 12 hrs cyclobenzaprine 10 mg tablet 10 mg PO TID PRN (Reason: muscle spasm) Qty: 20 0RF nicotine 7 mg/24 hr patch 24 hour transdermal nicotine (polacrilex) 2 mg gum 2 mg PO Q2H PRN nicotine 14 mg/24 hr patch 24 hour 1 patch topical DAILY Trulicity 0.75 mg/0.5 mL pen injector subcut QWEEK clotrimazole 1 % cream topical BID calcium carbonate-vitamin D3 [Oyster Shell Calcium-Vit D3] 500 mg-10 mcg (400 unit) tablet 1 tab PO DAILY vitamin B complex [B Complex-Vitamin B12] Tablet 1 tab PO DAILY ascorbic acid (vitamin C) [Vitamin C] 500 mg tablet 1,000 mg PO DAILY sulfamethoxazole-trimethoprim 800-160 mg tablet 1 tab PO BID Jardiance 10 mg tablet 10 mg PO QAM (DME) lancets [Easy Touch Twist Lancets] 33 gauge misc See Rx Instructions .ROUTE BID Qty: 100 Rx Instructions: As directed bupropion HCl 150 mg tablet extended release 24 hr 150 mg PO QAM aripiprazole 10 mg tablet 10 mg PO QAM hydroxyzine HCl 25 mg tablet 25 mg PO BEDTIME albuterol sulfate [Ventolin HFA] 90 mcg/actuation HFA aerosol inhaler 2 puff inhalation Q4-6H PRN amlodipine 10 mg tablet 10 mg PO DAILY trazodone 100 mg tablet 200 mg PO BEDTIME aspirin 81 mg tablet,delayed release (DR/EC) 81 mg PO DAILY (DME) FreeStyle Lite Strips Strip See Rx Instructions .ROUTE BID Qty: 10 Rx Instructions: As directed glipizide 10 mg tablet 10 mg PO enalapril maleate 20 mg tablet 20 mg PO QAM fluconazole 150 mg tablet PO ibuprofen 800 mg tablet 800 mg PO TID atorvastatin 80 mg tablet 80 mg PO DAILY sildenafil [Viagra] 100 mg tablet 100 mg PO DAILY PRN famotidine 20 mg tablet 20 mg PO BID meloxicam 15 mg tablet 15 mg PO DAILY PRN (Reason: pain) tramadol 50 mg tablet 50 mg PO Q6H PRN (Reason: severe pain) carvedilol 3.125 mg tablet 3.125 mg PO BID gabapentin 600 mg tablet 600 mg PO TID 30 Days Qty: 90 8RF tizanidine 4 mg tablet 4 mg PO Q8H PRN (Reason: muscle spasticity) 3 Days Qty: 90 0RF
--- NOTE | 2023-10-30 11:48 | ECG_ITS ---
Test Reason : CP Blood Pressure : / mmHG Vent. Rate : 072 BPM Atrial Rate : 072 BPM P-R Int : 156 ms QRS Dur : 132 ms QT Int : 436 ms P-R-T Axes : 059 -68 007 degrees QTc Int : 477 ms Normal sinus rhythm Right bundle branch block Left anterior fascicular block Bifascicular block Abnormal ECG When compared with ECG of 26-AUG-2023 13:32, Nonspecific T wave abnormality has replaced inverted T waves in Lateral leads Referred By: Berna Ruiz Electronically Signed By:MATTIE LEON MD
[2023-10-30 11:49] VITALS: BP 126/87; PULSE 86; O2SAT 100
[2023-10-30 11:59] VITALS: BP 132/86; PULSE 80; RESP 19; TEMP 37.1; O2SAT 97; BMI 30.5
[2023-10-30] MEDS: Ketorolac Tromethamine 15 MG/ML VIAL IVPUSH (12:15)
[2023-10-30 12:21] LABS: MANUAL DIFF FLAG NO
[2023-10-30 12:23] LABS: Basophils Percent Auto 0.3 % (0-2); Eosinophils Absolute Auto 0.2 X10*3/uL (0.0-0.4); Hematocrit 39.7 % (42.0-52.0); Hemoglobin 14.5 g/dl (14.0-18.0); Imm Gran Abs Auto 0.03 X10*3/uL (0.00-0.03); Imm Gran Pct Auto 0.3 % (0.0-0.4); Lymphocytes Absolute Auto 1.8 X10*3/uL (1.2-4.9); Lymphocytes Percent Auto 19.9 % (20-40); Mean Corpuscular HGB Conc 36.5 g/dl (31.0-36.0); Mean Corpuscular Hemoglobin 30.9 pg (27.0-33.0); Mean Corpuscular Volume 84.5 fL (80.0-98.0); Mean Platelet Volume 11.5 fL (9.4-12.4); Monocytes Absolute Auto 0.8 X10*3/uL (0.1-1.2); Monocytes Percent Auto 8.9 % (2-11); Neutrophils Absolute Auto 6.1 x10*3/uL (2.0-8.3); Neutrophils Percent Auto 68.6 % (45-73); Platelet Count 184 X10*3/uL (160-400); Red Cell Distribution Width 12.2 % (11.0-16.0); White Blood Count 8.9 X10*3/uL (4.8-10.8)
[2023-10-30 12:28] LABS: INTERNATIONAL NORM RATIO 1.1 (0.9-1.1); Prothrombin Time 13.5 SEC (11.1-13.3)
[2023-10-30 12:32] VITALS: PULSE 86
[2023-10-30 12:43] LABS: COVID-19 Test Negative (Negative); IDNOW Serial# 152EDE1D; IDNOW Serial# 9DB6401D; Influenza A Negative (Negative); Influenza B2 Negative (Negative)
[2023-10-30 12:50] LABS: Alanine Aminotransferase 8 U/L (0-40); Albumin Level 3.6 g/dL (3.5-5.0); Alkaline Phosphatase 73 U/L (39-117); Anion Gap 12 (12-20); Aspartate Amino Transferase 10 U/L (5-37); Bilirubin Total 1.2 mg/dL (0.0-1.0); Blood Urea Nitrogen 14 mg/dL (9-16); Calcium 8.6 mg/dL (8.4-10.2); Carbon Dioxide 28 mmol/L (22-29); Chloride 106 mmol/L (96-108); Estimated Glomerular Filt Rate > 60; Glucose Random 129 mg/dL (60-115); Potassium 2.7 mmol/L (3.3-5.1); Sodium 143 mmol/L (135-145); Total Protein 6.2 g/dL (6.5-8.0)
[2023-10-30 12:55] LABS: Troponin-I High Sensitivity 13.6 ng/L (<3.5-35.0)
[2023-10-30 13:33] VITALS: BP 133/75; PULSE 69; RESP 24; O2SAT 98
[2023-10-30] MEDS: Potassium Chloride ER 20 MEQ TAB.ER.PRT 40 MEQ PO (13:34)
[2023-10-30 13:35] VITALS: RESP 17
[2023-10-30] MEDS: Morphine Sulfate 4 MG/ML CARTRIDGE IVPUSH (13:35)
[2023-10-30] MEDS: Potassium Chloride/H20 10 MEQ/100 ML PIGGYBACK 100 MEQ IV (13:35)
[2023-10-30 13:51] LABS: Magnesium 1.5 mg/dL (1.6-2.6)
[2023-10-30] MEDS: Potassium Chloride/H20 10 MEQ/100 ML PIGGYBACK 75 MEQ IV (14:52)
[2023-10-30] MEDS: Magnesium Sulfate/H2O 2 GM/50 ML PIGGYBACK IV (14:52)
[2023-10-30 15:24] VITALS: BP 146/80; PULSE 71; RESP 20; TEMP 36.7; O2SAT 97
[2023-10-30 16:52] LABS: Anion Gap 12 (12-20); Blood Urea Nitrogen 16 mg/dL (9-16); Calcium 9.5 mg/dL (8.4-10.2); Carbon Dioxide 30 mmol/L (22-29); Chloride 104 mmol/L (96-108); Creatinine Clr Calc Pharmacy 95.4; Estimated Glomerular Filt Rate > 60; Glucose Random 100 mg/dL (60-115); Potassium 3.3 mmol/L (3.3-5.1); Sodium 143 mmol/L (135-145)
[2023-10-30 16:54] LABS: Troponin-I High Sensitivity 14.7 ng/L (<3.5-35.0)
== END 2023-10-30 18:00 | disposition home or self-care (01) ==
PROVIDERS: Nurse Practitioner Family; Registered Nurse Emergency; Emergency Provider Emergency Medicine; PCP Nurse Practitioner Primary Care
DX: R07.9 Chest pain, unspecified (principal); E83.42 Hypomagnesemia; M25.572 Pain in left ankle and joints of left foot; R07.81 Pleurodynia; E11.9 Type 2 diabetes mellitus without complications; E87.6 Hypokalemia; Z11.52 Encounter for screening for COVID-19
CPT/HCPCS: 36415; 71101; 73600; 80048; 80053; 83735; 84484; 85025; 85610; 87502; 87635; 93005; 96365; 96366; 96375; 99285; J1885; J2270; J3475; J3480

== ENCOUNTER → 2023-10-30 11:48 | Outpatient (BNV) | payer MEDICAID, SELFPAY | PROVIDERS: Emergency Provider Emergency Medicine; PCP Nurse Practitioner Primary Care; Visit Provider Internal Medicine Cardiovascular Disease | DX: I45.2 Bifascicular block (principal); R94.31 Abnormal electrocardiogram [ECG] [EKG] | CPT/HCPCS: 93010 ==

== ENCOUNTER 2023-11-02 10:48 | Outpatient (REF) | payer MEDICAID, SELFPAY ==
[2023-11-02 13:42] LABS: Anion Gap 12 (12-20); Blood Urea Nitrogen 18 mg/dL (9-16); Calcium 10.3 mg/dL (8.4-10.2); Carbon Dioxide 31 mmol/L (22-29); Chloride 103 mmol/L (96-108); Estimated Glomerular Filt Rate > 60; Glucose Random 107 mg/dL (60-115); Potassium 3.7 mmol/L (3.3-5.1); Sodium 142 mmol/L (135-145)
[2023-11-02 14:10] LABS: Folate 10.9 ng/mL (> or = 4.0); Vitamin B12 360 pg/mL (200-900)
== END 2023-11-02 10:49 | disposition home or self-care (01) ==
LOC: HO.HHCL 10:48
PROVIDERS: Visit Provider Nurse Practitioner Primary Care
DX: R07.89 Other chest pain (principal); E87.6 Hypokalemia; E83.42 Hypomagnesemia; R20.0 Anesthesia of skin; R20.2 Paresthesia of skin
CPT/HCPCS: 36415; 80048; 82607; 82746; 83735

== ENCOUNTER 2023-11-09 13:54 | Outpatient (AMB) | payer MEDICAID, SELFPAY ==
--- NOTE | 2023-11-09 14:05 | A.OFFVIS_ITS ---
Intake Vital Signs 11/09/23 14:34 Height 5 ft 8 in Weight 200 lb BMI 30.4 BP 148/86 H Blood Pressure Location Lt brachial Position Sitting Respiration 16 Pulse 79 Pulse Source Pulse Oximeter Pulse Oximetry (%) 99 Oxygen Delivery Method Room Air Intake Visit Reasons: BACK PAIN/FIBROMYLAGIA/confirmed Intake Note: Patient comes in for increasing back pain. Reports pain 10/10. Allergies Penicillins [PENICILLINS] Allergy (Unknown, Verified 11/09/23 14:35) SWELLING Penicillins Allergy (Unknown, Uncoded 08/26/23 13:55) Unknown HPI HPI Comments History of Present Illness Details Nii is back in my office with complains on multiple pain generators. He reports that among the pains described below the most bothersome is pain in the knee as well as pain is subcostal areas related to fullness sensation in the stomach. He reports that he will be able to it only couple of crackers to fill early satiety. He also complains on pain in the left knee. He reports that left knee pain is the major pain and seriously affects his mobility. To help the pain in the left knee I offered him to have a diagnostic genicular nerve block. I will be able to offer him radiofrequency ablation once the results of the diagnostic genicular nerve block show any positive results. He said today that he is scheduled for MRI of the lumbar spine, MRI of the thoracic spine, as well as CT scan of the chest. Maybe those advanced diagnostic studies will make sense of his subcostal pain. He is requesting me to prescribe him some pain medication. He did not express any desire to take opioids. He intermittently receives prescriptions of tramadol from primary care physician. Prior: very pleasant 53 years old gentleman who presents in my office with co mplains on widespread all over the body. He reports pain in the bilateral arms bilateral scapula lower back bilateral lower extremities he reports that he cannot sleep normally cannot do activities of daily living cannot take care of himself cannot function normally he is on permanent disability he needs walker for ambulation however he reports that he does not have 1. He reports that movements aggravates his pain and some oral medications make his pain better. The pain is very severe throughout the day he reports his pain 8/10. he reports that he smokes 2 packs of the cigarettes per day since his 9 years old. He denies drinking alcohol he denies recreational drugs. He reports headaches hypertension history of stroke fatigue dizziness and fainting heart palpitation and kidney stones diabetes digestive problems in the arthritis. Denies past surgeries [facility] Medical History (Updated 11/09/23 @ 15:21 by Russell Turner MD) Obesity (BMI 30-39.9) Left arm pain Major depression Decreased vision Anxiety Hypercholesterolemia Essential hypertension Type 2 diabetes mellitus with complication, without long-term current use of insulin Chronic midline low back pain without sciatica ESME (obstructive sleep apnea) Dizziness Review of Systems Const All systems reviewed & are unremarkable except as noted in HPI and below ENT Reports Normal hearing present Neuro Reports Normal hearing present, Denies Abnormal speech present, Denies confusion and Denies Sensory deficit (Neuro) Psych Denies confusion Physical Exam Vital Signs: Last Vital Signs Pulse 79 11/09/23 14:34 Resp 16 11/09/23 14:34 BP 148/86 H 11/09/23 14:34 Pulse Ox 99 11/09/23 14:34 Oxygen Delivery Method Room Air 11/09/23 14:34 BMI result Body Mass Index 30.4 Const General: No confusion Orientation/consciousness: No confusion Eyes General: appearance normal, both eyes and all related structures Pupils: Equal, round and reactive pupils present EOM: EOMs intact bilaterally Neck Neck: Yes full ROM Chest Chest palpation & inspection: normal inspection of the chest Resp Effort & Inspection: normal respiratory effort, able to speak in complete sentences, normal respiratory pattern, no audible wheezes and no cough Cardio Jugular venous distension: no JVD GI Inspection: Yes normal to inspection Neuro General: No confusion Cranial nerves: Yes Equal, round and reactive pupils present and Yes Normal hearing present Speech: No Abnormal speech present Gait exam (Neuro): Normal gait present Motor exam (neuro): 5/5 motor strength present throughout Sensory Exam: No Sensory deficit (Neuro) Extrem General: No pedal edema Psych Speech and movement: Normal speech and movement present Affect: normal affect Attitude: cooperative Thought process: Normal thought process present Thought content: Normal thought content present Insight: Good insight present (Psych) Judgement: Good judgement present (Psych) Assessment & Plan Assessment & Plan (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 Fibromyalgia cannot be excluded either. He reports that he is losing weight, he reports early satiety. He reports subcostal pain bilaterally. He reports that gabapentin the dose of which I increased to 600 mg does not help his pain. He reports the tizanidine does not help his pain. I will stop tizanidine. I will start him on methocarbamol 500 mg t.i.d. The subcostal pain syndrome with early satiety maybe bothersome symptom especially when it is affiliated with the weight loss. He is appropriately scheduled for chest CT, however abdominal CT scan might be also needed with intravenous and oral contrast to put possibility of the intra-abdominal formations to rest. To help his pain in the left knee I offered him and I will perform diagnostic genicular nerve block. Radiofrequency ablation of the left genicular nerves will be a possibility to treat this pain. Medications: New methocarbamol 500 mg PO TID PRN 90 tabs 0RF muscle spasticity 30 days Discontinued cyclobenzaprine Discontinued Reason: Doctor's Order 10 mg PO TID PRN 20 tabs 0RF muscle spasm tizanidine Discontinued Reason: Doctor's Order 4 mg PO Q8H PRN 90 tabs 0RF muscle spasticity 3 days Coding Level of Care Code Est Pt Level 3 (99596) Diagnoses Diabetic arthropathy E11.618 Smoking addiction F17.200 Chronic pain syndrome G89.4 Fibromyalgia M79.7 Left knee pain M25.562 Arthritis of left knee M17.12
[2023-11-09 14:34] VITALS: BP 148/86; PULSE 79; RESP 16; O2SAT 99; BMI 30.4
== END 2023-11-09 15:00 | disposition home or self-care (01) ==
PROVIDERS: PCP Nurse Practitioner Primary Care; Referring Provider Student in an Organized Health Care Education/Training Program; Visit Provider Anesthesiology
DX: E11.618 Type 2 diabetes mellitus with other diabetic arthropathy (principal); F17.200 Nicotine dependence, unspecified, uncomplicated; G89.4 Chronic pain syndrome; M79.7 Fibromyalgia; M25.562 Pain in left knee; M17.12 Unilateral primary osteoarthritis, left knee
CPT/HCPCS: 99213

== ENCOUNTER → 2023-11-09 13:54 | Outpatient (BNVA) | payer MEDICAID, SELFPAY | PROVIDERS: PCP Nurse Practitioner Primary Care; Referring Provider Student in an Organized Health Care Education/Training Program; Visit Provider Anesthesiology | DX: E11.618 Type 2 diabetes mellitus with other diabetic arthropathy (principal); M79.7 Fibromyalgia; M25.562 Pain in left knee; M17.12 Unilateral primary osteoarthritis, left knee; G89.4 Chronic pain syndrome; F17.200 Nicotine dependence, unspecified, uncomplicated | CPT/HCPCS: 99212 ==

== ENCOUNTER 2023-11-24 14:11 | Outpatient (REF) | payer MEDICAID, SELFPAY ==
--- NOTE | ~2023-11-24 | MR_ITS ---
EXAMINATION: MR THORACIC SPINE WITHOUT CONTRAST CLINICAL INFORMATION: Chronic leg weakness. Lower back pain. Left-sided sciatica. COMPARISON: CT abdomen and pelvis from 01/27/2023. TECHNIQUE: MRI of the thoracic spine was obtained using routine sequences without contrast. FINDINGS: Normal anatomic alignment. Moderate degenerative disc disease at T7 T8-T8 9. Mild degenerative disc disease at all additional levels. Associated mild mixed Modic type discogenic and plate changes. Small lipid rich hemangioma within the T10 vertebral body. No suspicious marrow edema. The vertebral body heights are maintained. No demonstrated spinal cord signal abnormalities. No significant abnormalities of the paraspinal musculature. There is a 2.4 cm T2 hyperintense nodule in the right thyroid lobe. Chronic partial atrophy of the left kidney with moderate caliectasis. Otherwise, limited evaluation of the intrathoracic structures without significant abnormalities. The descending thoracic aorta is of normal contour and caliber. AXIAL SPINAL LEVELS: Partially visualized disc-osteophyte complex formation at C6-C7. Small posterior disc herniations at T7-T8 and T8-T9. There is mild to moderate multilevel facet joint arthropathy, centered within the lower thoracic spine. There are mild neural foraminal stenoses from T9-T12. There is no additional neural foraminal stenosis. Mild prominence of the dorsal epidural lipomatous tissue from T3-T9, partially effacing the thoracic thecal sac. There is no overt spinal canal stenosis. MR/MR thoracic spine wo con IMPRESSION: 1. Mild to moderate multilevel degenerative spondyloarthropathy of the thoracic spine as described in detail above. Most notably, there are mild neural foraminal stenoses from T9-T12. No overt spinal canal stenosis. 2. There is a 2.4 cm nodule in the right thyroid lobe. Recommend further characterization with thyroid ultrasound. 3. Chronic partial atrophy of the left kidney with moderate caliectasis.
== END 2023-11-24 14:12 | disposition home or self-care (01) ==
LOC: HO.MRI 14:11
PROVIDERS: PCP Nurse Practitioner Primary Care; Visit Provider Nurse Practitioner Primary Care
DX: M54.42 Lumbago with sciatica, left side (principal); G89.29 Other chronic pain
CPT/HCPCS: 72146

== ENCOUNTER 2023-12-23 19:51 | Emergency (ER) | payer MEDICAID, SELFPAY ==
--- NOTE | 2023-12-23 | ECG_ITS ---
Test Reason : CHEST PAIN Blood Pressure : / mmHG Vent. Rate : 071 BPM Atrial Rate : 071 BPM P-R Int : 156 ms QRS Dur : 136 ms QT Int : 430 ms P-R-T Axes : 088 -61 086 degrees QTc Int : 467 ms Normal sinus rhythm Right bundle branch block Left anterior fascicular block Bifascicular block Left ventricular hypertrophy with repolarization abnormality ( R in aVL ) Abnormal ECG When compared with ECG of 30-OCT-2023 12:13, Inverted T waves have replaced nonspecific T wave abnormality in Lateral leads Referred By: Generic ED Physician Electronically Signed By:RAFFAELE LAGUNAS
--- NOTE | ~2023-12-23 | XR_ITS ---
EXAMINATION: XR CHEST CLINICAL INFORMATION: Left-sided chest pain COMPARISON: Chest radiograph 08/26/2023 TECHNIQUE: 2 views of the chest were obtained. FINDINGS: No significant abnormality is noted involving the heart, lungs, mediastinum, bony thorax or soft tissues. XR/XR chest 2V IMPRESSION: Unremarkable examination.
--- NOTE | ~2023-12-23 | CT_ITS ---
EXAMINATION: CT ABDOMEN AND PELVIS WITH CONTRAST CLINICAL INFORMATION: Left-sided abdominal pain. COMPARISON: 01/19/2023 TECHNIQUE: Multidetector volumetric images were obtained from the superior aspect of the liver through the pubic symphysis following administration 85 mL of Omnipaque 350 intravenous contrast. Sagittal and coronal reformatted images were obtained on the technologist's workstation. Oral contrast: No This CT examination was performed using dose optimization techniques as appropriate, variously including the following: *Automated exposure control *Adjustment of mA and/or kV according to patient size (this includes techniques or standardized protocols for targeted exams where dose is matched to indication/reason for exam; i.e. extremities or head) *Use of iterative reconstruction technique DLP: 820 mGy-cm FINDINGS: LUNG BASES: Mild dependent atelectasis. LIVER, GALLBLADDER, AND BILIARY TREE: The liver is normal in size, shape, and attenuation. No focal hepatic lesion or biliary ductal dilatation is present. The gallbladder is unremarkable with no evidence of radiopaque gallstones, gallbladder wall thickening, or obvious pericholecystic inflammatory changes. PANCREAS: Unremarkable. SPLEEN: Unremarkable. ADRENAL GLANDS: Unremarkable. KIDNEYS AND URETERS: There is moderate chronic. Left hydronephrosis and mild proximal hydroureter. Multiple calyceal diverticula are suspected at the renal parenchyma. Mild generalized atrophy of the left kidney is unchanged as compared to prior. No appreciable causes of left-sided hydroureter identified. The transition point occurs in the region of the left mid ureter where crosses the left psoas muscle. No nephrolithiasis or ureterolithiasis. Right kidney is normal in appearance without hydronephrosis or hydroureter. BLADDER: Mild bladder wall thickening. No bladder calcifications. GASTROINTESTINAL TRACT: Stomach, small bowel, and colon are normal in caliber. No bowel wall thickening or surrounding inflammatory changes. Appendix is normal. No intraperitoneal free fluid or free air. ABDOMINAL WALL: Status post ventral abdominal hernia repair with a mesh. There is a defect in the left posterolateral abdominal wall along the inferior costal margin, potentially related to prior surgery. LYMPH NODES: Normal. VASCULAR: Calcific atherosclerosis is present in the abdominal aorta and iliac arteries. No aneurysmal dilatation. PELVIC VISCERA: Central dystrophic calcifications are present at the prostate gland. Prostate gland is borderline enlarged. OSSEOUS STRUCTURES: [id number] degenerative disc disease at L5-S1. Mild osteophytes in both hips. No acute osseous findings. CT/CT abdomen pelvis w IV con IMPRESSION: 1. No acute intra-abdominal or intrapelvic abnormalities are identified. 2. Moderate left hydronephrosis and mild left proximal hydroureter with a transition point in the region of the left mid ureter. A clear cause is not identified on these images, though the appearance of the hydronephrosis appears chronic. No nephrolithiasis or ureterolithiasis. Mild generalized atrophy of the left kidney is unchanged. 3. Mild bladder wall thickening. Consider correlation with urinalysis to exclude cystitis. 4. Borderline prostatomegaly.
[2023-12-23 20:04] VITALS: BP 160/96; BP 190/95; PULSE 74; PULSE 80; RESP 16; TEMP 36.7; O2SAT 98; BMI 28.3
[2023-12-23 20:57] LABS: MANUAL DIFF FLAG NO
[2023-12-23 20:58] LABS: Basophils Percent Auto 0.5 % (0-2); Eosinophils Absolute Auto 0.1 X10*3/uL (0.0-0.4); Eosinophils Percent Auto 1.5 % (0-4); Hematocrit 41.1 % (42.0-52.0); Hemoglobin 14.7 g/dl (14.0-18.0); Imm Gran Abs Auto 0.02 X10*3/uL (0.00-0.03); Imm Gran Pct Auto 0.2 % (0.0-0.4); Lymphocytes Absolute Auto 1.7 X10*3/uL (1.2-4.9); Lymphocytes Percent Auto 19.4 % (20-40); Mean Corpuscular HGB Conc 35.8 g/dl (31.0-36.0); Mean Corpuscular Hemoglobin 30.9 pg (27.0-33.0); Mean Corpuscular Volume 86.5 fL (80.0-98.0); Mean Platelet Volume 10.5 fL (9.4-12.4); Monocytes Absolute Auto 0.7 X10*3/uL (0.1-1.2); Monocytes Percent Auto 7.6 % (2-11); Neutrophils Absolute Auto 6.1 x10*3/uL (2.0-8.3); Neutrophils Percent Auto 70.8 % (45-73); Platelet Count 194 X10*3/uL (160-400); Red Blood Count 4.75 X10*6/uL (4.60-5.80); Red Cell Distribution Width 12.7 % (11.0-16.0); White Blood Count 8.6 X10*3/uL (4.8-10.8)
[2023-12-23 21:11] LABS: Alanine Aminotransferase 5 U/L (0-40); Albumin Level 3.9 g/dL (3.5-5.0); Alkaline Phosphatase 60 U/L (39-117); Anion Gap 12 (12-20); Aspartate Amino Transferase 9 U/L (5-37); Bilirubin Total 0.9 mg/dL (0.0-1.0); Blood Urea Nitrogen 12 mg/dL (9-16); Calcium 9.6 mg/dL (8.4-10.2); Carbon Dioxide 30 mmol/L (22-29); Chloride 104 mmol/L (96-108); Creatinine Clr Calc Pharmacy 106.3; Estimated Glomerular Filt Rate > 60; Glucose Random 115 mg/dL (60-115); Lipase 13 U/L (8-78); Potassium 3.7 mmol/L (3.3-5.1); Sodium 142 mmol/L (135-145); Total Protein 6.8 g/dL (6.5-8.0)
--- NOTE | 2023-12-23 21:31 | ED.GENADULT ---
HPI - General Adult General Chief complaint: Abdominal Pain Stated complaint: CHEST PAIN, FLANK PAIN Time Seen by Provider: 12/23/23 21:24 History of Present Illness HPI narrative: The patient is a 53-year-old male with a history of 3 umbilical surgeries and an appendectomy. He also says that he had kidney surgery as a child and several years ago needed a left ureteral stent when he was at a hospital in [facility]. Recently the patient has had problems with pain across his abdomen. This has been going on for a few weeks. He says that he was recently seen at the emergency room at [facility]. He was told that he had gallstones and he has an appointment this week with a surgeon at this hospital regarding his gallbladder. He came to the hospital by ambulance this evening because of severe pain in his abdomen that seems to be mostly on the left side and which he says has been going on for several days. He does not know if he has had a fever. He has had no vomiting. Related Data Home Medications Medication Instructions Recorded Confirmed albuterol sulfate 90 mcg/actuation 2 puff inhalation Q4-6H PRN 07/28/23 07/31/23 aerosol inhaler (Ventolin HFA) amlodipine 10 mg tablet 10 mg PO DAILY 07/28/23 07/31/23 aripiprazole 10 mg tablet 10 mg PO QAM 07/28/23 07/31/23 ascorbic acid (vitamin C) 500 mg 1,000 mg PO DAILY 07/28/23 07/31/23 tablet (Vitamin C) aspirin 81 mg tablet,delayed 81 mg PO DAILY 07/28/23 07/31/23 release atorvastatin 80 mg tablet 80 mg PO DAILY 07/28/23 07/31/23 blood sugar diagnostic (FreeStyle #10 ea 07/28/23 07/31/23 Lite Strips) bupropion HCl 150 mg 24 hr tablet, 150 mg PO QAM 07/28/23 07/31/23 extended release calcium carbonate 500 mg-vitamin 1 tab PO DAILY 07/28/23 07/31/23 D3 10 mcg (400 unit) tablet (Oyster Shell Calcium-Vitamin D3) carvedilol 3.125 mg tablet 3.125 mg PO BID 07/28/23 07/31/23 clotrimazole 1 % topical cream appl topical BID 07/28/23 07/31/23 dulaglutide 0.75 mg/0.5 mL mg subcut QWEEK 07/28/23 07/31/23 subcutaneous pen injector (Trulicity) empagliflozin 10 mg tablet 10 mg PO QAM 07/28/23 07/31/23 (Jardiance) enalapril maleate 20 mg tablet 20 mg PO QAM 07/28/23 07/31/23 famotidine 20 mg tablet 20 mg PO BID 07/28/23 07/31/23 fluconazole 150 mg tablet mg PO 07/28/23 07/31/23 glipizide 10 mg tablet 10 mg PO 07/28/23 07/31/23 hydroxyzine HCl 25 mg tablet 25 mg PO BEDTIME 07/28/23 07/31/23 ibuprofen 800 mg tablet 800 mg PO TID 07/28/23 07/31/23 lancets 33 gauge (Easy Touch Twist #100 ea 07/28/23 07/31/23 Lancets) meloxicam 15 mg tablet 15 mg PO DAILY PRN pain 07/28/23 07/31/23 nicotine (polacrilex) 2 mg gum 2 mg PO Q2H PRN 07/28/23 07/31/23 nicotine 14 mg/24 hr daily 1 patch topical DAILY 07/28/23 07/31/23 transdermal patch nicotine 7 mg/24 hr daily transdermal 07/28/23 07/31/23 transdermal patch sildenafil 100 mg tablet (Viagra) 100 mg PO DAILY PRN 07/28/23 07/31/23 sulfamethoxazole 800 1 tab PO BID 07/28/23 07/31/23 mg-trimethoprim 160 mg tablet tramadol 50 mg tablet 50 mg PO Q6H PRN severe pain 07/28/23 07/31/23 trazodone 100 mg tablet 200 mg PO BEDTIME 07/28/23 07/31/23 vitamin B complex (B 1 tab PO DAILY 07/28/23 07/31/23 Complex-Vitamin B12 tablet) Previous Rx's Medication Instructions Recorded acetaminophen 500 mg tablet 500 mg PO Q6H PRN pain #20 tabs 01/27/23 lidocaine 5 % topical patch 1 patch topical DAILY PRN pain #15 01/27/23 ea gabapentin 600 mg tablet 600 mg PO TID 30 days #90 tabs 07/31/23 lidocaine 5 % topical patch 1 patch topical DAILY #15 ea 10/30/23 methocarbamol 500 mg tablet 500 mg PO TID PRN muscle 11/09/23 spasticity 30 days #90 tabs ibuprofen 600 mg tablet 600 mg PO Q6H PRN pain #14 tabs 12/24/23 morphine 15 mg immediate release 15 mg PO Q6H PRN pain #14 tabs 12/24/23 tablet Allergies Allergy/AdvReac Type Severity Reaction Status Date / Time Penicillins [PENICILLINS] Allergy Unknown SWELLING Verified 11/09/23 14:35 Penicillins Allergy Unknown Unknown Uncoded 08/26/23 13:55 Review of Systems Review of Systems: Yes all other systems are reviewed and are negative [facility] Past Medical History Medical History (Updated 12/24/23 @ 00:31 by Dixon Santiago MD) Obesity (BMI 30-39.9) Left arm pain Major depression Decreased vision Anxiety Hypercholesterolemia Essential hypertension Type 2 diabetes mellitus with complication, without long-term current use of insulin Chronic midline low back pain without sciatica ESME (obstructive sleep apnea) Dizziness Social History Social History Smoked in Last 30 Days: Yes Use of substances other than those prescribed or required for medical reasons: No Advance Directives: No Advance Directives Information Provided: No Physical Exam ED Vital Signs: Vital Signs - 24 hr 12/23/23 20:04 12/23/23 22:06 12/24/23 00:02 Temperature 98.0 F 98.2 F Pulse Rate 74 78 81 Respiratory Rate 16 18 16 Blood Pressure 160/96 H 157/97 H 165/99 H Pulse Oximetry 98 98 97 Oxygen Delivery Method Room Air Room Air Room Air 12/24/23 01:00 Temperature 98.1 F Pulse Rate 81 Respiratory Rate 16 Blood Pressure 165/99 H Pulse Oximetry 97 Oxygen Delivery Method Room Air BMI result Body Mass Index 28.3 Const Other: The patient is a 53-year-old male who was awake and alert. He was holding his right hand across his torso as if he was holding onto his left side because of left sided discomfort. He looked uncomfortable. He did not seem in respiratory distress. HENMT Other: Face is symmetrical. Mucous membranes moist. Eyes Other: Pupils are round equal, conjunctivae clear Neck Other: No JVD Resp Other: Lungs are clear bilaterally. No increased work of breathing. No crepitus or subcutaneous emphysema GI Other: The patient has an old surgical scar just above the umbilicus. The patient seems to have diffuse abdominal tenderness more on the left than the right. Back/Spine/Pelvis Other: The patient does not seem to have obvious CVA tenderness on either side with percussion. Skin Other: Skin is dry and unremarkable Neuro Other: The patient is awake and alert with a normal mental status. Cranial nerves are grossly intact. He moves his extremities symmetrically. He seems grossly neurologically intact. Extrem Other: No peripheral edema. Medications Administered Discontinued Medications Generic Name Dose Route Start Last Admin Trade Name Sarah PRN Reason Stop Dose Admin Promethazine HCl 12.5 mg/ 50.5 mls @ 202 mls/hr 12/23/23 21:38 12/23/23 22:15 Sodium Chloride IV 12/23/23 21:39 Infused ONCE ONE Infusion Sodium Chloride 1,000 mls @ 999 mls/hr 12/23/23 21:45 12/23/23 23:00 Ns IV 12/23/23 22:45 Infused .Q1H1M DAISHA Infusion Iohexol 85 ml 12/23/23 23:15 12/23/23 23:16 Iohexol 350 Mg/Ml 100 Ml Infus..Btl IV 12/23/23 23:16 85 ml ONCE ONE Administration Ketorolac Tromethamine 15 mg 12/24/23 00:29 12/24/23 00:36 Ketorolac Tromethamine 15 Mg/Ml Vial IVPUSH 12/24/23 00:30 15 mg ONCE ONE Administration Morphine Sulfate 4 mg 12/23/23 21:38 12/23/23 21:57 Morphine Sulfate 4 Mg/Ml Cartridge IVPUSH 12/23/23 21:39 4 mg ONCE ONE Administration Protocol Medical Decision Making Medical Decision Making [facility] Narrative: The patient is a 53-year-old male with a history of left kidney problems since he was 5 years old. He has also had an appendectomy. He has had a lot of abdominal pain in the last several weeks. He was seen at the emergency room at [facility] 1 month ago for similar symptoms and was discharged from the emergency room. At that time he had a CT scan that showed gallstones but no definite acute findings. The patient is a very vague historian which complicates his evaluation but my impression is that he has been having left-sided pain primarily. A CT scan today shows left-sided hydronephrosis and mild left proximal hydroureter with a transition point in the region of the left mid ureter. I obtained the report of the patient's CT scan from [facility] last month. The [facility] CT says that there was no hydronephrosis on either side. Additionally I reviewed images from a CT scan at this hospital done almost 1 year ago in December of 2022. The images from the 2022 CT scan do not show the hydronephrosis present on today's scan. Although the radiology reading imply that the patient has hydroureter and hydronephrosis appear chronic the previous CT scans did not seem to confirm this. The patient's workup was otherwise very benign. He has not septic or acutely ill otherwise. I think his left-sided pain is likely related to his left kidney and ureter. I consulted with the on-call urologist who felt this could be managed as an outpatient. This seems reasonable to me. The patient will be discharged with pain medications and was given the follow-up information for contacting Urology. Lab Data 12/23/23 20:52 12/23/23 20:52 Labs: Lab Results 12/23/23 12/23/23 Range/Units 20:52 21:57 WBC 8.6 (4.8-10.8) X10*3/uL RBC 4.75 (4.60-5.80) X10*6/uL Hgb 14.7 (14.0-18.0) g/dl Hct 41.1 L (42.0-52.0) % MCV 86.5 (80.0-98.0) fL MCH 30.9 (27.0-33.0) pg MCHC 35.8 (31.0-36.0) g/dl RDW 12.7 (11.0-16.0) % Plt Count 194 (160-400) X10*3/uL MPV 10.5 (9.4-12.4) fL Immature Gran % (Auto) 0.2 (0.0-0.4) % Neut % (Auto) 70.8 (45-73) % Lymph % (Auto) 19.4 L (20-40) % [place] % (Auto) 7.6 (2-11) % Eos % (Auto) 1.5 (0-4) % Baso % (Auto) 0.5 (0-2) % Lymph # (Auto) 1.7 (1.2-4.9) X10*3/uL [place] # (Auto) 0.7 (0.1-1.2) X10*3/uL Eos # (Auto) 0.1 (0.0-0.4) X10*3/uL Baso # (Auto) 0.0 (0.0-0.2) X10*3/uL Abs Immat Gran (auto) 0.02 (0.00-0.03) X10*3/uL Absolute Neuts (auto) 6.1 (2.0-8.3) x10*3/uL Absolute Nucleated RBC 0.000 (0.0-0.012) X10*3/uL Nucleated RBC % (auto) 0.0 (0.0-0.2) /100WBC Sodium 142 (135-145) mmol/L Potassium 3.7 (3.3-5.1) mmol/L Chloride 104 (96-108) mmol/L Carbon Dioxide 30 H (22-29) mmol/L Anion Gap 12 (12-20) BUN 12 (9-16) mg/dL Creatinine 0.85 (0.5-1.4) mg/dL Estim Creat Clear Calc 106.3 Estimated GFR > 60 Random Glucose 115 (60-115) mg/dL Calcium 9.6 D (8.4-10.2) mg/dL Magnesium 1.8 (1.6-2.6) mg/dL Total Bilirubin 0.9 (0.0-1.0) mg/dL AST 9 (5-37) U/L ALT 5 (0-40) U/L Alkaline Phosphatase 60 (39-117) U/L Troponin I High Sens 12.0 (<3.5-35.0) ng/L C-Reactive Protein 0.26 (< or = 0.50) mg/dL Total Protein 6.8 (6.5-8.0) g/dL Albumin 3.9 (3.5-5.0) g/dL Lipase 13 (8-78) U/L Urine Color Yellow Urine Appearance Clear Urine pH 5.5 (5.0-9.0) Ur Specific [place] 1.025 (1.005-1.025) Urine Protein Trace (Neg-Trace) mg/dL Urine Glucose (UA) Negative (Negative) mg/dL Urine Ketones Negative (Negative) mg/dL Urine Blood Negative (Negative) Urine Nitrite Negative (Negative) Ur Leukocyte Esterase Negative (Negative) Independent Interpretation I performed an independent interpretation of an: EKG Interpretation: EKG at 20:08 shows normal sinus rhythm at 71 beats per minute. There is a right bundle branch block and left anterior fascicular block. Overall no remarkable changes from previous. Discharge Plan Discharge Clinical Impression: Left sided abdominal pain, Hydronephrosis, left Patient Disposition: Home, Self-Care Additional Instructions: I think your pain is primarily related to a problem with your left kidney. Your CT scan today shows backup of the urine on the left side. This is called hydronephrosis. I have given your name and information to the urology office. Please contact the office on Monday for a prompt follow-up appointment. I have sent a prescription for ibuprofen and also a prescription for morphine tablets which you may use for pain until you follow up with the urologist (Dr. Crum's office). I think it is less likely that your gallstones are the reason you are having all this pain. Nevertheless I would keep the appointment with the general surgeon. Also stay in touch with your regular doctor. Return to the emergency room if significantly worse. Prescriptions: New morphine 15 mg tablet 15 mg PO Q6H PRN (Reason: pain) Qty: 14 0RF Rx Instructions: Partial Fill upon patient request. ibuprofen 600 mg tablet 600 mg PO Q6H PRN (Reason: pain) Qty: 14 0RF No Action acetaminophen 500 mg tablet 500 mg PO Q6H PRN (Reason: pain) Qty: 20 0RF lidocaine 5 % adhesive patch,medicated 1 patch topical DAILY PRN (Reason: pain) Qty: 15 0RF Rx Instructions: leave on most painful area for up to 12 hrs lidocaine 5 % adhesive patch,medicated 1 patch topical DAILY Qty: 15 0RF Rx Instructions: leave on most painful area for up to 12 hrs nicotine 7 mg/24 hr patch 24 hour transdermal nicotine (polacrilex) 2 mg gum 2 mg PO Q2H PRN nicotine 14 mg/24 hr patch 24 hour 1 patch topical DAILY Trulicity 0.75 mg/0.5 mL pen injector subcut QWEEK clotrimazole 1 % cream topical BID calcium carbonate-vitamin D3 [Oyster Shell Calcium-Vit D3] 500 mg-10 mcg (400 unit) tablet 1 tab PO DAILY vitamin B complex [B Complex-Vitamin B12] Tablet 1 tab PO DAILY ascorbic acid (vitamin C) [Vitamin C] 500 mg tablet 1,000 mg PO DAILY sulfamethoxazole-trimethoprim 800-160 mg tablet 1 tab PO BID Jardiance 10 mg tablet 10 mg PO QAM (DME) lancets [Easy Touch Twist Lancets] 33 gauge misc See Rx Instructions .ROUTE BID Qty: 100 Rx Instructions: As directed bupropion HCl 150 mg tablet extended release 24 hr 150 mg PO QAM aripiprazole 10 mg tablet 10 mg PO QAM hydroxyzine HCl 25 mg tablet 25 mg PO BEDTIME albuterol sulfate [Ventolin HFA] 90 mcg/actuation HFA aerosol inhaler 2 puff inhalation Q4-6H PRN amlodipine 10 mg tablet 10 mg PO DAILY trazodone 100 mg tablet 200 mg PO BEDTIME aspirin 81 mg tablet,delayed release (DR/EC) 81 mg PO DAILY (DME) FreeStyle Lite Strips Strip See Rx Instructions .ROUTE BID Qty: 10 Rx Instructions: As directed glipizide 10 mg tablet 10 mg PO enalapril maleate 20 mg tablet 20 mg PO QAM fluconazole 150 mg tablet PO ibuprofen 800 mg tablet 800 mg PO TID atorvastatin 80 mg tablet 80 mg PO DAILY sildenafil [Viagra] 100 mg tablet 100 mg PO DAILY PRN famotidine 20 mg tablet 20 mg PO BID meloxicam 15 mg tablet 15 mg PO DAILY PRN (Reason: pain) tramadol 50 mg tablet 50 mg PO Q6H PRN (Reason: severe pain) carvedilol 3.125 mg tablet 3.125 mg PO BID gabapentin 600 mg tablet 600 mg PO TID 30 Days Qty: 90 8RF methocarbamol 500 mg tablet 500 mg PO TID PRN (Reason: muscle spasticity) 30 Days Qty: 90 0RF Referrals: Rahat Crum MD [Physician] - (Left-sided hydronephrosis) Interventions: ED Discharge Assessment Last Done: 12/24/23 01:00 Discharge Date/Time: 12/24/23 01:20
[2023-12-23 21:50] LABS: C Reactive Protein 0.26 mg/dL (< or = 0.50); Magnesium 1.8 mg/dL (1.6-2.6)
[2023-12-23] MEDS: Morphine Sulfate 4 MG/ML CARTRIDGE IVPUSH (21:57)
[2023-12-23] MEDS: 0.9 % Sodium Chloride 1,000 ML 999 ML IV (21:58)
[2023-12-23 22:06] VITALS: BP 157/97; PULSE 78; RESP 18; TEMP 36.8; O2SAT 98
[2023-12-23 22:07] LABS: Appearance Urine Clear; Color Urine Yellow; Glucose Urine UA Negative (Negative); Leukocyte Esterase Urine Negative (Negative); Nitrite Urine Negative (Negative); PH 5.5 (5.0-9.0); Specific Gravity - Urine 1.025 (1.005-1.025); Urine Blood Negative (Negative); Urine Ketones Negative (Negative); Urine Protein Trace mg/dL (Neg-Trace)
--- NOTE | 2023-12-23 22:30 | PC.NURSE ---
pt assisted to rest room stand by assist. pt repositioned back to stretcher. urine sample obtained and sent to lab pt medicated according to mar
[2023-12-23] MEDS: iohexoL 350 MG/ML 100 ML INFUS..BTL 85 ML IV (23:16)
[2023-12-24 00:02] VITALS: BP 165/99; PULSE 81; RESP 16; O2SAT 97
[2023-12-24] MEDS: Ketorolac Tromethamine 15 MG/ML VIAL IVPUSH (00:36)
--- NOTE | 2023-12-24 00:46 | PC.NURSE ---
pt medicated according to mar for continued 04/10 pain. pt pending discharge
[2023-12-24 01:00] VITALS: BP 165/99; PULSE 81; RESP 16; TEMP 36.7; O2SAT 97
== END 2023-12-24 01:20 | disposition home or self-care (01) ==
PROVIDERS: Emergency Provider Emergency Medicine; PCP Nurse Practitioner Primary Care
DX: R07.89 Other chest pain (principal); N13.30 Unspecified hydronephrosis; R10.9 Unspecified abdominal pain; Z79.899 Other long term (current) drug therapy
CPT/HCPCS: 36415; 71046; 74177; 80053; 81003; 83690; 83735; 84484; 85025; 86140; 93005; 96374; 99284; 99285; J1885; J2270; J2550; Q9967

== ENCOUNTER → 2023-12-23 20:08 | Outpatient (BNV) | payer MEDICAID, SELFPAY | PROVIDERS: Emergency Provider Emergency Medicine; PCP Nurse Practitioner Primary Care; Visit Provider Internal Medicine | DX: R07.9 Chest pain, unspecified (principal) | CPT/HCPCS: 93010 ==

== ENCOUNTER 2023-12-28 14:15 | Outpatient (AMB) | payer MEDICAID, SELFPAY ==
--- NOTE | 2023-12-28 14:29 | A.OFFVIS_ITS ---
Intake Vital Signs 12/28/23 14:39 Height 5 ft 8 in Weight 178 lb BMI 27.1 BP 191/100 H Blood Pressure Location Lt brachial Position Sitting Pulse 74 Intake Visit Reasons: cholelithiasis Intake Note: Patient is seen in office for evaluation and treatment of the gallbladder. 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 Accompanied by: Self / Same As Patient Allergies Penicillins [PENICILLINS] Allergy (Unknown, Verified 12/28/23 14:37) SWELLING Penicillins Allergy (Unknown, Uncoded 12/28/23 14:37) Unknown Medication List - Last Reconciled 12/28/23 by Gerry Urbina MD acetaminophen 500 mg PO Q6H PRN albuterol sulfate 90 mcg/actuation (Ventolin HFA) 2 puffs inhalation Q4-6H PRN amlodipine 10 mg PO DAILY aripiprazole 10 mg PO QAM ascorbic acid (vitamin C) (Vitamin C) 1,000 mg PO DAILY aspirin 81 mg PO DAILY atorvastatin 80 mg PO DAILY blood sugar diagnostic (FreeStyle Lite Strips) As directed bupropion HCl 150 mg PO QAM calcium carbonate-vitamin D3 500 mg-10 mcg (400 unit) (Oyster Shell Calcium- Vitamin D3) 1 tab PO DAILY carvedilol 3.125 mg PO BID clotrimazole 1% appl topical BID dulaglutide (Trulicity) mg subcut QWEEK empagliflozin (Jardiance) 10 mg PO QAM enalapril maleate 20 mg PO QAM famotidine 20 mg PO BID fluconazole mg PO gabapentin 600 mg PO TID 30 days glipizide 10 mg PO hydroxyzine HCl 25 mg PO BEDTIME ibuprofen 600 mg PO Q6H PRN ibuprofen 800 mg PO TID lancets (Easy Touch Twist Lancets) As directed lidocaine 5% 1 patch topical DAILY PRN lidocaine 5% 1 patch topical DAILY meloxicam 15 mg PO DAILY PRN methocarbamol 500 mg PO TID PRN 30 days morphine 15 mg PO Q6H PRN nicotine 1 patch topical DAILY nicotine transdermal nicotine (polacrilex) 2 mg PO Q2H PRN sildenafil (Viagra) 100 mg PO DAILY PRN sulfamethoxazole-trimethoprim 800-160 mg 1 tab PO BID tramadol 50 mg PO Q6H PRN trazodone 200 mg PO BEDTIME vitamin B complex (B Complex-Vitamin B12 tablet) 1 tab PO DAILY HPI HPI Comments History of Present Illness Details 53-year-old male patient presenting with a long history of abdominal pain with associated abdominal distension, nausea, constipation, previously evaluated in the ED at [facility] [facility] and [facility] [place]. Patient was felt to have evidence of gallstones by CT at [facility] [facility] and presents today for possible cholecystectomy. CT abdomen and pelvis performed at [facility] however revealed no gallstones and normal biliary tract however left hydroureter was identified. Patient reports diffuse abdominal pain felt not only in the right upper quadrant, epigastrium but extending over to the left upper quadrant and left flank. He has had 2 previous procedures of the left kidney including a stent placement. He reports the abdominal pain has been persistent for least 1.5 years. [facility] Medical History Obesity (BMI 30-39.9) Left arm pain Major depression Decreased vision Anxiety Hypercholesterolemia Essential hypertension Type 2 diabetes mellitus with complication, without long-term current use of insulin Chronic midline low back pain without sciatica ESME (obstructive sleep apnea) Dizziness Family History Maternal Aunt Cancer of unknown origin Social History Alcohol intake: never Patient Tobacco Use Status: Current everyday Tobacco user Review of Systems Const All systems reviewed & are unremarkable except as noted in HPI and below Denies chills, Denies fever(s), Denies headache(s), Denies poor appetite and Denies weakness ENT Denies headache(s) Card Denies chest pain, Denies irregular heart rhythm, Denies palpitations and Denies dyspnea Resp Denies cough, Denies excessive phlegm production and Denies dyspnea GI Reports abdominal pain, Reports bloating, Denies change in bowel habits, Reports constipation, Denies heartburn, Denies diarrhea, Reports nausea and Denies vomiting Denies difficulty urinating and Denies urinary frequency Musc Denies back pain, Denies muscle weakness and Denies numbness Skin/Breast Denies changing lesions and Denies unusual bruising Neuro Denies headache(s), Denies numbness, Denies paresthesias and Denies weakness Psych Denies anxiety and Denies depression Endo Denies palpitations Vitaliy/Lymph Denies lymphadenopathy Physical Exam Vital Signs: Last Vital Signs Pulse 74 12/28/23 14:39 BP 191/100 H 12/28/23 14:39 BMI result Body Mass Index 27.1 Const General: cooperative and no acute distress Nutritional Appearance: well nourished Orientation/consciousness: patient oriented x3 Limitations: no limitations HEENT Head: Yes normocephalic and Yes atraumatic Ears: hearing grossly normal bilaterally Resp Effort & Inspection: normal respiratory effort, no audible wheezes, no cough and no respiratory distress Cardio Jugular venous distension: no JVD GI Other: Distended, diffusely tender without rebound or guarding. Previous laparoscopic hernia repair, large left flank incision from prior kidney procedure, tender into the left flank and mid back. No hernias identified. Difficult to assess Stubbs sign. Inspection: Yes normal to inspection Skin Other: Warm, dry, no rash Neuro General: patient oriented x3 Extrem General: Yes no clubbing, cyanosis or edema Assessment & Plan Assessment & Plan (1) Abdominal pain: Code(s): R10.9 - Unspecified abdominal pain Qualifiers: Abdominal location: generalized Qualified Code(s): R10.84 - Generalized abdominal pain Plan Patient with a complex presentation with abdominal pain involving multiple quadrants as well as the left flank. He presents today for evaluation of possible gallbladder disease however review of a CT performed here at [facility] on 12/23/2023 reveals a normal-appearing gallbladder without gallstones or ductal dilatation. Of note the patient does have left hydroureter on this exam. I recommended further evaluation with ultrasound of the abdomen to better evaluate the gallbladder for gallstones. I will call him with the results once they are available. I do think he needs to follow up with Urology however for the left hydronephrosis. He expressed understanding and agrees with the plan. Orders: Orders US abdomen complete Today R10.9 - Unspecified abdominal pain Coding Level of Care Code New Pt Level 4 (06569) Diagnoses Generalized abdominal pain R10.84 Abdominal location: generalized
[2023-12-28 14:39] VITALS: BP 191/100; PULSE 74; BMI 27.1
== END 2023-12-28 15:07 | disposition home or self-care (01) ==
PROVIDERS: PCP Nurse Practitioner Primary Care; Referring Provider Nurse Practitioner Primary Care; Visit Provider Surgery
DX: R10.84 Generalized abdominal pain (principal)
CPT/HCPCS: 99203

== ENCOUNTER → 2023-12-28 14:15 | Outpatient (BNVA) | payer MEDICAID, SELFPAY | PROVIDERS: PCP Nurse Practitioner Primary Care; Referring Provider Nurse Practitioner Primary Care; Visit Provider Surgery | DX: R10.84 Generalized abdominal pain (principal) | CPT/HCPCS: 99202 ==

== ENCOUNTER 2024-01-02 07:09 | Outpatient (REF) | payer MEDICAID, SELFPAY | END 2024-01-02 07:10 | disposition home or self-care (01) | LOC: CF 07:09 | PROVIDERS: Visit Provider Anesthesiology | DX: Z13.89 Encounter for screening for other disorder (principal) ==

== ENCOUNTER 2024-01-11 13:11 | Outpatient (REF) | payer MEDICAID, SELFPAY ==
--- NOTE | ~2024-01-11 | CT_ITS ---
EXAMINATION: CT ABDOMEN AND PELVIS WITH CONTRAST CLINICAL INFORMATION: Generalized abdominal pain, abnormal unintentional weight loss COMPARISON: CT scan of abdomen and pelvis on 12/23/2023 TECHNIQUE: Multidetector volumetric images were obtained from the superior aspect of the liver through the pubic symphysis following administration 85 mL of Omnipaque 350 intravenous contrast. Sagittal and coronal reformatted images were obtained on the technologist's workstation. Oral contrast: No This CT examination was performed using dose optimization techniques as appropriate, variously including the following: *Automated exposure control *Adjustment of mA and/or kV according to patient size (this includes techniques or standardized protocols for targeted exams where dose is matched to indication/reason for exam; i.e. extremities or head) *Use of iterative reconstruction technique DLP: 640 mGy-cm FINDINGS: LUNG BASES: Bilateral lung bases are clear. LIVER: No focal lesion is seen in the liver. GALLBLADDER AND BILIARY TREE: Gallbladder appears unremarkable without calcified stones. Common bile duct is not dilated. SPLEEN: The spleen is normal in size without focal lesion. PANCREAS: The pancreas appears unremarkable. ADRENAL GLANDS: Adrenal glands are normal in size without focal lesion bilaterally. KIDNEYS: Right kidney is normal in size with a tiny 0.8 cm simple cyst at posterior mid right renal cortex, mean attenuation of 15 Hounsfield units, for which no follow up imaging is recommended. A 0.4 cm calculus is seen in anterior mid right kidney, compatible with nonobstructive calculus or intrarenal atherosclerotic calcification. Left kidney shows moderate caliectasis and overlying renal cortical thinning, compatible with chronic obstructive uropathy. There is, however, no left renal pelviectasis or hydroureter. BOWELS: There is normal filling of large and small bowel loops with oral contrast all the way down to the descending colon. RETROPERITONEUM: A persistent metallic surgical clip is seen in left medial retroperitoneum just above the left renal artery and vein. No abnormally enlarged retroperitoneal lymph nodes, mass or hematoma could be seen. BLOOD VESSELS: Abdominal aorta is normal in size with scattered atherosclerotic calcifications and smoothly patent. ABDOMINAL WALL: Extensive ventral herniorrhaphy with surgical anchors fixating a surgical mesh is seen. There is persistent midline marked rectus sheath diastases, with protrusion of peritoneal fat, contrast-filled pelvic ileum and mesentery towards the skin surface. PERITONEUM: There was no ascites. There were no abdominal peritoneal inflammatory changes seen. No free peritoneal air was seen. No abnormally enlarged mesenteric lymph nodes are found. BONES: No fracture or dislocation. No focal bone lesion diagnostic of metastatic disease could be seen in the lumbar region. EXAMINATION: CT pelvis. FINDINGS: URINARY BLADDER: Urinary bladder fills normally with urine. BOWELS: There is normal filling of large and small bowel loops with oral contrast all the way down to the rectum. Appendix cannot be identified. GENITAL ORGANS: Seminal vesicles are unremarkable. Prostate gland contains focal calcifications. LYMPH NODES: No abnormally enlarged iliac or inguinal lymph nodes are seen. PERITONEUM: No inflammatory changes, ascites or free peritoneal air are found in the pelvis. BONES: No fracture or dislocation. No focal bone lesion diagnostic of metastatic disease could be seen in the pelvis. CT/CT abdomen pelvis w IV con IMPRESSION: 1. Unchanged status post Extensive ventral herniorrhaphy with surgical anchors fixating a surgical mesh is seen. There is persistent midline marked rectus sheath diastases, with protrusion of peritoneal fat, contrast-filled pelvic ileum and mesentery towards the skin surface. 2. Left kidney shows cyst in moderate caliectasis and overlying renal cortical thinning, compatible with chronic obstructive uropathy. There is, however, no left renal pelviectasis or hydroureter. 3. Unchanged 0.4 cm calculus in anterior mid right kidney, compatible with nonobstructive calculus or intrarenal atherosclerotic calcification. Unchanged posterior mid right renal cortical simple cyst, for which no follow up imaging is recommended. 4. Unchanged metallic surgical clip is seen in left medial retroperitoneum just above the left renal artery and vein. 5. No intestinal or colonic obstruction is seen.
[2024-01-11] MEDS: iohexoL 350 MG/ML 100 ML INFUS..BTL 85 ML IV (16:41)
[2024-01-11] MEDS: Barium Sulfate Oral (Berry) 450 ML ORAL.SUSP 900 ML PO (16:42)
== END 2024-01-11 13:12 | disposition home or self-care (01) ==
LOC: HO.CT 13:11
PROVIDERS: PCP Nurse Practitioner Primary Care; Visit Provider Nurse Practitioner Primary Care
DX: R68.81 Early satiety (principal); R63.4 Abnormal weight loss
CPT/HCPCS: 74177; Q9967

== ENCOUNTER 2024-01-22 15:30 | Outpatient (REF) | payer MEDICAID, SELFPAY ==
--- NOTE | ~2024-01-22 | US_ITS ---
EXAMINATION: US RETROPERITONEAL LIMITED (RENAL ONLY) CLINICAL INFORMATION: Unspecified renal colic. COMPARISON: CT abdomen and pelvis 01/11/2024. X-ray abdomen 01/31/2023. Limited abdominal ultrasound 01/27/2023. Renal ultrasound 06/22/2022. TECHNIQUE: Real-time imaging of the kidneys. FINDINGS: RIGHT KIDNEY: 12.6 x 5.3 x 7.0 cm (SAG x AP x TRV). The kidney is normal in size, contour, and echogenicity. Renal cortical thickness is normal. No renal calculi or hydronephrosis. 0.9 x 0.8 x 0.9 cm simple cyst is seen in the mid to lower pole. No imaging follow-up is recommended. LEFT KIDNEY: 9.7 x 4.8 x 3.9 cm (SAG x AP x TRV). The kidney is normal in size and contour. No renal calculi or hydronephrosis. 1.9 x 1.4 x 1.5 cm partially septated nodule in the mid kidney is seen. No imaging follow-up is recommended. US/US renal BI IMPRESSION: No renal calculi or hydronephrosis.
== END 2024-01-22 15:31 | disposition home or self-care (01) ==
LOC: HO.US 15:30
PROVIDERS: PCP Nurse Practitioner Primary Care; Visit Provider Registered Nurse
DX: N13.30 Unspecified hydronephrosis (principal); N23 Unspecified renal colic
CPT/HCPCS: 76775

== ENCOUNTER 2024-01-30 13:57 | Outpatient (AMB) | payer MEDICAID, SELFPAY ==
--- NOTE | 2024-01-30 14:30 | A.OFFVIS_ITS ---
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 Required: No Accompanied by: Self / Same As Patient Allergies Penicillins [PENICILLINS] Allergy (Unknown, Verified 01/30/24 15:03) SWELLING Penicillins Allergy (Unknown, Uncoded 01/30/24 15:03) Unknown Medication List - Last Reconciled 01/30/24 by RUDDY Archer acetaminophen 500 mg PO Q6H PRN albuterol sulfate 90 mcg/actuation (Ventolin HFA) 2 puffs inhalation Q4-6H PRN amlodipine 10 mg PO DAILY aripiprazole 10 mg PO QAM aspirin 81 mg PO DAILY PRN atorvastatin 80 mg PO DAILY blood sugar diagnostic (FreeStyle Lite Strips) As directed carvedilol 3.125 mg PO BID enalapril maleate 20 mg PO QAM glipizide 10 mg PO ibuprofen 600 mg PO Q6H PRN lancets (Easy Touch Twist Lancets) As directed lidocaine 5% 1 patch topical DAILY meloxicam 15 mg PO DAILY PRN methocarbamol 500 mg PO TID PRN 30 days morphine 15 mg PO Q6H PRN nicotine 1 patch topical DAILY nicotine transdermal nicotine (polacrilex) 2 mg PO Q2H PRN sildenafil (Viagra) 100 mg PO DAILY PRN tramadol 50 mg PO Q6H PRN HPI Comments Details: Nii is a 53-year-old male patient of Dr. Griffin. He has a past medical history of depression, anxiety, hypercholesteremia, hypertension, type 2 diabetes, obstructive sleep apnea, and dizziness. He presents to the office today as a new patient for nephrolithiasis and chronic hydronephrosis. In discussion with the patient today he reports a longstanding history of multiple surgical interventions on his nephrolithiasis. He reports undergoing a surgical procedure at the age of 5 and had had a nephrostomy tube for quite some time. He reports in 2008 he also underwent what sounds like a ureteral stent placement however was incarcerated there after and surgical intervention was required to remove ureteral stent. He is unsure as to what side this was. He discusses at length his unintentional weight loss in ongoing chronic pain has been experiencing over the last year and a half. He currently denies any bothersome urinary issues. However he reports bilateral flank pain left side greater than right. Unable to assess CVA tenderness as patient is tender to the touch upon palpation. In office urinalysis results reviewed with the patient today. Recent CT imaging results and renal ultrasound results reviewed with the patient today. CT 01/11/24 noted left kidney shows cysts and moderate caliectasis and overlying renal cortical thinning, compatible with chronic obstructive uropathy. There is, however, no left renal pelviectasis or hydroureter. Unchanged 0.4 cm calculus in anterior mid right kidney, compatible with nonobstructive calculus or intrarenal atherosclerotic calcification. Unchanged posterior mid right renal cortical simple cyst, for which no follow up imaging is recommended per radiology report. An ultrasound was ordered for further assessment evaluation 01/24/24 that noted bilateral kidneys with no hydronephrosis or renal calculi. There are bilateral renal cyst at require no imaging follow-up per radiology report. Discussed at length potential causes of chronic hydronephrosis given patient's previous history of surgical intervention. Patient continues to report left-sided flank plain as well as left-sided upper quadrant pain. He otherwise denies any bothersome urinary issues. He denies denies urinary urgency, urinary frequency, incontinence, nocturia, hematuria, dysuria, foul smelling urine, changes to urinary stream, flank pain, fever, and or chills. He is happy with his current voiding parameters. In office urinalysis results reviewed with the patient today. [facility] Medical History (Reviewed 01/30/24 @ 15:07 by [facility] Obesity (BMI 30-39.9) Left arm pain Major depression Decreased vision Anxiety Hypercholesterolemia Essential hypertension Type 2 diabetes mellitus with complication, without long-term current use of insulin Chronic midline low back pain without sciatica ESME (obstructive sleep apnea) Dizziness Family History Maternal Aunt Cancer of unknown origin Social History Alcohol intake: never Patient Tobacco Use Status: Current everyday Tobacco user Review of Systems Const Reports as per HPI Eyes Reports no additional complaints ENT Reports no additional complaints Card Reports as per HPI Resp Reports no additional complaints GI Reports no additional complaints Reports as per HPI Musc Reports as per HPI Neuro Reports no additional complaints Psych Reports as per HPI Endo Reports as per HPI Vitaliy/Lymph Reports no additional complaints Aller/Immun Reports no additional complaints Physical Exam Const General: cooperative, comfortable, no acute distress, well developed, alert and awake Orientation/consciousness: patient oriented x3 Limitations: no limitations HEENT Head: Yes normal to inspection, Yes normocephalic and Yes atraumatic Ears: hearing grossly normal bilaterally Eyes General: appearance normal, both eyes and all related structures Neck Neck: Yes normal visual inspection and Yes trachea midline Chest Chest palpation & inspection: normal inspection of the chest Resp Effort & Inspection: normal respiratory effort and able to speak in complete sentences Cardio Rate: regular rate GI Inspection: Yes normal to inspection General: Yes CVA tenderness (left side greater than right ) bilateral Back/Spine/Pelvis Back: CVA tenderness (left side greater than right ) Skin General skin exam: no rashes or lesions noted Neuro General: patient oriented x3 Extrem General: Yes normal to inspection Psych Appearance: grossly normal and well kempt Mental Status: mental status grossly normal Speech and movement: Normal speech and movement present and Clear speech present Affect: normal affect Attitude: cooperative Thought process: Normal thought process present Thought content: Normal thought content present Insight: Fair insight present (Psych) Judgement: Fair judgement present (Psych) Results AMB Urinalysis, Automated UA Leukoctes 0 Katie/uL Last Edit by [employer] on 01/30/24 15:09 UA Nitrite Negative Last Edit by [employer] on 01/30/24 15:09 UA Urobilinogen 0.2 mg/dL Last Edit by [employer] on 01/30/24 15:09 UA Protein 15 mg/dL Last Edit by [employer] on 01/30/24 15:09 UA pH 6.0 Last Edit by [employer] on 01/30/24 15:[address]/uL Last Edit by [employer] on 01/30/24 15:09 UA Specific [place] 1.020 Last Edit by [employer] on 01/30/24 15:09 UA Ketone Negative Last Edit by [employer] on 01/30/24 15:09 UA Bilirubin 0 mg/dL Last Edit by [employer] on 01/30/24 15:09 UA Glucose 0 mg/dL Last Edit by Andrey Tamez on 01/30/24 15:09 Results Reviewed Results Reviewed: Laboratory Last Values Urine pH (Auto) 6.0 01/30/24 14:36 Specific [place] (Auto) 1.020 01/30/24 14:36 Urine Protein (Auto) 15 mg/dL 01/30/24 14:36 Glucose (UA)(Auto) 0 mg/dL 01/30/24 14:36 Urine Ketones (Auto) Negative 01/30/24 14:36 Urine Blood (Auto) 0 Lane/uL 01/30/24 14:36 Urine Nitrite (Auto) Negative 01/30/24 14:36 Urine Bilirubin (Auto) 0 mg/dL 01/30/24 14:36 Urine Urobilinogen (Auto) 0.2 mg/dL 01/30/24 14:36 Leukocyte Esterase (Auto) 0 Katie/uL 01/30/24 14:36 Date of Service: 01/22/24 EXAMINATION: US RETROPERITONEAL LIMITED (RENAL ONLY) FINDINGS: RIGHT KIDNEY: 12.6 x 5.3 x 7.0 cm (SAG x AP x TRV). The kidney is normal in size, contour, and echogenicity. Renal cortical thickness is normal. No renal calculi or hydronephrosis. 0.9 x 0.8 x 0.9 cm simple cyst is seen in the mid to lower pole. No imaging follow-up is recommended. LEFT KIDNEY: 9.7 x 4.8 x 3.9 cm (SAG x AP x TRV). The kidney is normal in size and contour. No renal calculi or hydronephrosis. 1.9 x 1.4 x 1.5 cm partially septated nodule in the mid kidney is seen. No imaging follow-up is recommended. IMPRESSION: No renal calculi or hydronephrosis. Date of Service: 01/11/24 EXAMINATION: CT ABDOMEN AND PELVIS WITH CONTRAST FINDINGS: LUNG BASES: Bilateral lung bases are clear. LIVER: No focal lesion is seen in the liver. GALLBLADDER AND BILIARY TREE: Gallbladder appears unremarkable without calcified stones. Common bile duct is not dilated. SPLEEN: The spleen is normal in size without focal lesion. PANCREAS: The pancreas appears unremarkable. ADRENAL GLANDS: Adrenal glands are normal in size without focal lesion bilaterally. KIDNEYS: Right kidney is normal in size with a tiny 0.8 cm simple cyst at posterior mid right renal cortex, mean attenuation of 15 Hounsfield units, for which no follow up imaging is recommended. A 0.4 cm calculus is seen in anterior mid right kidney, compatible with nonobstructive calculus or intrarenal atherosclerotic calcification. Left kidney shows moderate caliectasis and overlying renal cortical thinning, compatible with chronic obstructive uropathy. There is, however, no left renal pelviectasis or hydroureter. BOWELS: There is normal filling of large and small bowel loops with oral contrast all the way down to the descending colon. RETROPERITONEUM: A persistent metallic surgical clip is seen in left medial retroperitoneum just above the left renal artery and vein. No abnormally enlarged retroperitoneal lymph nodes, mass or hematoma could be seen. BLOOD VESSELS: Abdominal aorta is normal in size with scattered atherosclerotic calcifications and smoothly patent. ABDOMINAL WALL: Extensive ventral herniorrhaphy with surgical anchors fixating a surgical mesh is seen. There is persistent midline marked rectus sheath diastases, with protrusion of peritoneal fat, contrast-filled pelvic ileum and mesentery towards the skin surface. PERITONEUM: There was no ascites. There were no abdominal peritoneal inflammatory changes seen. No free peritoneal air was seen. No abnormally enlarged mesenteric lymph nodes are found. BONES: No fracture or dislocation. No focal bone lesion diagnostic of metastatic disease could be seen in the lumbar region. EXAMINATION: CT pelvis. FINDINGS: URINARY BLADDER: Urinary bladder fills normally with urine. BOWELS: There is normal filling of large and small bowel loops with oral contrast all the way down to the rectum. Appendix cannot be identified. GENITAL ORGANS: Seminal vesicles are unremarkable. Prostate gland contains focal calcifications. LYMPH NODES: No abnormally enlarged iliac or inguinal lymph nodes are seen. PERITONEUM: No inflammatory changes, ascites or free peritoneal air are found in the pelvis. BONES: No fracture or dislocation. No focal bone lesion diagnostic of metastatic disease could be seen in the pelvis. IMPRESSION: 1. Unchanged status post Extensive ventral herniorrhaphy with surgical anchors fixating a surgical mesh is seen. There is persistent midline marked rectus sheath diastases, with protrusion of peritoneal fat, contrast-filled pelvic ileum and mesentery towards the skin surface. 2. Left kidney shows cyst in moderate caliectasis and overlying renal cortical thinning, compatible with chronic obstructive uropathy. There is, however, no left renal pelviectasis or hydroureter. 3. Unchanged 0.4 cm calculus in anterior mid right kidney, compatible with nonobstructive calculus or intrarenal atherosclerotic calcification. Unchanged posterior mid right renal cortical simple cyst, for which no follow up imaging is recommended. 4. Unchanged metallic surgical clip is seen in left medial retroperitoneum just above the left renal artery and vein. 5. No intestinal or colonic obstruction is seen. Assessment & Plan Assessment & Plan (1) Hydronephrosis: Code(s): N13.30 - Unspecified hydronephrosis Category: Medical Plan In office urinalysis results reviewed with the patient today; as noted above. Recent CT results reviewed with the patient today; as noted above. Recent renal ultrasound results reviewed with the patient today; as noted above. Will obtain Lasix renogram for further assessment evaluation. Will obtain BUN and creatinine. Discussed, educated, and stressed the importance of drinking plenty of water daily. Discussed following up with primary care for reported unintentional weight loss. He otherwise denies any bothersome urinary issues. He reports be happy with current voiding parameters. Follow-up in 1-2 months with imaging and labs to be completed prior; or sooner with any issues, concerns, and or questions. Orders: Orders AMB Urinalysis Automated Today Z13.9 - Encounter for screening, unspecified NM renal flow w pharm int Today N13.30 - Unspecified hydronephrosis Blood Urea Nitrogen Today N13.30 - Unspecified hydronephrosis Creatinine Today N13.30 - Unspecified hydronephrosis Medications: Discontinued morphine Partial Fill upon patient request. Discontinued Reason: Patient Completed Course 15 mg PO Q6H PRN 14 tabs 0RF pain ibuprofen Discontinued Reason: Patient Completed Course 600 mg PO Q6H PRN 14 tabs 0RF pain Patient Instructions: The patient had an opportunity to ask questions regarding the treatment plan. All questions were answered. Physical exam, labs, and imaging were discussed and reviewed in detail. As well as risks, benefits, and discussion of treatment choices. No major barriers to understanding were identified. The patient expressed understanding and agreement with the above treatment plan. The patient was made aware they should contact our office by phone for worsening of their current condition, the appearance of new symptoms, or with any questions or concerns. Compliance is encouraged with any medications and follow up testing that is ordered. It is a privilege to be allowed the opportunity to participate in? your urological care.? Again, if you have any questions or concerns If you have any questions or concerns please do not hesitate to contact me. The office is [phone]. This note is constructed using voice recognition software. While every effort has been made to ensure accuracy copier field service technician errors may have been included. Yours sincerely, RUDDY Archer Coding Level of Care Code New Pt Level 3 (81265) Diagnoses Hydronephrosis N13.30
== END 2024-01-30 15:12 | disposition home or self-care (01) ==
PROVIDERS: PCP Nurse Practitioner Primary Care; Visit Provider Nurse Practitioner Family
DX: N13.30 Unspecified hydronephrosis (principal); Z13.9 Encounter for screening, unspecified
CPT/HCPCS: 99203

== ENCOUNTER → 2024-01-30 13:57 | Outpatient (BNVA) | payer MEDICAID, SELFPAY | PROVIDERS: PCP Nurse Practitioner Primary Care; Visit Provider Nurse Practitioner Family | DX: N13.30 Unspecified hydronephrosis (principal) | CPT/HCPCS: 81003; 99212 ==

== ENCOUNTER 2024-02-13 14:12 | Outpatient (AMB) | payer MEDICAID, SELFPAY ==
--- NOTE | 2024-02-13 14:14 | A.OFFVIS_ITS ---
Vital Signs 02/13/24 14:19 Height 5 ft 8 in Weight 174 lb 6 oz BMI 26.5 BP 136/79 Blood Pressure Location Lt brachial Position Sitting Pulse 84 Intake Visit Reasons: Abd pain Intake Note: Patient is seen in office for evaluation and treatment of abdominal pain. Pt c/o: onset 5 months, LUQ lump and pain radiates to the back and chest, had prior kidney surgery in that side and x3 umbilical hernia repairs, denies n/v/d, admits constipation CT abd: 01/11/24 [employer]inking Required: No Accompanied by: Self / Same As Patient Allergies Penicillins [PENICILLINS] Allergy (Unknown, Verified 02/13/24 14:21) SWELLING Penicillins Allergy (Unknown, Uncoded 02/13/24 14:21) Unknown HPI Comments Details: 53-year-old male patient presenting with a long history of abdominal pain with associated abdominal distension, nausea, constipation, previously evaluated in the ED at [facility] [place] and [facility] [place]. Patient was felt to have evidence of gallstones by CT at [facility] [place] and presents today for possible cholecystectomy. CT abdomen and pelvis performed at [facility] [place] however revealed no gallstones and normal biliary tract however left hydroureter was identified. Patient reports diffuse abdominal pain felt not only in the right upper quadrant, epigastrium but extending over to the left upper quadrant and left flank. He has had 2 previous procedures of the left kidney including a stent placement. He reports the abdominal pain has been persistent for least 1.5 years. An ultrasound of the abdomen was requested at his last visit however has not been performed. He did undergo a repeat CT of the abdomen and pelvis. Once again the gallbladder was noted to be normal. A large ventral hernia repair is noted and no recurrent hernia is identified. There is diastasis which is unchanged. Patient's pain is mainly in the left upper quadrant with radiation into the back. He does have a long history of back issues and previously underwent pain management for this. He is refusing further pain injections. [facility] Medical History Obesity (BMI 30-39.9) Left arm pain Major depression Decreased vision Anxiety Hypercholesterolemia Essential hypertension Type 2 diabetes mellitus with complication, without long-term current use of insulin Chronic midline low back pain without sciatica ESME (obstructive sleep apnea) Dizziness Family History Maternal Aunt Cancer of unknown origin Social History Alcohol intake: never Patient Tobacco Use Status: Current everyday Tobacco user Review of Systems Const All systems reviewed & are unremarkable except as noted in HPI and below Denies chills, Denies fever(s), Denies headache(s), Denies poor appetite and Denies weakness ENT Denies headache(s) Card Denies chest pain, Denies irregular heart rhythm, Denies palpitations and Denies dyspnea Resp Denies cough, Denies excessive phlegm production and Denies dyspnea GI Reports abdominal pain, Reports bloating, Denies change in bowel habits, Reports constipation, Denies heartburn, Denies diarrhea, Reports nausea and Denies vomiting Denies difficulty urinating and Denies urinary frequency Musc Reports back pain, Denies muscle weakness and Denies numbness Skin/Breast Denies changing lesions and Denies unusual bruising Neuro Denies headache(s), Denies numbness, Denies paresthesias and Denies weakness Psych Denies anxiety and Denies depression Endo Denies palpitations Vitaliy/Lymph Denies lymphadenopathy Physical Exam Vital Signs: Last Vital Signs Pulse 84 02/13/24 14:19 BP 136/79 02/13/24 14:19 BMI result Body Mass Index 26.5 Const General: tired appearing Nutritional Appearance: well nourished Orientation/consciousness: patient oriented x3 Resp Effort & Inspection: normal respiratory effort GI Other: Soft and nondistended. There is mild tenderness in the left upper quadrant which extends into the left flank and left back. He is tenderness with palpation of the lower ribcage and spine suggestive of a radicular pain. No palpable masses appreciated in the left upper quadrant and no changes noted with Valsalva maneuvers. Skin Other: Warm, dry, no rash Neuro General: patient oriented x3 Extrem Other: No edema Assessment & Plan Assessment & Plan (1) Abdominal pain: Code(s): R10.9 - Unspecified abdominal pain Category: Medical Qualifiers: Abdominal location: generalized Qualified Code(s): R10.84 - Generalized abdominal pain Plan Unfortunate 53-year-old male with chronic pain felt in the left upper quadrant. He was initially evaluated for acute cholecystitis however his current symptoms and workup point more to his back the source of the pain. Review of his recent CT reveals no evidence of a hernia especially in the left upper quadrant. He has had a previous large hernia repair by CT appears to be intact. I recommended he consider returning to pain management. No surgical intervention is recommended at this time. Medications: New tramadol 50 mg PO BID PRN 30 tabs 0RF pain (scale score 7-10) R10.84 - Generali zed abdominal pain Coding Level of Care Code Est Pt Level 3 (40423) Diagnoses Generalized abdominal pain R10.84 Abdominal location: generalized
[2024-02-13 14:19] VITALS: BP 136/79; PULSE 84; BMI 26.5
== END 2024-02-13 14:46 | disposition home or self-care (01) ==
PROVIDERS: PCP Nurse Practitioner Primary Care; Referring Provider Nurse Practitioner Primary Care; Visit Provider Surgery
DX: R10.84 Generalized abdominal pain (principal)
CPT/HCPCS: 99213

== ENCOUNTER → 2024-02-13 14:12 | Outpatient (BNVA) | payer MEDICAID, SELFPAY | PROVIDERS: PCP Nurse Practitioner Primary Care; Referring Provider Nurse Practitioner Primary Care; Visit Provider Surgery | DX: R10.84 Generalized abdominal pain (principal) | CPT/HCPCS: 99212 ==

== ENCOUNTER 2024-05-14 09:09 | Outpatient (REF) | payer MEDICAID, SELFPAY ==
--- NOTE | 2024-05-14 09:14 | EMG_ITS ---
Bilateral median and ulnar motor and sensory studies were performed. Bilateral radial sensory and median and lateral antecubital brachial sensory studies were performed and paraspinal muscles were tested with some limb muscles. IMPRESSION: 1. Moderately severe bilateral median neuropathy across carpal tunnel. 2. Mild to moderate bilateral ulnar neuropathy across cubital tunnel. 3. Chronic left brachial plexopathy. 4. Underlying axonal sensory motor peripheral neuropathy. MD YANIRA Gant/LEEANNA / [phone]
== END 2024-05-14 09:10 | disposition home or self-care (01) ==
LOC: HO.NEURO 09:09
PROVIDERS: PCP Nurse Practitioner Primary Care; Visit Provider Nurse Practitioner Primary Care
DX: R20.0 Anesthesia of skin (principal); R20.2 Paresthesia of skin
CPT/HCPCS: 95886; 95913

== ENCOUNTER → 2024-05-14 09:50 | Outpatient (REF) | payer MEDICAID, SELFPAY ==
--- NOTE | ~2024-05-14 | NM_ITS ---
EXAMINATION: NM RENOGRAM WITH LASIX CLINICAL INFORMATION: 53-year-old male with unspecified hydronephrosis. COMPARISON: CT of the abdomen and pelvis done on 01/11/2024 and 01/27/2023 and renal ultrasound done on 01/22/2024. TECHNIQUE: Dynamic renal scintigraphy was performed after intravenous administration of 10 mCi Tc-99m Technetium 99m DTPA 40 mg of furosemide was administered at 30 minutes and continued dynamic imaging of the abdomen/pelvis was obtained for a total of 60 minutes. FINDINGS: Left kidney 29.5% and the right kidney 70.5% of total renal uptake. Left Kidney: Normal perfusion. Progressive tracer uptake into the cortex and subsequent excretion of the radiotracer into the prominent left-sided pelvicalyceal system is noted. There is progressive washout of radiotracer noted before and after administration of Lasix with downward slope on the time activity curve. Mild asymmetric prominent calyces is noted when compared to the right site. Right Kidney: Normal perfusion. Progressive tracer uptake into the cortex and subsequent excretion of radiotracer into the normal-appearing pelvicalyceal system is seen. There is progressive washout of radiotracer noted before as well as after administration of Lasix. No evidence of any radiotracer retention noted at the end of the exam. Postvoid images shows mild prominent pelvicalyceal system on the left and decompressed pelvicalyceal system on the right. No evidence of any reflux. No meaningful T1/2 on post Lasix images could be calculated. Other: None. NM/NM renal flow w pharm int IMPRESSION: 1. Differential renal function: Left 29.5%, Right 70.5%. 2. Left kidney has non-obstructive parameters after diuresis. Asymmetric prominent calyceal system however is present. 3. Right kidney has non-obstructive parameters after diuresis.
== END ==
LOC: HO.NUCMED 09:50
PROVIDERS: PCP Nurse Practitioner Primary Care; Visit Provider Nurse Practitioner Family
DX: N13.30 Unspecified hydronephrosis (principal)
CPT/HCPCS: 78708; A9539; J1940

== ENCOUNTER 2024-05-31 10:14 | Outpatient (REF) | payer MEDICAID, SELFPAY ==
[2024-05-31 12:00] LABS: Blood Urea Nitrogen 15 mg/dL (9-16); Estimated Glomerular Filt Rate > 60
== END 2024-05-31 10:15 | disposition home or self-care (01) ==
LOC: HO.HHCL 10:14
PROVIDERS: Visit Provider Nurse Practitioner Family
DX: N18.30 Chronic kidney disease, stage 3 unspecified (principal)
CPT/HCPCS: 36415; 82565; 84520

== ENCOUNTER 2024-06-05 13:46 | Outpatient (AMB) | payer MEDICAID, SELFPAY ==
--- NOTE | 2024-06-05 13:50 | A.OFFVIS_ITS ---
Intake Visit Reasons: 2m/Nuclear scan/labs(set) Intake Note: Patient presents today for follow up on hydronephrosis and nuclear scan results Imaging Completed: 05/14/24 Urology Medications: none Blood Thinner: aspirin Welfare Case Worker Required: No Accompanied by: Self / Same As Patient Allergies Penicillins [PENICILLINS] Allergy (Unknown, Verified 06/05/24 14:16) SWELLING Penicillins Allergy (Unknown, Uncoded 06/05/24 14:16) Unknown Medication List - Last Reconciled 06/05/24 by RUDDY Archer acetaminophen 500 mg PO Q6H PRN albuterol sulfate 90 mcg/actuation (Ventolin HFA) 2 puffs inhalation Q4-6H PRN amlodipine 10 mg PO DAILY aripiprazole 10 mg PO QAM aspirin 81 mg PO DAILY PRN atorvastatin 80 mg PO DAILY blood sugar diagnostic (FreeStyle Lite Strips) As directed carvedilol 3.125 mg PO BID enalapril maleate 20 mg PO QAM glipizide 10 mg PO lancets (Easy Touch Twist Lancets) As directed lidocaine 5% 1 patch topical DAILY methocarbamol 500 mg PO TID PRN 30 days tramadol 50 mg PO BID PRN HPI Comments Details: Nii is a 54-year-old male patient of Dr. Griffin who was accompanied by his daughter at today's office visit. He has a past medical history of depression, anxiety, hypercholesteremia, hypertension, type 2 diabetes, obstructive sleep apnea, and dizziness. He presents to the office today for follow-up. Of note, patient was seen a approximately 5 months ago as a new patient for nephrolithiasis and chronic hydronephrosis at which time a nuclear renal scan was ordered for further assessment evaluation. These results were reviewed with the patient today. 05/25 Left kidney 29.5% and the right kidney 70.5% of total renal uptake. Differential renal function: Left kidney 29.5%, right kidney 70.5%. Bilateral kidneys with nonobstructing parameters after diuresis. Patient discusses his longstanding history of multiple surgical interventions on his nephrolithiasis. He reports undergoing a surgical procedure at the age of 5 and had had a nephrostomy tube for quite some time. He reports in 2008 he also underwent what sounds like a ureteral stent placement however was incarcerated there after and surgical intervention was required to remove ureteral stent. He is unsure as to what side this was. Previous workup has also included CT 01/11/24 noted left kidney shows cysts and moderate caliectasis and overlying renal cortical thinning, compatible with chronic obstructive uropathy. There is, however, no left renal pelviectasis or hydroureter. Unchanged 0.4 cm calculus in anterior mid right kidney, compatible with nonobstructive calculus or intrarenal atherosclerotic calcification. Unchanged posterior mid right renal cortical simple cyst, for which no follow up imaging is recommended per radiology report. Ultrasound 01/24/24 that noted bilateral kidneys with no hydronephrosis or renal calculi. There are bilateral renal cyst at require no imaging follow-up per radiology report. Discussed at length potential causes of chronic hydronephrosis given patient's previous history of surgical intervention. He otherwise denies any bothersome urinary issues. He denies denies urinary urgency, urinary frequency, incontinence, nocturia, hematuria, dysuria, foul smelling urine, changes to urinary stream, flank pain, fever, and or chills. He is happy with his current voiding parameters. In office urinal ysis results reviewed with the patient today. BUN:09/18 17, 01/22 21, 07/24 15, 08/24 16, 10/25 14, 10/25 16, 11/25 18, 12/23 12, 05/25 15 Creatinine: 09/18 1.13, 01/22 1.21, 07/24 1.19, 08/24 1.12, 10/25 0.85, 10/25 0.98, 11/25 1.08, 12/23 0.85, 05/25 1.17 [facility] Medical History Obesity (BMI 30-39.9) Left arm pain Major depression Decreased vision Anxiety Hypercholesterolemia Essential hypertension Type 2 diabetes mellitus with complication, without long-term current use of insulin Chronic midline low back pain without sciatica ESME (obstructive sleep apnea) Dizziness Family History Maternal Aunt Cancer of unknown origin Social History Alcohol intake: never Patient Tobacco Use Status: Current everyday Tobacco user Review of Systems Const Reports as per HPI Eyes Reports no additional complaints ENT Reports no additional complaints Card Reports as per [facility] Resp Reports no additional complaints GI Reports no additional complaints Reports as per [facility] Musc Reports as per [facility] Neuro Reports no additional complaints Psych Reports as per [facility] Endo Reports as per [facility] Vitaliy/Lymph Reports no additional complaints Aller/Immun Reports no additional complaints Physical Exam Const General: cooperative, comfortable, no acute distress, well developed, alert and awake Orientation/consciousness: patient oriented x3 Limitations: no limitations HEENT Head: Yes normal to inspection, Yes normocephalic and Yes atraumatic Ears: hearing grossly normal bilaterally Eyes General: appearance normal, both eyes and all related structures Neck Neck: Yes normal visual inspection and Yes trachea midline Chest Chest palpation & inspection: normal inspection of the chest Resp Effort & Inspection: normal respiratory effort and able to speak in complete sentences Cardio Rate: regular rate GI Inspection: Yes normal to inspection General: Yes CVA tenderness (left side greater than right ) bilateral Back/Spine/Pelvis Back: CVA tenderness (left side greater than right ) Skin General skin exam: no rashes or lesions noted Neuro General: patient oriented x3 Extrem General: Yes normal to inspection Psych Appearance: grossly normal and well kempt Mental Status: mental status grossly normal Speech and movement: Normal speech and movement present and Clear speech present Affect: normal affect Attitude: cooperative Thought process: Normal thought process present Thought content: Normal thought content present Insight: Fair insight present (Psych) Judgement: Fair judgement present (Psych) Results AMB Urinalysis, Automated UA Leukoctes 0 Katie/uL Last Edit by [employer] on 06/05/24 14:08 UA Nitrite Negative Last Edit by [employer] on 06/05/24 14:08 UA Urobilinogen 0.2 mg/dL Last Edit by [employer] on 06/05/24 14:08 UA Protein 15 mg/dL Last Edit by [employer] on 06/05/24 14:08 UA pH 6.0 Last Edit by [employer] on 06/05/24 14:[address]/uL Last Edit by [employer] on 06/05/24 14:08 UA Specific [place] 1.025 Last Edit by [employer] on 06/05/24 14:08 UA Ketone Negative Last Edit by Andrey Tamez on 06/05/24 14:08 UA Bilirubin 0 mg/dL Last Edit by Andrey [employer] on 06/05/24 14:08 UA Glucose 0 mg/dL Last Edit by Andrey Tamez on 06/05/24 14:08 Results Reviewed Results Reviewed: Laboratory Last Values Urine pH (Auto) 6.0 06/05/24 14:07 Specific [place] (Auto) 1.025 06/05/24 14:07 Urine Protein (Auto) 15 mg/dL 06/05/24 14:07 Glucose (UA)(Auto) 0 mg/dL 06/05/24 14:07 Urine Ketones (Auto) Negative 06/05/24 14:07 Urine Blood (Auto) 0 Lane/uL 06/05/24 14:07 Urine Nitrite (Auto) Negative 06/05/24 14:07 Urine Bilirubin (Auto) 0 mg/dL 06/05/24 14:07 Urine Urobilinogen (Auto) 0.2 mg/dL 06/05/24 14:07 Leukocyte Esterase (Auto) 0 Katie/uL 06/05/24 14:07 Date of Service: 05/14/24 EXAMINATION: NM RENOGRAM WITH LASIX FINDINGS: Left kidney 29.5% and the right kidney 70.5% of total renal uptake. Left Kidney: Normal perfusion. Progressive tracer uptake into the cortex and subsequent excretion of the radiotracer into the prominent left-sided pelvicalyceal system is noted. There is progressive washout of radiotracer noted before and after administration of Lasix with downward slope on the time activity curve. Mild asymmetric prominent calyces is noted when compared to the right site. Right Kidney: Normal perfusion. Progressive tracer uptake into the cortex and subsequent excretion of radiotracer into the normal-appearing pelvicalyceal system is seen. There is progressive washout of radiotracer noted before as well as after administration of Lasix. No evidence of any radiotracer retention noted at the end of the exam. Postvoid images shows mild prominent pelvicalyceal system on the left and decompressed pelvicalyceal system on the right. No evidence of any reflux. No meaningful T1/2 on post Lasix images could be calculated. Other: None. IMPRESSION: 1. Differential renal function: Left 29.5%, Right 70.5%. 2. Left kidney has non-obstructive parameters after diuresis. Asymmetric prominent calyceal system however is present. 3. Right kidney has non-obstructive parameters after diuresis. Assessment & Plan Assessment & Plan (1) Hydronephrosis: Code(s): N13.30 - Unspecified hydronephrosis Category: Medical Plan In office urinalysis results reviewed with the patient today; as noted above. Recent nuclear renal scan results reviewed with the patient today; as noted pippa king. BUN and creatinine results reviewed with the patient today; as noted above. Discussed split renal function however no obstruction noted; will continue with surveillance monitoring Patient currently denies any bothersome urinary issues or concerns. He reports be happy with current voiding parameters. Will obtain nuclear renal scan in 6 months. Will obtain BUN and creatinine in 6 months. Follow-up in 6 months with imaging and labs to be completed prior; or sooner with any issues, concerns, and or questions. Orders: Orders AMB Urinalysis Automated Today Z13.9 - Encounter for screening, unspecified Blood Urea Nitrogen 6 Months N13.30 - Unspecified hydronephrosis Creatinine 6 Months N13.30 - Unspecified hydronephrosis NM renal flow w pharm int 6 Months N13.30 - Unspecified hydronephrosis Patient Instructions: The patient had an opportunity to ask questions regarding the treatment plan. All questions were answered. Physical exam, labs, and imaging were discussed and reviewed in detail. As well as risks, benefits, and discussion of treatment choices. No major barriers to understanding were identified. The patient expressed understanding and agreement with the above treatment plan. The patient was made aware they should contact our office by phone for worsening of their current condition, the appearance of new symptoms, or with any questions or concerns. Compliance is encouraged with any medications and follow up testing that is ordered. It is a privilege to be allowed the opportunity to participate in? your urological care.? Again, if you have any questions or concerns If you have any questions or concerns please do not hesitate to contact me. The office is [phone]. This note is constructed using voice recognition software. While every effort has been made to ensure accuracy machine sander errors may have been included. Yours sincerely, RUDDY Archer Coding Level of Care Code Est Pt Level 3 (96300) Complex EM visit Add On G2211 Diagnoses Hydronephrosis N13.30
== END 2024-06-05 14:14 | disposition home or self-care (01) ==
PROVIDERS: PCP Nurse Practitioner Primary Care; Visit Provider Nurse Practitioner Family
DX: N13.30 Unspecified hydronephrosis (principal); Z13.9 Encounter for screening, unspecified
CPT/HCPCS: 99213

== ENCOUNTER → 2024-06-05 13:46 | Outpatient (BNVA) | payer MEDICAID, SELFPAY | PROVIDERS: PCP Nurse Practitioner Primary Care; Visit Provider Nurse Practitioner Family | DX: N13.30 Unspecified hydronephrosis (principal) | CPT/HCPCS: 81003; 99212 ==

== ENCOUNTER 2024-08-19 12:51 | Outpatient (AMB) | payer MEDICAID, SELFPAY ==
--- NOTE | 2024-08-19 12:58 | A.OFFVIS_ITS ---
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 EMG done on 05/14/2024. Patient reports the dorsal aspect of his left hand becomes numb and tingling sensation radiates to the finger tips of his 2nd, 3rd, 4th and 5th digits. He expresses when he runs his hand along the top of his finger tips it feels ticklish to him. He states his bilateral hands cramp up and his fingers lock. He says when this happens he squeezes his hands into a fist and then forces his hands open by pushing his fingers against each other. Denies past medical treatment to bilateral hands. Hx of DM. Unknown of last A1C. He think last number was a 6. 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 The patient states that his carpal tunnel symptoms are intermittent, but daily, and worse at night. Patient states that he also notices his hands frequently cramping and feeling as if they are going to lock. Patient states he is unsure if he has experienced any numbness in the small fingers of bilateral hands. Patient has had no previous treatment for his carpal tunnel syndrome. No other acute complaints or concerns at this time. [facility] Medical History Obesity (BMI 30-39.9) Left arm pain Major depression Decreased vision Anxiety Hypercholesterolemia Essential hypertension Type 2 diabetes mellitus with complication, without long-term current use of ins ulin Chronic midline low back pain without sciatica ESME (obstructive sleep apnea) Dizziness Family History Maternal Aunt Cancer of unknown origin Social History Alcohol intake: never Patient Tobacco Use Status: Current everyday Tobacco user Physical Exam Vital Signs: BMI result Body Mass Index 21.7 Extrem Other: Neuro: Diminished sensation in the median nerve distribution of bilateral hands in the office today Normal sensation of the tips of bilateral small fingers No thenar or intrinsic wasting. Good APB muscle firing and good finger cross. Vascular: Capillary refill brisk. ROM: Patient can make a fist and extend all their digits. Skin: No lacerations or abrasions noted. General: No ecchymosis. No erythema or evidence of infection. Results Reviewed Results Reviewed: IMPRESSION: 1. Moderately severe bilateral median neuropathy across carpal tunnel. 2. Mild to moderate bilateral ulnar neuropathy across cubital tunnel. 3. Chronic left brachial plexopathy. 4. Underlying axonal sensory motor peripheral neuropathy. Earnestine Tejada MD Assessment & Plan Assessment & Plan (1) Bilateral carpal tunnel syndrome: Code(s): G56.03 - Carpal tunnel syndrome, bilateral upper limbs Category: Medical (2) Cubital tunnel syndrome, bilateral: Code(s): G56.23 - Lesion of ulnar nerve, bilateral upper limbs Category: Medical Plan 1. Bilateral carpal tunnel syndrome 2. Bilateral cubital tunnel syndrome on EMG Symptoms intermittent, daily, worse at night Patient is educated about these conditions and the treatment options available , namely surgery however, patient states he would like to hold off on any surgical intervention at this time Patient is educated on the potential risks of waiting too long for carpal and cubital tunnel surgical intervention, namely dense numbness and wasting of the muscles of the bilateral hands Patient states understanding of this Patient is also provided with bilateral Velcro wrist splints to be worn at night to help with his nighttime symptoms Patient was amenable to this plan Patient will follow-up when he is ready to discuss potential surgical intervention, sooner with any acute concerns Coding Level of Care Code New Pt Level 3 (39992) Diagnoses Bilateral carpal tunnel syndrome G56.03 Cubital tunnel syndrome, bilateral G56.23
[2024-08-19 13:00] VITALS: BMI 21.7
== END 2024-08-19 13:47 | disposition home or self-care (01) ==
PROVIDERS: PCP Nurse Practitioner Primary Care
DX: G56.03 Carpal tunnel syndrome, bilateral upper limbs (principal); G56.23 Lesion of ulnar nerve, bilateral upper limbs
CPT/HCPCS: 99203

== ENCOUNTER → 2024-08-19 12:51 | Outpatient (BNVA) | payer MEDICAID, SELFPAY | PROVIDERS: PCP Nurse Practitioner Primary Care | DX: G56.03 Carpal tunnel syndrome, bilateral upper limbs (principal); G56.23 Lesion of ulnar nerve, bilateral upper limbs | CPT/HCPCS: 99212 ==

== ENCOUNTER 2024-08-21 15:46 | Outpatient (REF) | payer MEDICAID, SELFPAY ==
[2024-08-21 18:05] LABS: Cholesterol 191 mg/dL (<200); HDL Cholesterol 42 mg/dL (>40); LDL Cholesterol Calculated 117 mg/dL (<100); Triglycerides 162 mg/dL (<150)
[2024-08-22 04:35] LABS: HIV AB/AG Nonreactive (Nonreactive); HIV Num 1 0.05 S/CO (0.00-0.99); ~HepC Num1 0.15 S/CO (0.00-0.79); ~Hepatitis C Antibody Nonreactive (Nonreactive)
[2024-08-22 07:13] LABS: CT PCR NOT DETECTED (Not Detect.); NG PCR NOT DETECTED (Not Detect.)
[2024-08-23 11:13] LABS: RPR Rapid Plasma Reagin NON-REACTIVE (NON-REACTIVE)
[2024-08-26 17:53] LABS: Testosterone, Free 66.8 pg/mL (35.0-155.0); Testosterone, Total 369 ng/dL (250-1100)
== END 2024-08-21 15:47 | disposition home or self-care (01) ==
LOC: HO.HHCL 15:46
PROVIDERS: Visit Provider Nurse Practitioner Primary Care
DX: R52 Pain, unspecified (principal); Z11.3 Encounter for screening for infections with a predominantly sexual mode of transmission; R53.83 Other fatigue; E11.69 Type 2 diabetes mellitus with other specified complication; E78.5 Hyperlipidemia, unspecified
CPT/HCPCS: 36415; 80061; 82550; 84402; 84403; 86592; 86803; 87389; 87491; 87591

== ENCOUNTER 2024-09-02 13:26 | Outpatient (AMB) | payer MEDICAID, SELFPAY ==
--- NOTE | 2024-09-02 14:49 | MHC.OFFVIS ---
Vital Signs 09/02/24 14:55 Height 5 ft 8 in Weight 210 lb BMI 31.9 BP 139/82 Blood Pressure Location Lt brachial Position Sitting Pulse 71 Pulse Source Pulse Oximeter Pulse Oximetry (%) 97 Oxygen Delivery Method Room Air Intake Visit Reasons: Med Review Intake Note: Pain today 8 Plastic Surgery Manager Required: No Accompanied by: Family/Other Allergies Penicillins [PENICILLINS] Allergy (Unknown, Verified 09/02/24 14:55) SWELLING Penicillins Allergy (Unknown, Uncoded 08/19/24 13:01) Unknown HPI Comments Details: Nii is back in my office with complains on multiple pain generators. Last time we started him on methocarbamol 500 mg he denies any help from this medication however he denies side effects. The decision was made today to escalate methocarbamol to 750 mg b.i.d.. He had complained for early satiety and the left upper quadrant pain. He went for surgical consult and no intervention was offered to address left upper quadrant pain. Nothing abdominal. For the left knee pain he was offered genicular nerve block and with good results radiofrequency ablation. Prior: very pleasant 53 years old gentleman who presents in my office with complains on widespread all over the body. He reports pain in the bilateral arms bilateral scapula lower back bilateral lower extremities he reports that he cannot sleep normally cannot do activities of daily living cannot take care of himself cannot function normally he is on permanent disability he needs walker for ambulation however he reports that he does not have 1. He reports that movements aggravates his pain and some oral medications make his pain better. The pain is very severe throughout the day he reports his pain 8/10. he reports that he smokes 2 packs of the cigarettes per day since his 9 years old. [facility] Medical History Obesity (BMI 30-39.9) Left arm pain Major depression Decreased vision Anxiety Hypercholesterolemia Essential hypertension Type 2 diabetes mellitus with complication, without long-term current use of insulin Chronic midline low back pain without sciatica ESME (obstructive sleep apnea) Dizziness Family History Maternal Aunt Cancer of unknown origin Social History Alcohol intake: never Patient Tobacco Use Status: Current everyday Tobacco user Review of Systems Const All systems reviewed & are unremarkable except as noted in HPI and below ENT Reports Normal hearing present Neuro Reports Normal hearing present, Denies Abnormal speech present, Denies confusion and Denies Sensory deficit (Neuro) Psych Denies confusion Physical Exam Vital Signs: Last Vital Signs Pulse 71 09/02/24 14:55 BP 139/82 09/02/24 14:55 Pulse Ox 97 09/02/24 14:55 Oxygen Delivery Method Room Air 09/02/24 14:55 BMI result Body Mass Index 31.9 Const General: No confusion Orientation/consciousness: No confusion Eyes General: appearance normal, both eyes and all related structures Pupils: Equal, round and reactive pupils present EOM: EOMs intact bilaterally Neck Neck: Yes full ROM Chest Chest palpation & inspection: normal inspection of the chest Resp Effort & Inspection: normal respiratory effort, able to speak in complete sentences, normal respiratory pattern, no audible wheezes and no cough Cardio Jugular venous distension: no JVD GI Inspection: Yes normal to inspection Neuro General: No confusion Cranial nerves: Yes Equal, round and reactive pupils present and Yes Normal hearing present Speech: No Abnormal speech present Gait exam (Neuro): Normal gait present Motor exam (neuro): 5/5 motor strength present throughout Sensory Exam: No Sensory deficit (Neuro) Extrem General: No pedal edema Psych Speech and movement: Normal speech and movement present Affect: normal affect Attitude: cooperative Thought process: Normal thought process present Thought content: Normal thought content present Insight: Good insight present (Psych) Judgement: Good judgement present (Psych) Assessment & Plan Assessment & Plan (1) Diabetic arthropathy: Code(s): E11.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 - Type 2 diabetes mellitus with other diabetic arthropathy Category: Medical (2) Smoking addiction: Code(s): F17.200 - Nicotine dependence, unspecified, uncomplicated Category: Social Hx (3) Chronic pain syndrome: Code(s): G89.4 - Chronic pain syndrome Category: Medical (4) Fibromyalgia: Code(s): M79.7 - Fibromyalgia Category: Medical (5) Left knee pain: Code(s): M25.562 - Pain in left knee Category: Medical (6) Arthritis of left knee: Code(s): M17.12 - Unilateral primary osteoarthritis, left knee Category: Medical Plan combination of heavy smoking, uncontrolled diabetes, osteoarthritis and diabetes arthritis probably result in his widespread pain. Fibromyalgia cannot be excluded either. He had reported early satiety in left upper quadrant pain. CT scan was done and he was examined by a surgeon. Dr. rUbina did not recommend any surgical intervention. He continues gabapentin maximal doses. He was started on methocarbamol 700 mg t.i.d. help his pain. This is escalation from 500 mg t.i.d. which he was prescribed at his last appointment. To help his pain in the left knee I offered him and I will perform diagnostic genicular nerve block. Radiofrequency ablation of the left genicular nerves will be a possibility to treat this pain. Medications: New methocarbamol 750 mg PO TID 30 days 90 tabs 4RF Discontinued methocarbamol Discontinued Reason: Doctor's Order 500 mg PO TID 30 days PRN 90 tabs 6RF muscle spasticity Coding Level of Care Code Est Pt Level 3 (50640) Diagnoses Diabetic arthropathy E11.618 Smoking addiction F17.200 Chronic pain syndrome G89.4 Fibromyalgia M79.7 Left knee pain M25.562 Arthritis of left knee M17.12
[2024-09-02 14:55] VITALS: BP 139/82; PULSE 71; O2SAT 97; BMI 31.9
== END 2024-09-02 15:15 | disposition home or self-care (01) ==
PROVIDERS: PCP Nurse Practitioner Primary Care; Visit Provider Anesthesiology
DX: E11.618 Type 2 diabetes mellitus with other diabetic arthropathy (principal); F17.200 Nicotine dependence, unspecified, uncomplicated; G89.4 Chronic pain syndrome; M79.7 Fibromyalgia; M25.562 Pain in left knee; M17.12 Unilateral primary osteoarthritis, left knee
CPT/HCPCS: 99213

== ENCOUNTER → 2024-09-02 13:26 | Outpatient (BNVA) | payer MEDICAID, SELFPAY | PROVIDERS: PCP Nurse Practitioner Primary Care; Visit Provider Anesthesiology | DX: E11.618 Type 2 diabetes mellitus with other diabetic arthropathy (principal); M17.12 Unilateral primary osteoarthritis, left knee; M25.562 Pain in left knee; G89.4 Chronic pain syndrome; M79.7 Fibromyalgia; F17.210 Nicotine dependence, cigarettes, uncomplicated; Z73.6 Limitation of activities due to disability | CPT/HCPCS: 99212 ==

== ENCOUNTER 2024-10-15 14:58 | Outpatient (AMB) | payer MEDICAID, SELFPAY ==
[2024-10-15 15:00] VITALS: BP 146/80; PULSE 66; O2SAT 97; BMI 32.8
--- NOTE | 2024-10-15 15:00 | MHC.OFFVIS ---
Vital Signs 10/15/24 15:00 Height 5 ft 8 in Weight 216 lb BMI 32.8 BP 146/80 H Blood Pressure Location Rt brachial Position Sitting Pulse 66 Pulse Source Pulse Oximeter Pulse Oximetry (%) 97 Oxygen Delivery Method Room Air Intake Visit Reasons: Constipation, R/S JOANN Pt Intake Note: NEW PATIENT Reason; [place] scrn Prior hx of colo/egd? N Concerns/Questions? No significant concerns per pt. Allergies Penicillins [PENICILLINS] Allergy (Unknown, Verified 10/15/24 15:01) SWELLING HPI HPI Constipation, R/S JOANN Pt: Details: 54 year old? male past medical history of hydronephrosis, arthritis to left knee, fibromyalgia, diabetes, hypertension, hypercholesteremia is here today for pre colonoscopy screening.? Patient was sent to us by his PCP.? This is his first colonoscopy screening.? Patient denies any gastrointestinal symptoms in the past or at present.? However patient does report that he is constipated. Bowel movements every 2-3 days. Denies melena, hematochezia. Denies any personal or family history of gastrointestinal disease, colon polyps, or CRC.? Denies history of difficulty with sedation or anesthesia in the past.? Negative for history of sleep apnea.? Denies any history of cardiac, renal, pulmonary, or hepatic disease.?? No history of infectious? diseases like hepatitis A, B, C, HIV or tuberculosis.? Patient is on low-dose aspirin [facility] Medical History Obesity (BMI 30-39.9) Left arm pain Major depression Decreased vision Anxiety Hypercholesterolemia Essential hypertension Type 2 diabetes mellitus with complication, without long-term current use of insulin Chronic midline low back pain without sciatica ESME (obstructive sleep apnea) Dizziness Family History Maternal Aunt Cancer of unknown origin Social History Alcohol intake: never Patient Tobacco Use Status: Current everyday Tobacco user Review of Systems Const Denies weight gain and Denies weight loss ENT Reports no additional complaints, Denies dysphagia and Denies odynophagia Card Reports no additional complaints Resp Reports no additional complaints GI Denies abdominal pain, Denies belching, Denies melena, Denies bloating, Denies change in bowel habits, Denies dysphagia, Denies excessive flatus, Denies dyspepsia, Denies heartburn, Denies diarrhea, Denies loose stools, Denies nausea, Denies odynophagia and Denies vomiting Reports no additional complaints Musc Reports no additional complaints Neuro Reports no additional complaints Psych Reports no additional complaints Endo Reports no additional complaints Physical Exam Vital Signs: Last Vital Signs Pulse 66 10/15/24 15:00 BP 146/80 H 10/15/24 15:00 Pulse Ox 97 10/15/24 15:00 Oxygen Delivery Method Room Air 10/15/24 15:00 BMI result Body Mass Index 32.8 Const General: healthy appearing and no acute distress Nutritional Appearance: obese Orientation/consciousness: patient oriented x3 Resp Effort & Inspection: normal respiratory effort, able to speak in complete sentences, no tracheal deviation and symmetric chest movement Auscultation: clear to auscultation bilaterally Cardio Rate: regular rate GI Inspection: Yes normal to inspection, No distended and Yes obesity Palpation (GI): Soft to palpation, not firm, nontender and No hepatosplenomegaly present Auscultation: normal bowel sounds General: Yes no CVA tenderness Back/Spine/Pelvis Back: no CVA tenderness Skin General skin exam: elasticity normal, turgor normal and dry skin Neuro General: patient oriented x3 Psych Appearance: grossly normal Mental Status: mental status grossly normal Insight: Good insight present (Psych) Judgement: Good judgement present (Psych) Assessment & Plan Assessment & Plan (1) Constipation: Code(s): K59.00 - Constipation, unspecified Qualifiers: Constipation type: slow transit constipation Qualified Code(s): K59.01 - Slow transit constipation Plan Patient reports constipation and left lower quadrant pain. Nontender normal exam. Script for Dulcolax sent for patient. Patient denies any cardiac or respiratory symptoms.? Denies any issues with anesthesia in the past.? Denies any history of sleep apnea.? No history infectious diseases in the past or present.? Patient is on low-dose aspirin.? No family or personal history of colon cancer or polyps.? Patient denies melena, hematochezia, unintentional weight loss or ribbon like stools.? Message sent to surgical schedulers to book procedure for patient. However patient will return in 2 months to re-evaluate and to discuss the prep. He is agreeable to this plan and verbalizes understanding of instructions. He was given the opportunity to ask questions and all questions answered. Thank you for allowing me to participate in his care Medications: New bisacodyl (Dulcolax (bisacodyl)) 10 mg (2 x 5 mg) PO BEDTIME 180 tabs 4RF Coding Level of Care Code New Pt Level 3 (59466) Diagnoses Slow transit constipation K59.01 Constipation type: slow transit constipation Time Spent (min) 40 Comment 30 minutes spent with patient and additional 10 minutes spent reviewing his records
== END 2024-10-15 15:40 | disposition home or self-care (01) ==
PROVIDERS: PCP Nurse Practitioner Primary Care; Visit Provider Nurse Practitioner Family
DX: K59.01 Slow transit constipation (principal)
CPT/HCPCS: 99203

== ENCOUNTER → 2024-10-15 14:58 | Outpatient (BNVA) | payer MEDICAID, SELFPAY | PROVIDERS: PCP Nurse Practitioner Primary Care; Visit Provider Nurse Practitioner Family | DX: K59.01 Slow transit constipation (principal) | CPT/HCPCS: 99212 ==

== ENCOUNTER 2024-10-17 10:53 | Outpatient (REF) | payer MEDICAID, SELFPAY ==
--- NOTE | ~2024-10-17 | US_ITS ---
CLINICAL HISTORY: R10.9 - Unspecified abdominal pain Exam: Ultrasound of the abdomen complete. Comparison: CT abdomen and pelvis January 11, 2024. Findings: Diffuse increased echotexture throughout the liver without focal lesion or intrahepatic biliary ductal dilatation. Common bile duct is within normal limits. Echogenic stones are seen within the gallbladder without gallbladder wall thickening or pericholecystic fluid. Negative sonographic Stubbs's sign. Spleen and pancreas are unremarkable. Right kidney measures 11.1 cm in long axis. Right kidney is of normal echotexture without focal lesion, nephrolithiasis, hydronephrosis. Left kidney measures 9.9 cm in long axis. Several simple cysts within the left kidney measuring up to 2.2 cm in size. No hydronephrosis. Aorta and inferior vena cava are patent. No free fluid. Impression: 1. Echogenic liver. This can be seen with fatty infiltration or medical liver disease. 2. Cholelithiasis without ultrasound findings of cholecystitis. 3. Diminutive left kidney with simple left renal cysts. This document has been electronically signed by: Nehemias Milner MD on 10/19/2024 08:06:30
== END 2024-10-17 10:54 | disposition home or self-care (01) ==
LOC: HO.US 10:53
PROVIDERS: PCP Nurse Practitioner Primary Care; Visit Provider Surgery
DX: R10.9 Unspecified abdominal pain (principal)
CPT/HCPCS: 76700

== ENCOUNTER → 2024-10-17 10:57 | Outpatient (BNV) | payer MEDICAID, SELFPAY | PROVIDERS: PCP Nurse Practitioner Primary Care; Visit Provider Radiology Diagnostic Radiology | DX: K80.20 Calculus of gallbladder without cholecystitis without obstruction (principal); N28.1 Cyst of kidney, acquired; K76.89 Other specified diseases of liver | CPT/HCPCS: 76700 ==

== ENCOUNTER 2024-11-04 14:45 | Outpatient (AMB) | payer MEDICAID, SELFPAY ==
--- NOTE | 2024-11-04 14:50 | A.OFFVIS_ITS ---
Vital Signs 11/04/24 14:52 Height 5 ft 8 in Weight 216 lb BMI 32.8 BP 177/88 H Blood Pressure Location Lt brachial Position Sitting Respiration 16 Pulse 72 Pulse Source Pulse Oximeter Pulse Oximetry (%) 99 Oxygen Delivery Method Room Air Intake Visit Reasons: 2 Month Follow Up Ict Customer Support Officer Required: No Allergies Penicillins [PENICILLINS] Allergy (Unknown, Verified 11/04/24 14:53) SWELLING Medication List - Last Reconciled 11/04/24 by Anusha Vigil LPN acetaminophen 500 mg PO Q6H PRN albuterol sulfate 90 mcg/actuation (Ventolin HFA) 2 puffs inhalation Q4-6H PRN amlodipine 10 mg PO DAILY aripiprazole 10 mg PO QAM aspirin 81 mg PO DAILY PRN atorvastatin 80 mg PO DAILY bisacodyl (Dulcolax (bisacodyl)) 10 mg (2 x 5 mg) PO BEDTIME blood sugar diagnostic (FreeStyle Lite Strips) As directed bupropion HCl XL 150 mg PO QAM carvedilol 3.125 mg PO BID dorzolamide-timolol 22.3-6.8 mg/mL 1 drp ophthalmic (eye) BID enalapril maleate 20 mg PO QAM glipizide 10 mg PO lancets (Easy Touch Twist Lancets) As directed lidocaine 5% 1 patch topical DAILY methocarbamol 750 mg PO TID 30 days sildenafil (Viagra) 100 mg PO DAILY PRN tramadol 50 mg PO BID PRN trazodone 100 mg PO BEDTIME vitamin B complex-folic acid 0.4 mg (B Complex 1 (with folic acid)) 1 tab PO DAILY HPI Comments Details: Nii is back in my office with complains on multiple pain generators. He came today stating that he never received methocarbamol 750 mg sent last time to his pharmacy. However the patient never picked up this medication. We will give him a call and tell him that he needs to go and leaf size picker this medication for himself. For the left knee pain he was offered genicular nerve block and with good results radiofrequency ablation. Prior: very pleasant 53 years old gentleman who presents in my office with complains on widespread all over the body. He reports pain in the bilateral arms bilateral scapula lower back bilateral lower extremities [facility] Medical History Obesity (BMI 30-39.9) Left arm pain Major depression Decreased vision Anxiety Hypercholesterolemia Essential hypertension Type 2 diabetes mellitus with complication, without long-term current use of insulin Chronic midline low back pain without sciatica ESME (obstructive sleep apnea) Dizziness Family History Maternal Aunt Cancer of unknown origin Social History Alcohol intake: never Patient Tobacco Use Status: Current everyday Tobacco user Review of Systems Const All systems reviewed & are unremarkable except as noted in HPI and below ENT Reports Normal hearing present Neuro Reports Normal hearing present, Denies Abnormal speech present, Denies confusion and Denies Sensory deficit (Neuro) Psych Denies confusion Physical Exam Vital Signs: Last Vital Signs Pulse 72 11/04/24 14:52 Resp 16 11/04/24 14:52 BP 177/88 H 11/04/24 14:52 Pulse Ox 99 11/04/24 14:52 Oxygen Delivery Method Room Air 11/04/24 14:52 BMI result Body Mass Index 32.8 Const General: No confusion Orientation/consciousness: No confusion Eyes General: appearance normal, both eyes and all related structures Pupils: Equal, round and reactive pupils present EOM: EOMs intact bilaterally Neck Neck: Yes full ROM Chest Chest palpation & inspection: normal inspection of the chest Resp Effort & Inspection: normal respiratory effort, able to speak in complete sentences, normal respiratory pattern, no audible wheezes and no cough Cardio Jugular venous distension: no JVD GI Inspection: Yes normal to inspection Neuro General: No confusion Cranial nerves: Yes Equal, round and reactive pupils present and Yes Normal hearing present Speech: No Abnormal speech present Gait exam (Neuro): Normal gait present Motor exam (neuro): 5/5 motor strength present throughout Sensory Exam: No Sensory deficit (Neuro) Extrem General: No pedal edema Psych Speech and movement: Normal speech and movement present Affect: normal affect Attitude: cooperative Thought process: Normal thought process present Thought content: Normal thought content present Insight: Good insight present (Psych) Judgement: Good judgement present (Psych) Assessment & Plan Assessment & Plan (1) Diabetic arthropathy: Code(s): E11.618 - Type 2 diabetes mellitus with other diabetic arthropathy Category: Medical (2) Smoking addiction: Code(s): F17.200 - Nicotine dependence, unspecified, uncomplicated Category: Social Hx (3) Chronic pain syndrome: Code(s): G89.4 - Chronic pain syndrome Category: Medical (4) Fibromyalgia: Code(s): M79.7 - Fibromyalgia Category: Medical (5) Left knee pain: Code(s): M25.562 - Pain in left knee Category: Medical (6) Arthritis of left knee: Code(s): M17.12 - Unilateral primary osteoarthritis, left knee Category: Medical Plan combination of heavy smoking, uncontrolled diabetes, osteoarthritis and diabet es arthritis probably result in his widespread pain. Fibromyalgia cannot be excluded either. He continues gabapentin maximal doses. He was started on methocarbamol 750 mg t.i.d. help his pain. Patient denied that he received this medication. We checked with the pharmacy and looks like that patient never picked up this medication. We will give him a call and remind him that he needs to leaf size picker this medication. To help his pain in the left knee I offered him and I will perform diagnostic genicular nerve block. Infrapatellar saphenous nerve block versus suprapatellar saphenous nerve block can not be tried to treat the pain of this patient in the knee. Coding Level of Care Code Est Pt Level 3 (43585) Diagnoses Diabetic arthropathy E11.618 Smoking addiction F17.200 Chronic pain syndrome G89.4 Fibromyalgia M79.7 Left knee pain M25.562 Arthritis of left knee M17.12
[2024-11-04 14:52] VITALS: BP 177/88; PULSE 72; RESP 16; O2SAT 99; BMI 32.8
--- OUTSIDE RECORDS SUMMARY | 2024-11-04 16:20 | XMS_ITS | Encounter Summary ---
Author Organization [facility] Address [address] [place] [address] Care Team Providers Care Financial Services Agent Name Role Phone Oneida Griffin Primary Care Provider [phone] Savanna Bhatt SENIOR PRODUCT DEVELOPMENT SCIENTIST Unavailable Encounter Details Date Type Department Care Team (Latest Contact Info) Description 10/18/2024 Travel Social History Tobacco Use Types Packs/Day Years Used Date Smoking Tobacco: Every Day Cigarettes Passive Smoke Exposure: Current Smokeless Tobacco: Never Alcohol Use Standard Drinks/Week Comments Never 0 (1 standard drink = 0.6 oz pur e alcohol) Depression Answer Date Recorded Patient Health Questionnaire-9 Score 12 02/20/2024 Patient Health Questionnaire-9 Score 12 02/20/2024 Last PHQ-9: Questionnaire Data Not on file 0 02/20/2024 Housing Stability Answer Date Recorded What is your housing situation today? I have [place] 05/01/[address] you li ve. Do you have problems with any of the following? None of the above 05/01/2024 Food Insecurity Answer Date Recorded Within the past 12 months, y ou worried that your food would run out before you got money to buy more: Sometimes True 2023 Within the past 12 months,th e food you bought just didn't last and you didn't have enough money to get more: Sometimes True 05/01/2024 Transportation Answer Date Recorded In the past 12 months, has l ack of transportation kept you from medical appts, meetings, work or from getting things needed for daily living? No 05/01/2024 Utilities Answer Date Recorded In the past 12 months, has t he electric, gas, oil or water company threatened to shut off services in your home? No 05/01/2024 Depression Answer Date Recorded Patient Health Questionnaire-2 Score 6 02/20/2024 Internet Access Answer Date Recorded Internet Access Q1 No 10/09/2024 Internet Access Q2 I cannot afford it 10/09/2024 Sex and Gender Information Value Date Recorded Sex Assigned at Male 08/01/2022 10:31 AM EDT Legal Sex Male 10:31 AM EDT Gender Identity Male 08/01/2022 10:31 AM EDT Sexual Orientation Straight 08/01/2022 10 :31 AM EDT documented as of this encounter Plan of Treatment Upcoming Encounters Date Type Department Care Team (Late st Contact Info) Description 11/08/2024 11:30 AM EST Clinical Support [facility] [address] [place] [address] Flavia Gunter RN [address] [place] [address] documented as of this encounter Goals Goal Patient Goal Type Associated Problems Recent Progress Patient-Stated? Author Record your blood pressure once per day Blood Pressure No Monica Orourke Blood Pressure < 140/90 Blood Pressure 144/91(2024 3:00 PM EST) No Monica Orourke Patient will adhere to medication regimen General No Monica Orourke Hemoglobin A1c < 7 Result Component 8.9( 3:37 PM EST) No Monica Orourke documented as of this encounter Visit Diagnoses Not on filedocumented in this encounter Additional Health Concerns Assessment Noted Time PHQ-9 Depression Total Score: 12 024 9:53 AM EDT documented as of this encounter Care Teams Financial Services Agent Relationship Specialty Start Date End Date Oneida Griffin ANP [address] [place] [address] PCP - General Family Medicine 09/14/20 Savanna Bhatt NP [address] [place] [address] Urology 08/21/24 documented as of this encounter
--- OUTSIDE RECORDS SUMMARY | 2024-11-04 16:20 | XMS_ITS | Encounter Summary ---
Author Organization [facility] Address [address] [place] [address] Care Team Providers Care Plumber Apprentice Name Role Phone Oneida Griffin Primary Care Provider [phone] Julio Rahman Unavailable Unavailable Savanna Bhatt OPTICAL GOODS WORKER Unavailable Reason for Visit * Reason Onset Date Comments PT1 10/03/2023 Encounter Details Date Type Department Care Team (Late st Contact Info) Description 10/03/2023 Telephone [facility]INE [address] [place], [place] [phone] Oneida Griffin ANP [address] [place], [place] [phone] PT1 Social History Tobacco Use Types Packs/Day Years Used Date Smoking Tobacco: Every Day Cigarettes Passive Smoke Exposure: Current Smokeless Tobacco: Never Alcohol Use Standard Drinks/Week Comments Never 0 (1 standard drink = 0.6 oz pur e alcohol) Depression Answer Date Recorded Patient Health Questionnaire-9 Score 14 08/21/2023 Patient Health Questionnaire-9 Score 14 08/21/2023 Last PHQ-9: Questionnaire Data Not on file 1 10/21/2022 Housing Stability Answer Date Recorded What is your housing situation today? I have [place] 07/17/[address] you li ve. Do you have problems with any of the following? None of the above 07/17/2023 Food Insecurity Answer Date Recorded Within the past 12 months, y ou worried that your food would run out before you got money to buy more: Never True 07/17/2023 Within the past 12 months,th e food you bought just didn't last and you didn't have enough money to get more: Never True Transportation Answer Date Recorded In the past 12 months, has l ack of transportation kept you from medical appts, meetings, work or from getting things needed for daily living? No 07/17/2023 Utilities Answer Date Recorded In the past 12 months, has t he electric, gas, oil or water company threatened to shut off services in your home? No 07/17/2023 Depression Answer Date Recorded Patient Health Questionnaire-2 Score 5 08/21/2023 Sex and Gender Information Value Date Recorded Sex Assigned at Male 08/01/2022 10:31 AM EDT Legal Sex Male 10:31 AM EDT Gender Identity Male 08/01/2022 10:31 AM EDT Sexual Orientation Straight 08/01/2022 10 :31 AM EDT documented as of this encounter Miscellaneous Notes * Telephone Encounter - Rayshawn Rizvi - 10/03/2023 11:09 AM EST PT1 needed Date: 10/09/23 Time: 2:30 Visits: 4 times monthly Address: [address] [place] [address] Facility: [facility] Wheel Chair: no Service Promoter Salesperson Needed: no documented in this encounter Plan of Treatment Upcoming Encounters Date Type Department Care Team (Late st Contact Info) Description 11/08/2024 11:30 AM EST Clinical Support [facility] [address] [place] [address] Flavia Gunter RN [address] [place] [address] documented as of this encounter Goals Goal [...] Assessment Noted Time PHQ-9 Depression Total Score: 14 023 9:15 AM EST documented as of this encounter Care Teams Plumber Apprentice Relationship Specialty Start Date End Date Oneida Griffin ANP [address] [place] [address] PCP - General Family Medicine 09/14/20 Julio Rahman FNP [address] [place] [address] Nurse Practitioner Family Medicine 08/21/23 08/20/24 Savanna Bhatt NP [address] [place] [address] Drive [address] [place] [address] Urology 08/21/24 documented as of this encounter
--- OUTSIDE RECORDS SUMMARY | 2024-11-04 16:20 | XMS_ITS | Encounter Summary ---
Author Organization [employer] [facility] Address [address] [place] [address] Care Team Providers Care Supervisor Tank House Name Role Phone Oneida Griffin Primary Care Provider [phone] Julio Rahman STRUCTURAL ENGINEERING TECHNICIAN Unavailable Unavailable Savanna Bhatt FLAME GOUGER Unavailable Reason for Visit * Reason Onset Date Comments Nurse Triage 10/11/2023 Encounter Details Date Type Department Care Team (Late st Contact Info) Description 10/11/2023 Telephone [facility] [address] [place] [address] Oneida Griffin ANP [address] [place], [place] [phone] Nurse Triage Social History Tobacco Use Types Packs/Day Years [...] encounter Miscellaneous Notes * Telephone Encounter - Tish Foster RN - 10/11/2023 5:05 PM EST Triage call Pt reports blood sugars have been higher for last week or so. Pt reports BS this morning was in the 200s, last night 10/10/23 295, day before 10/09/23 had a 300 BS. Pt is asymptomatic with these blood sugars. Pt reports drinking adequate water. Pt reports a medication that was new that cameand is not sure how to take it. Pt is taking glypizide 10 mg daily as prescribed and the medicationthat came was rybelsus 3mg . Pt was afraid to take it reports, I wasn't told about it . Directionsare reviewed with Pt. Take rybelsus 3mg tablet daily 30min before taking glypizide every day for 30days. After 30 days the medication will be increased to 7mg tablets to be taken daily. Pt verbalized understanding and will start taking this medication tomorrow morning. Pt is advised to call with any further questions and Pt agreed. Pt was unable to go to PT apt due to transportation problems. Ptis advised to call to see if possible to set up PT -1 transportation and Pt agrees to try . Pt agrees with disposition and will come to [facility] if needs to . Protocol Used: Diabetes - High Blood Sugar (Adult) Protocol-Based Disposition: Home Care Positive Triage Question: * Blood glucose 240 - 300 mg/dL (13.3 - 16.7 mmol/L) * All higher-acuity triage questions were negative Care Advice Discussed: * High Blood Sugar (Hyperglycemia) * Treatment - Liquids * Diabetes Pills * Measure and Record Your Blood Glucose * Daily Blood Glucose Goals * Reasons To Call Back - Blood glucose over 300 mg/dL (16.7 mmol/L), two or more times in a row. - Urine ketones become moderate or large (or more than 1+); if you check blood ketones, blood ketone test is over 1.4 mmol/L - Vomiting lasting over 4 hours or unable to drink any fluids - Rapid breathing occurs - You have more questions - You become worse * Telephone Encounter - Rayshawn Rizvi - 10/11/2023 4:28 PM EST Symptom: High Blood Sugar - Caller Reports Outcome: Talk to a nurse or provider within 15 minutes Reason: Known blood sugar above 300 documented in this encounter Plan of Treatment Upcoming Encounters Date Type Department Care Team (Late st Contact Info) Description 11/08/2024 11:30 AM EST Clinical Support [facility] [address] [place] [phone] Flavia Gunter RN [address] [place] [id number] documented as of this encounter Goals Goal [...] Noted Time PHQ-9 Depression Total Score: 14 08/21/ 023 9:15 AM EST documented as of this encounter Care Teams Supervisor Tank House Relationship Specialty Start Date End Date Oneida Griffin ANP [address] [place] [address] PCP - General Family Medicine 09/14/20 Julio Rahman FNP [address] [place] [address] Nurse Practitioner Family Medicine 08/21/23 08/20/24 Savanna Bhatt NP [address] [place] [address] Drive [address] [place] [address] Urology 08/21/24 documented as of this encounter
--- OUTSIDE RECORDS SUMMARY | 2024-11-04 16:20 | XMS_ITS | Encounter Summary ---
Author Organization [employer] [facility] Address [address] [facility] 7t [place] [address] Care Team Providers Care Tray Casting Machine Operator Name Role Phone Oneida Griffin Primary Care Provider Julio Rahman Unavailable Unavailable Savanna Bhatt LABEL OPERATOR Unavailable Reason for Visit * Reason Onset Date Comments Med Refill 01/24/2023 Encounter Details Date Type Department Care Team (Late st Contact Info) Description 01/24/2023 Telephone [facility] MEDICINE [address] [place] [address] Oneida Griffin ANP [address] [place], [place] [phone] Med Refill Social History Tobacco Use Types Packs/Day Years Used Date Smoking Tobacco: Every Day Cigarettes Passive Smoke Exposure: Current Smokeless Tobacco: Never Alcohol Use Standard Drinks/Week Comments Never 0 (1 standard drink = 0.6 oz pur e alcohol) PHQ-2 Answer Date Recorded Patient Health Questionnaire-2 Score 2 12/19/2022 Sex and Gender Information Value Date Recorded Sex Assigned at Male 08/01/2022 10:31 AM EDT Legal Sex Male 10:31 AM EDT Gender Identity Male 08/01/2022 10:31 AM EDT Sexual Orientation Straight 08/01/2022 10 :31 AM EDT documented as of this encounter Miscellaneous Notes * Telephone Encounter - Mckenna Calderón LPN - 01/24/2023 11:51 AM EDT Med has been pended to pcp today * Telephone Encounter - Alhajipippa Jered Robles - 01/24/2023 11:27 AM EDT Tc from pt requesting med refill on sildenafil (Viagra) 100 MG tablet Please sent to [facility] [place], [place] - [address] [place] [address] documented in this encounter Plan of Treatment Upcoming Encounters Date Type Department Care Team (Late st Contact Info) Description 11/08/2024 11:30 AM EST Clinical Support [facility] MEDICINE [address] [place] [address] Flavia Gunter RN [address] [place] [address] documented as of this encounter Visit Diagnoses Not on filedocumented in this encounter Additional Health Concerns Assessment Noted Time PHQ-9 Depression Total Score: 8 12/20/19 9:49 AM EDT documented as of this encounter Care Teams Tray Casting Machine Operator Relationship Specialty Start Date End Date Oneida Griffin ANP [address] [place] [address] PCP - General Family Medicine 09/14/20 Julio Rahman FNP [address] [place] [address] Nurse Practitioner Family Medicine 08/21/23 08/20/24 Savanna Bhatt NP [address] [place] [address] Urology 08/21/24 documented as of this encounter
--- OUTSIDE RECORDS SUMMARY | 2024-11-04 16:20 | XMS_ITS | Encounter Summary ---
Author Organization [employer] [facility] Address [address] [facility] 7t [place] [address] Care Team Providers Care Milk Powder Grinder Name Role Phone Oneida Griffin Primary Care Provider [phone] Julio Rahman ESCROW CLOSER Unavailable Unavailable Savanna Bhatt PLASTIC TOP ASSEMBLER Unavailable Reason for Visit * Reason Onset Date Comments triage 01/10/2023 Encounter Details Date Type Department Care Team (Late st Contact Info) Description 01/10/2023 Telephone [facility] MEDICINE [address] [place] [address] Oneida Griffin ANP [address] [place] [address] triage Social History Tobacco Use Types Packs/Day Years [...] Orientation Straight 08/01/2022 10 :31 AM EDT COVID-19 Exposure Response Date Recorded In the last 10 days, have yo u been in contact with someone who was confirmed or suspected to have Coronavirus/COVID-19? No / Unsure 12/20/2022 1:40 PM EDT documented as of this encounter Miscellaneous Notes * Telephone Encounter - Arlin White RN - 01/13/2023 2:23 PM EDT T/C returned to pt re below message. Pt requesting abx stating that the mass is back and pain meds as he has bee having pain around site and on his shoulder and stomach. Pt verbalized understanding and denied having any further questions or concerns at this time. * Telephone Encounter - Jessica Pascal RN - 01/10/2023 1:56 PM EDT Called pt. He states that he is looking for antibiotics for a cyst on his left thigh. Pt. Last cystwas 12/20/22. Cyst is red swollen and slightly draining - bloody yellow pus. No fever. Pt. Was on Clindamycin 300mg 1 Capsule three times a day x 7 days from abcess at office visit 12/20/22. PCP told pt. To call back if abcess came back and he would refill med. Pt has abcess back, size of a kidney dumas. Pt. Does not leave room where he rents a room and is requesting refill on Antibiotic. I did advise pt. That he can go to walk in today until 730pm or tomorrow from 830am-730pm. Pt. States only kyarae is his Aunt and his uncle is in the hospital so he does not want to bother her . Offered Uber butpt. Declines. Please let me know if yopu are willing to refill RX. Or if pt. Needs to be seen for anew RX. Pt. Is allergic to PCN. Protocol Used: Boil (Skin Abscess) (Adult) Protocol-Based Disposition: See in Office or Video Visit Today Positive Triage Question: * Boil and diabetes mellitus or weak immune system (e.g., HIV positive, cancer chemo, splenectomy, organ transplant, chronic steroids) * All higher-acuity triage questions were negative Care Advice Discussed: * Reassurance and Education - Boil * Treatment - General * Treatment for a Boil - Apply Moist Heat * Treatment - Apply Antibiotic Ointment * Treatment for a Boil - Incision and Drainage by a Healthcare Provider * Pain Medicines * Telephone Encounter - Jason Ferreiraos - 01/10/2023 11:20 AM EDT Symptom: Skin Infection - Caller Reports Outcome: Schedule a same-day appointment or talk to a nurse or provider today Reason: No high acuity concerns reported by caller The caller accepted this outcome documented in this encounter Plan of Treatment Upcoming Encounters Date Type Department Care Team (Late st Contact Info) Description 11/08/2024 11:30 AM EST Clinical Support [facility] MEDICINE [address] [place] [address] Flavia Gunter RN [address] [place] [address] documented as of this encounter Visit Diagnoses Diagnosis Abscess of left leg documented in this encounter Additional Health Concerns Assessment Noted Time PHQ-9 Depression Total Score: 8 12/20/19 9:49 AM EDT documented as of this encounter Care Teams Milk Powder Grinder Relationship Specialty Start Date End Date Oneida Griffin ANP [address] [place] [address] PCP - General Family Medicine 09/14/20 Julio Rahman FNP [address] [place] [address] Nurse Practitioner Family Medicine 08/21/23 08/20/24 Savanna Bhatt NP [address] [place] [address] Urology 08/21/24 documented as of this encounter
--- OUTSIDE RECORDS SUMMARY | 2024-11-04 16:20 | XMS_ITS | Encounter Summary ---
Author Organization [employer] [facility] Address [address] 7t [place] [address] Care Team Providers Care Custodial Aide Name Role Phone Mariana Fowler Primary Care Provider [phone] Savanna Bhatt BOSOM PRESSER Unavailable Encounter Details Date Type Department Care Team (Late st Contact Info) Description 10/17/2024 Orders Only [facility] External Provider, [facility] Social History Tobacco Use Types Packs/Day Years [...] t he electric, gas, oil or water [employer] threatened to shut off services in your [...] Description 11/08/2024 11:30 AM EST Clinical Support [facility] MEDICINE [address] [place] [address] Flavia Gunter RN [address] [place] [address] documented as of this encounter Goals Goal [...] Monica Orourke documented as of this encounter Procedures Procedure Name Priority Date/Time Associated Diagnosis Comments US ABDOMEN COMPLETE Routine 10/19/2024 8 :06 AM EST documented in this encounter Results * US Abdomen Complete (10/19/2024 8:06 AM EST) Anatomical Region Laterality Modality Abdomen Ultrasound 10/19/2024 8:06 AM EST Narrative 10/19/2024 8:08 AM EST ? [facility] ?[address] ?[place] [address] ? Ultrasound Report ? Signed ? Patient: Florentin,Nii ?MR#: [id number] ? : 1970 ?Acct:[id number] ? Age/Sex: 54 / M ?ADM Date: 01/16/25 ? Loc: HO.US ? Attending Dr: Gerry Urbina MD ? Ordering Physician: Gerry Urbina MD ?? Date of Service: 10/17/24 ?? Procedure(s): US abdomen complete ?? Accession Number(s): [id number] ? cc: Gerry Urbina MD; MARIANA FOWLER NP ? CLINICAL HISTORY: R10.9 - Unspecified abdominal pain ? Exam: Ultrasound of the abdomen complete. ? Comparison: CT abdomen and pelvis January 11, 2024. ? Findings: ? Diffuse increased echotexture throughout the liver without focal lesion or ?? intrahepatic biliary ductal dilatation. ?? Common bile duct is within normal limits. ?? Echogenic stones are seen within the gallbladder without gallbladder wall ?? thickening or pericholecystic fluid. Negative sonographic Stubbs's sign. ?? Spleen and pancreas are unremarkable. ?? Right kidney measures 11.1 cm in long axis. Right kidney is of normal ?? echotexture without focal lesion, nephrolithiasis, hydronephrosis. ?? Left kidney measures 9.9 cm in long axis. Several simple cysts within the ?? left kidney measuring up to 2.2 cm in size. No hydronephrosis. ?? Aorta and inferior vena cava are patent. ?? No free fluid. ? Impression: ? 1. Echogenic liver. This can be seen with fatty infiltration or medical ?? liver disease. ?? 2. Cholelithiasis without ultrasound findings of cholecystitis. ?? 3. Diminutive left kidney with simple left renal cysts. ? This document has been electronically signed by: Nehemias Milner MD on ?? 10/19/2024 08:06:30 ? Dictated By: ?Nehemias Milner MD ? Signed By: ?<Electronically signed by Nehemias Milner MD in OV> ? 10/19/24 0807 ? DD/ 0806 ? TD/TT: 10/19/24 0806 ? Bituminous Distributor Operator: ? Procedure Note Livan Alves - 10/19/[address] [address] Ultrasound Report Signed Patient: Nii LermaMR#: [id number] : 1970Acct:[id number] Age/Sex: 54 / MADM Date: 10/17/24 Loc: HO.US Attending Dr: Gerry Urbina MD Ordering Physician: Gerry Urbina MD Date of Service: 10/17/24 Procedure(s): US abdomen complete Accession Number(s): [id number] cc: Gerry Urbina MD; MARIANA FOWLER NP CLINICAL HISTORY: R10.9 - Unspecified abdominal pain Exam: Ultrasound of the abdomen complete. Comparison: CT abdomen and pelvis January 11, 2024. Findings: Diffuse increased echotexture throughout the liver without focal lesion or intrahepatic biliary ductal dilatation. Common bile duct is within normal limits. Echogenic stones are seen within the gallbladder without gallbladder wall thickening or pericholecystic fluid. Negative sonographic Stubbs's sign. Spleen and pancreas are unremarkable. Right kidney measures 11.1 cm in long axis. Right kidney is of normal echotexture without focal lesion, nephrolithiasis, hydronephrosis. Left kidney measures 9.9 cm in long axis. Several simple cysts within the left kidney measuring up to 2.2 cm in size. No hydronephrosis. Aorta and inferior vena cava are patent. No free fluid. Impression: 1. Echogenic liver. This can be seen with fatty infiltration or medical liver disease. 2. Cholelithiasis without ultrasound findings of cholecystitis. 3. Diminutive left kidney with simple left renal cysts. This document has been electronically signed by: Nehemias Milner MD on 10/19/2024 08:06:30 Dictated By: Nehemias Milner MD Signed By: <Electronically signed by Nehemias Milner MD in OV> 10/19/24 0807 DD/ 0806 TD/TT: 10/19/24 0806 Bituminous Distributor Operator: [facility] External Provider IMG US PROCEDURES Final Result documented in this encounter Visit Diagnoses Not on filedocumented in this encounter Additional Health Concerns Assessment Noted Time PHQ-9 Depression Total Score: 12 024 9:53 AM EDT documented as of this encounter Care Teams Custodial Aide Relationship Specialty Start Date End Date Mariana Fowler ANP [address] [place] [address] PCP - General Family Medicine 09/14/20 Savanna Bhatt NP [address] [place] [address] Urology 08/21/24 documented as of this encounter
--- OUTSIDE RECORDS SUMMARY | 2024-11-04 16:20 | XMS_ITS | Encounter Summary ---
Author Organization [employer] [facility] Address [address] [facility] 7t [place] [address] Care Team Providers Care First Officer And Flight Instructor Name Role Phone Oneida Griffin Primary Care Provider [phone] Savanna Bhatt MENU PLANNER Unavailable Reason for Visit * Reason Comments Annual Exam Encounter Details Date Type Department Care Team (Latest Contact Info) Description 10/18/2024 2:30 PM EST Office Visit [facility] MEDICINE [address] [place], [place] [phone] Oneida Griffin ANP [address] [place], [place] [phone] Type 2 diabetes mellitus with hyperlipidemia (CMS/HCC) (CMS/HCC) (Primary Dx); Whole body pain Social History Tobacco Use Types Packs/Day Years Used Date Smoking Tobacco: Every Day Cigarettes Passive Smoke Exposure: Current Smokeless Tobacco: Never Tobacco Cessation:Ready to Q uit: Not Asked; Counseling Given: Not Answered Alcohol Use Standard Drinks/Week Comments Never 0 [...] AM EDT documented as of this encounter Last Filed Vital Signs Vital Sign Reading Time Taken Comments Blood Pressure 144/91 10/18/2024 3:00 PM EST Pulse 75 10/18/2024 3:00 PM EST Temperature 36.6 ??C (97.8 ??F) 10/18/2024 3:00 PM ES T Respiratory Rate 14 10/18/2024 3:00 PM EST Oxygen Saturation 98% 10/18/2024 3:00 PM EST Inhaled Oxygen Concentration - - Weight 97.8 kg (215 lb 9.6 oz) 10/18/2024 3:00 P M EST Height - - Body Mass Index 32.78 08/21/2024 3:04 PM EST documented in this encounter Plan of Treatment Upcoming Encounters Date Type Department Care Team (Late st Contact Info) Description 11/08/2024 11:30 AM EST Clinical Support [facility] MEDICINE [address] [place], [place] [phone] Flavia Gunter RN [address] [place], [place] [phone] documented as of this encounter Goals Goal Patient Goal Type Associated Problems Recent Progress Patient-Stated? Author Record your blood pressure once per day Blood Pressure No Haven Anderson Blood Pressure < 140/90 Blood Pressure 144/91(2024 3:00 PM EST) No Haven Anderson Patient will adhere to medication regimen General No Monica Orourke Hemoglobin A1c < 7 Result Component 8.9( 3:37 PM EST) No Monica Orourke documented as of this encounter Procedures Procedure Name Priority Date/Time Associated Diagnosis Comments POCT GLYCATED HEMOGLOBIN, TOTAL Routine 10/18/2024 3:37 PM EST Type 2 diabetes mellitus with hyperlipidemia (CMS/HCC) ([facility]) POCT GLUCOSE Routine 10/18/2024 3:08 PM EST Type 2 diabetes mellitus with hyperlipidemia ([facility]/HCC) ([facility]) documented in this encounter Results * (ABNORMAL) POCT HGB A1C (10/18/2024 3:37 PM EST) Hemoglobin A1C 8.9(A) 4.0 - 6.0 % QC Media Lot # [id number] Lot# Expiration Date , Blood 10/18/2024 3:37 PM EST Result Ian MEDRANO POINT OF CARE TEST ENTER/EDIT OR DERABLES Final Result * POCT Glucose (10/18/2024 3:08 PM EST) Glucose Blood, POC 174 60 - 200 mg/dL QC Media Lot # [id number] Lot# Expiration Date ,025 Blood Capillary blood specimen / Unknown 10/18/2024 3:08 PM EST us Oneida MEDRANO POINT OF CARE TEST ENTER/EDIT OR DERABLES Final Result documented in this encounter Visit Diagnoses Diagnosis Type 2 diabetes mellitus with hyperlipidemia (CMS/HCC) ([facility])- Primary Whole body pain documented in this encounter Additional Health Concerns Assessment Noted Time PHQ-9 Depression Total Score: 12 024 9:53 AM EDT documented as of this encounter Care Teams First Officer And Flight Instructor Relationship Specialty Start Date End Date Oneida Griffin ANP [address] [place] [address] PCP - General Family Medicine 09/14/20 Savanna Bhatt NP [address] [facility] [address] [place] [address] Urology 08/21/24 documented as of this encounter
--- OUTSIDE RECORDS SUMMARY | 2024-11-04 16:21 | XMS_ITS | Encounter Summary ---
Author Organization [facility] Address [address] [place] [address] Care Team Providers Care Manager Life Insurance Name Role Phone Unavailable Primary Care Provider Unavailabl e Reason for Visit * Reason Comments Follow Up Encounter Details Date Type Department Care Team (Latest Contact Info) Description 10/31/2024 1:00 PM EST Behavioral Health Visit [facility] [address] [place] [phone] Geraldine Garcia APRN [address] [facility] [place] [address] Severe episode of recurrent major depressive disorder, with psychotic features (HCC-CMS); Anxiety Social History Tobacco Use Types Packs/Day Years Used Date Smoking Tobacco: Every Day Cigarettes Started: 1983 Smokeless Tobacco: Never Comments:Has quit several ti mes, longest duration being 3 years. Currently not interested in quitting. Alcohol Use Standard Drinks/Week Comments Not Currently 0 (1 standard drink = 0.6 oz pur e alcohol) Social Connections Answer Date Recorded Connectedness 0 06/13/2024 Financial Resource Strain Answer Date R ecorded Financial Resource Strain 0 2023 Stress Answer Date Recorded Stress 0 05/08/2024 Physical Activity Answer Date Recorded Physical Activity 0 05/08/2024 Food Insecurity Answer Date Recorded Food 0 06/27/2024 Transportation Needs Answer Date Record ed Transportation 0 05/08/2024 Housing Stability Answer Date Recorded Housing 0 05/08/2024 Safety and Environment Answer Date Edin rded Safety 0 05/08/2024 Utilities Answer Date Recorded Utilities 0 05/08/2024 Employment Answer Date Recorded Stress 0 06/13/2024 Sex and Gender Information Value Date Recorded Sex Assigned at Not on file Legal Sex Male 4:34 AM PDT Gender Identity Not on file Sexual Orientation Not on file documented as of this encounter Progress Notes * Geraldine Garcia APRN - 10/31/2024 4:31 PM ESTAssociated Problem(s): Recurrent major depression (HCC-CMS) Severe depression with psychotic features - Assessment: Improving - Plan: - Continue current medications: Abilify 10 mg, Continue Wellbutrin XL 300 mg, Continue Hydroxyzine HCL - Monitor patient's mood and any changes in symptoms. - RTC in 60 days * Geraldine Garcia APRN - 10/31/2024 1:34 PM EST [facility] OFFICE VISIT Name: Nii Woods : 1970 PCP: No primary care provider on file. ASSESSMENT AND PLAN Problem List Items Addressed This Visit BH/MH Problems Anxiety Relevant Medications hydrOXYzine HCL (ATARAX) 25 mg tablet Recurrent major depression (HCC-CMS) Severe depression with psychotic features - Assessment: Improving - Plan: - Continue current medications: Abilify 10 mg, Continue Wellbutrin XL 300 mg, Continue Hydroxyzine HCL - Monitor patient's mood and any changes in symptoms. - RTC in 60 days Relevant Medications ARIPiprazole (ABILIFY) 10 mg tablet buPROPion HCL (WELLBUTRIN XL) 300 mg 24 hr tablet Follow-up: Return in about 2 months (around 12/29/2024). Geraldine Garica APRN 10/31/2024 1:34 PM EST REASON FOR VISIT Chief Complaint Patient presents with Follow Up HPI/ROS Patient seen for medication management, reports that mood is good, reports that he was started on Rybelsus ( semaglutide ) reports that he felt depressed, tried and was instead over eating on the medication, he stopped and feels better now. No issue with sleep but mostly sleeps during the day. Patient denies SI/HI/plan, denies anxiety and depressed mood, denies AVH, reports medication compliance. PHQ No data to display Review of Systems Constitutional: Negative. HENT: Negative. Respiratory: Negative. Cardiovascular: Negative. Gastrointestinal: Negative. Endocrine: Negative. Genitourinary: Negative. Musculoskeletal: Positive for back pain. Skin: Negative. Allergic/Immunologic: Negative. Neurological: Positive for numbness. Hematological: Negative. Psychiatric/Behavioral: Positive for sleep disturbance. VITALS: There were no vitals filed for this visit. Physical Exam Neurological: Mental Status: He is alert and oriented to person, place, and time. Psychiatric: Attention and Perception: Attention and perception normal. Mood and Affect: Mood and affect normal. Behavior: Behavior normal. Thought Content: Thought content normal. Judgment: Judgment normal. Visit conducted via Telehealth with audio only.. Telehealth Provided Other than in Patient's Home. TELEMEDICINE ATTESTATION I verified the patient by the patients name, date of and insurance ID. I disclosed my identity and credentials. I reviewed, as appropriate, relevant history and medical records with the patient. I determined that I could provide the same standard of care and if I determined I could not do that during the telemedicine visit, I directed the patient to seek in person care. I discussed confidentiality rights with the patient. I disclosed my location and discussed the patient location. I discussed how the patient can see a clinician in-person in the event of an emergency or as otherwise needed. . Geraldine Garcia APRN 10/31/2024 documented in this encounter Plan of Treatment Upcoming Encounters Date Type Department Care Team ([facility] st Contact Info) Description 12/26/2024 1:30 PM EDT Behavioral Health Visit [facility] [address] [place] [phone] Geraldine Garcia APRN [address] [facility] [place] [address] documented as of this encounter Visit Diagnoses Diagnosis Severe episode of recurrent major depressive disorder, with psychotic features ([facility]) Anxiety Anxiety state, unspecified documented in this encounter
--- OUTSIDE RECORDS SUMMARY | 2024-11-04 16:21 | XMS_ITS | Encounter Summary ---
Author Organization [employer] [facility] Address [address] 7t [place] [address] Care Team Providers Care Account Group Supervisor Name Role Phone Oneida Griffin Primary Care Provider [phone] Julio Rahman Unavailable Unavailable Savanna Bhatt RUG HOOKER HAND Unavailable Reason for Visit * Reason Onset Date Comments chung back requested 12/26/2022 Encounter Details Date Type Department Care Team ([facility] st Contact Info) Description 12/26/2022 Telephone [facility] MEDICINE [address] [place], [place] [phone] Oneida Griffin ANP [address] [place], [place] [phone] chung back requested Social History Tobacco Use Types Packs/Day Years [...] suspected to have Coronavirus/COVID-19? No / Unsure 04/03/2023 1:48 PM EDT documented as of this encounter Miscellaneous Notes * Telephone Encounter - Jean-Paul Vogt - 12/26/2022 12:19 PM EDT Tc from pt returning call, states received a call form [place] of Dr. Rahman in regards to TELE BH RV appt. Please contact at [phone] documented in this encounter Plan of Treatment Upcoming Encounters Date Type Department Care Team (Late st Contact Info) Description 11/08/2024 11:30 AM EST Clinical Support [facility] MEDICINE [address] [place], [place] [phone] Flavia Gunter, SANTI [address] [place], [place] [phone] documented as of this encounter Goals Goal Patient Goal Type Associated Problems Recent Progress Patient-Stated? Author Record your blood pressure once per day Blood Pressure No Monica Orourke Blood Pressure < 140/90 Blood Pressure 144/91(2024 3:00 PM EST) No Monica Orourke Patient will adhere to medication regimen General No IdaalejandroMonica faust Hemoglobin A1c < 7 Result Component 8.9( 3:37 PM EST) No OsmanyAftab faustAnderson documented as of this encounter Visit Diagnoses Not on filedocumented in this encounter Additional Health Concerns Assessment Noted Time PHQ-9 Depression Total Score: 8 12/20/19 9:49 AM EDT documented as of this encounter Care Teams Account Group Supervisor Relationship Specialty Start Date End Date Oneida Griffin ANP [address] [place] [address] PCP - General Family Medicine 09/14/20 Julio Rahman FNP [address] [place] [address] Nurse Practitioner Family Medicine 08/21/23 08/20/24 Savanna Bhatt NP [address] [place] [address] Drive [address] [place] [address] Urology 08/21/24 documented as of this encounter
--- OUTSIDE RECORDS SUMMARY | 2024-11-04 16:21 | XMS_ITS | Encounter Summary ---
Author Organization [employer] Address [address] [facility] 7t [place] [address] Care Team Providers Care Top Precipitator Operator Name Role Phone Oneida Griffin Primary Care Provider [phone] Savanna Bhatt HOT WIRE GLASS TUBE CUTTER Unavailable Reason for Visit * Reason Comments Care Coordination CHW outreach for SDO H PT-1 and food needs-referral completed Encounter Details Date Type Department Care Team (Latest Contact Info) Description 10/15/2024 Patient Outreach [facility]INE [address] [place] [address] Oneida Griffin ANP [address] [place] [address] Care Coordination (CHW outreach for SDOH PT-1 and food needs-referral completed /) Social History Tobacco Use Types Packs/Day Years [...] AM EDT documented as of this encounter Progress Notes * Isiah Brennan - 10/15/2024 11:19 AM EST CHW Isiah Brennan, placed outbound call to patient for assistance with SDOH as a referral was received by the provider. Patient's name and were confirmed. Patient screened positive for the following SDOH food insecurities. CHW referral patient to the local list of pantries in the area for help. PT-1 requested was send out in behalf of patient for futures appt. Patient verbalizes understandin g, and able to agree with plan to follow up. Patient educated on extended clinic hours on Mondays through Wednesdays, and Walk-In Urgent Care Located in [facility] of [facility]. Patient provided with after-hours line for [facility], , which offer night time triage service and option to transfer to phonograph needle tip maker provider if needed. documented in this encounter Plan of Treatment Upcoming Encounters Date Type Department Care Team (Late st Contact Info) Description 11/08/2024 11:30 AM EST Clinical Support [facility] [address] [place] [phone] Flavia Gunter RN [address] [place] [address] documented as of this encounter Goals Goal [...] documented as of this encounter Care Teams Top Precipitator Operator Relationship Specialty Start Date End Date Oneida Griffin ANP [address] [place] [address] PCP - General Family Medicine 09/14/20 Savanna Bhatt NP [address] [place] [address] Urology 08/21/24 documented as of this encounter
--- OUTSIDE RECORDS SUMMARY | 2024-11-04 16:21 | XMS_ITS | Encounter Summary ---
Author Organization [employer] [facility] Address [address] [facility] 7t [place] [address] Care Team Providers Care Strip Feeder Name Role Phone Oneida Griffin Primary Care Provider [phone] Julio Rahman Unavailable Unavailable Savanna Bhatt CONCRETE CARPENTER Unavailable Reason for Visit * Reason Comments Med Refill Encounter Details Date Type Department Care Team (Late st Contact Info) Description 02/07/2023 Refill [facility] [address] [place] [address] Oneida Griffin ANP [address] [place] [address] Social History Tobacco Use Types Packs/Day Years [...] suspected to have Coronavirus/COVID-19? No / Unsure 01/31/2023 8:50 AM EDT documented as of this encounter Plan of Treatment Upcoming Encounters Date Type Department Care Team (Late Contact Info) Description 11/08/2024 11:30 AM EST Clinical Support [facility] [address] [place] [address] Flavia Gunter, RN [address] [place] [address] documented as of this encounter Visit Diagnoses Not on filedocumented in this encounter Additional Health Concerns Assessment Noted Time PHQ-9 Depression Total Score: 8 12/20/19 9:49 AM EDT documented as of this encounter Care Teams Strip Feeder Relationship Specialty Start Date End Date Oneida Griffin ANP [address] [place] [phone] PCP - General Family Medicine 09/14/20 Julio Rahman FNP [address] [place] [address] Nurse Practitioner Family Medicine 08/21/23 08/20/24 Savanna Bhatt NP [address] [place] [address] Drive [address] [place] [address] Urology 08/21/24 documented as of this encounter
--- OUTSIDE RECORDS SUMMARY | 2024-11-04 16:21 | XMS_ITS | Encounter Summary ---
Author Organization [facility] Address [address] [facility] 7t [place] [address] Care Team Providers Care Care Aid Name Role Phone Oneida Griffin Primary Care Provider [phone] Savanna Bhatt VACUUM FORMING MACHINE OPERATOR Unavailable Reason for Visit * Reason Onset Date Comments PT1 10/15/2024 Encounter Details Date Type Department Care Team (Late st Contact Info) Description 10/15/2024 Telephone [facility]INE [address] [place], [place] [phone] Oneida Griffin ANP [address] [place] [address] PT1 Social History Tobacco Use Types Packs/Day [...] encounter Miscellaneous Notes * Telephone Encounter - Maday Tran - 10/15/2024 11:00 AM EST program proposals coordinator calling requesting PT1 Home Address verified: Y/N: Yes Provider name or facility name: [facility] Facility Address: [address] [place] [address] Escort needed: Y/N: Yes Do you have a wheelchair: Y/N: No If yes- Manual or electric: n/a Visits: 1 x month Patient calling requesting PT1 Home Address verified: Y/N: Yes Provider name or facility name: [facility] Facility Address: [address] [place] [address] [place] [address] Escort needed: Y/N: Yes Do you have a wheelchair: Y/N: No If yes- Manual or electric: n/a Visits: 4 x a month documented in this encounter Plan of Treatment Upcoming Encounters Date Type Department Care Team ([facility] st Contact Info) Description 11/08/2024 11:30 AM EST Clinical Support [facility]INE [address] [place] [address] Flavia Gunter RN [address] [place] [address] documented as of this encounter Goals Goal [...] documented as of this encounter Care Teams Care Aid Relationship Specialty Start Date End Date Oneida Griffin ANP [address] [place] [address] PCP - General Family Medicine 09/14/20 Savanna Bhatt NP [address] [place] [address] [address] [place] [address] Urology 08/21/24 documented as of this encounter
--- OUTSIDE RECORDS SUMMARY | 2024-11-04 16:21 | XMS_ITS | Encounter Summary ---
Author Organization [employer] [facility] Address [address] [facility] 7t [place] [address] Care Team Providers Care Laboratory Animal Care Veterinarian Name Role Phone Oneida Griffin Primary Care Provider [phone] Savanna Bhatt DATA GOVERNANCE CONSULTANT Unavailable Reason for Visit * Reason Comments Pre-visit Planning SDOH screening was c ompleted on 05/01/2024 Encounter Details Date Type Department Care Team ([facility] st Contact Info) Description 10/09/2024 Patient Outreach [facility] MEDICINE [address] [place] [address] Oneida Griffin ANP [address] [place], [place] [phone] Pre-visit Planning (SDOH screening was completed on 05/01/2024) Social History Tobacco Use Types Packs/Day Years [...] as of this encounter Progress Notes * Verenice Horton - 10/09/2024 10:29 AM EST DANIELLE Case placed successful outbound call to patient for pre-visit planning. Patient name and confirmed. Patient confirms appt date and time, and has transportation arrangements. Biggest concern for appointment at this time is patient stated left side abdominal pain also unsure if it has to do with the intestines but sometimes feel constipated. Patient advised to bring to appointment a photo id and insurance card. Appropriate screenings completed in anticipation of appointment. documented in this encounter Plan of Treatment Upcoming Encounters Date Type Department Care Team (Late st Contact Info) Description 11/08/2024 11:30 AM EST Clinical Support [facility] MEDICINE [address] [place], [place] [phone] Flavia Gunter, SANTI [address] [place], [place] [phone] documented as of this encounter Goals Goal Patient Goal Type Associated Problems Recent Progress Patient-Stated? Author Record your blood pressure once per day Blood Pressure No Monica Orourke Blood Pressure < 140/90 Blood Pressure 144/91(2024 3:00 PM EST) No Haven Anderson Patient will adhere to medication regimen General No HavenMonica Hemoglobin A1c < 7 Result Component 8.9( 3:37 PM EST) No Yulissa Orourkey documented as of this encounter Visit Diagnoses Not on filedocumented in this encounter Additional Health Concerns Assessment Noted Time PHQ-9 Depression Total Score: 12 024 9:53 AM EDT documented as of this encounter Care Teams Laboratory Animal Care Veterinarian Relationship Specialty Start Date End Date Oneida Griffin ANP [address] [place] [address] PCP - General Family Medicine 09/14/20 Savanna Bhatt NP [address] [facility] [address] [place] [address] Urology 08/21/24 documented as of this encounter
--- OUTSIDE RECORDS SUMMARY | 2024-11-04 16:21 | XMS_ITS | Encounter Summary ---
Author Organization [facility] Address [address] [facility] 7t [place] [address] Care Team Providers Care Bag Making Machine Tender Name Role Phone Oneida Griffin Primary Care Provider [phone] Savanna Bhatt ECONOMIC DEVELOPMENT COORDINATOR Unavailable Reason for Visit * Reason Onset Date Comments Prior Authorization 10/08/2024 Encounter Details Date Type Department Care Team (Late st Contact Info) Description 10/08/2024 Telephone [facility] [address] [place], [place] [phone] Oneida Griffin ANP [address] [place] [address] Prior Authorization Social History Tobacco Use Types Packs/Day Years [...] encounter Miscellaneous Notes * Telephone Encounter - Tiera Jackson - 10/08/2024 2:26 PM EST CANDELARIO Franco approved. Scanned into media. documented in this encounter Plan of Treatment Upcoming Encounters Date Type Department Care Team (Late st Contact Info) Description 11/08/2024 11:30 AM EST Clinical Support [facility] [address] [place] [address] Flavia Gunter RN [address] [place] [address] documented as of this encounter Goals Goal [...] documented as of this encounter Care Teams Bag Making Machine Tender Relationship Specialty Start Date End Date Oneida Griffin ANP [address] [place] [address] PCP - General Family Medicine 09/14/20 Savanna Bhatt NP [address] [place] [address] Drive [address] [place] [address] Urology 08/21/24 documented as of this encounter
--- OUTSIDE RECORDS SUMMARY | 2024-11-04 16:21 | XMS_ITS | Encounter Summary ---
Author Organization [employer] [facility] Address [address] 7[address] [place] [address] Care Team Providers Care Body Artist Name Role Phone Oneida Griffin Primary Care Provider [phone] Savanna Bhatt CADDYMASTER Unavailable Reason for Visit * Reason Onset Date Comments PA for [employer] 10/07/2024 Encounter Details Date Type Department Care Team ([facility] st Contact Info) Description 10/07/2024 Telephone [facility] MEDICINE [address] [place], [place] [phone] Sukhdeep Alves MA PA for [employer] Social History Tobacco Use Types Packs/Day Years [...] Answer Date Recorded Internet Access Q1 No 06/03/2024 Internet Access Q2 Not on file 06/03/2024 Sex and Gender Information Value Date Recorded Sex Assigned at Male 08/01/2022 10:31 AM EDT Legal Sex Male 10:31 AM EDT Gender Identity Male 08/01/2022 10:31 AM EDT Sexual Orientation Straight 08/01/2022 10 :31 AM EDT documented as of this encounter Miscellaneous Notes * Telephone Encounter - Sukhdeep Alves MA - 10/07/2024 10:41 AM EST CANDELARIO Franco signed and faxed to [facility]. Confirmation received and sent to scan. If patient calls to check status on above, please advise them to contact Pharmacy . documented in this encounter Plan of Treatment Upcoming Encounters Date Type Department Care Team (Late st Contact Info) Description 11/08/2024 11:30 AM EST Clinical Support [facility] MEDICINE [address] [place] [address] Flavia Gunter RN [address] [place] [address] documented as of this encounter Goals Goal [...] documented as of this encounter Care Teams Body Artist Relationship Specialty Start Date End Date Oneida Griffin ANP [address] [place] [address] PCP - General Family Medicine 09/14/20 Savanna Bhatt NP [address] [place] [address] Drive [address] [place] [address] Urology 08/21/24 documented as of this encounter
--- OUTSIDE RECORDS SUMMARY | 2024-11-04 16:21 | XMS_ITS | Clinical Summary ---
Author Organization [facility] Address [address] [place] [address] Care Team Providers Care Biomedical Specialist Name Role Phone Unavailable Primary Care Provider Unavailabl e Source Comments PLEASE NOTE, if this patient is a minor, it may be UNLAWFUL to discuss sensitive information that is contained in these records (such as FAMILY PLANNING, MENTAL HEALTH or SUBSTANCE ABUSE) with the minor patient's parent or other person without the patient's specific authorization.[facility] Allergies Active Allergy Reactions Criticality Noted Date Comments Penicillins Hives,Rash,Swelling Low 05/21/2016 Sitagliptin 12/10/2018 Other reaction(s): Other (See Comments) Incontinence by hx, dizzy , nausea, headache Medications ascorbic acid (VITAMIN C) 500 mg tablet Take 500 mg by mouth once daily 06/14/20 23 Active vitamin B complex tablet Take 1 Tablet by mouth once daily 06/14/20 23 Active blood-glucose meter monitoring kit Inject into the skin Active blood pressure test kit (BLOOD PRESSURE MONITOR MISC) USE TO CHECK BLOOD PRESSURE DAILY DIRECTED (SENTADO WITH FEET PLANO EN [place]) 06/24/20 22 Active lancets (FREESTYLE LANCETS) 28 gauge 1 Each by miscellaneous route 3 (three) times a day 10/23/19 24 Active blood-glucose meter monitoring kit TEST BLOOD SUGAR 3 TIMES A DAY 10/23/19 24 Active acetaminophen (TYLENOL) 500 mg tablet Take 500 mg by mouth every 6 (six) hours as needed 12/21/19 23 Active VENTOLIN HFA 90 mcg/actuation inhaler Inhale 2 Puffs into the lungs every 4 to 6 (four to six) hours as needed Active amLODIPine (NORVASC) 10 mg tablet Take 10 mg by mouth daily 01/19/20 24 025 Active aspirin [address] tablet 1 Tablet once daily 02/01/20 23 Active atorvastatin (LIPITOR) 80 mg tablet Take 80 mg by mouth daily 12/21/19 23 Active FREESTYLE LITE STRIPS strips USE DIRECTED TO TEST BLOOD SUGAR TWICE DAILY 01/04/20 24 Active carvediloL (COREG) 3.125 mg tablet Take 3.125 mg by mouth 2 (two) times daily Active OYSTER SHELL CALCIUM-VIT D3 500 mg-10 mcg (400 unit) tablet Take 1 Tablet by mouth once daily Active clotrimazole (LOTRIMIN) 1 % cream Apply topically 2 (two) times daily Active cyclobenzaprin e (FLEXERIL) 10 mg tablet Take 10 mg by mouth 3 (three) times daily as needed for muscle spasms 08/28/20 23 Active dorzolamide (TRUSOPT) 2 % ophthalmic solution Place 1 Drop into both eyes 2 (two) times daily 02/17/20 24 Active dorzolamide-ti moloL (COSOPT) 22.3-6.8 mg/mL ophthalmic solution Place 1 Drop into both eyes 2 (two) times daily 10/27/19 24 Active enalapril (VASOTEC) 20 mg tablet Take 20 mg by mouth every morning Active gabapentin (NEURONTIN) 600 mg tablet Take 600 mg by mouth 3 (three) times daily Active glipiZIDE (GLUCOTROL) 10 mg tablet Take 10 mg by mouth daily. 01/24/20 24 Active VIAGRA 100 mg tablet Take 100 mg by mouth once daily as needed for erectile dysfunction 08/31/20 23 Active VITAMINS B COMPLEX tablet Take 1 Tablet by mouth once daily 02/01/20 24 Active traMADoL (ULTRAM) 50 mg tablet Take 50 mg by mouth 2 (two) times daily as needed for pain 02/13/20 24 Active ARIPiprazole (ABILIFY) 10 mg tabletIndicati ons:Severe episode of recurrent major depressive disorder, with psychotic features (HCC-CMS) Take 1 Tablet by mouth daily 30 Tablet 3 10/31/19 25 Active buPROPion HCL (WELLBUTRIN XL) 300 mg 24 hr tabletIndicati ons:Severe episode of recurrent major depressive disorder, with psychotic features (HCC-CMS) Take 1 Tablet by mouth every morning for 30 days 30 Tablet 3 10/31/19 25 025 Active hydrOXYzine HCL (ATARAX) 25 mg tabletIndicati ons:Anxiety Take 1 Tablet by mouth 3 (three) times daily as needed for anxiety or sleep for up to 120 days 90 Tablet 3 10/31/19 25 025 Active ARIPiprazole (ABILIFY) 10 mg tabletIndicati ons:Severe episode of recurrent major depressive disorder, with psychotic features (HCC-CMS) Take 1 Tablet by mouth daily 30 Tablet 3 10/03/19 25 025 Discontin ued(Reord er (E-Cancel Not Sent)) buPROPion HCL (WELLBUTRIN XL) 300 mg 24 hr tabletIndicati ons:Severe episode of recurrent major depressive disorder, with psychotic features (HCC-CMS) Take 1 Tablet by mouth every morning for 30 days 30 Tablet 10/03/19 25 025 Discontin ued(Reord er (E-Cancel Not Sent)) hydrOXYzine HCL (ATARAX) 25 mg tabletIndicati ons:Anxiety Take 1 Tablet by mouth 3 (three) times daily as needed for anxiety or sleep for up to 120 days 90 Tablet 3 10/03/19 25 025 Discontin ued(Reord er (E-Cancel Not Sent)) ARIPiprazole (ABILIFY) 10 mg tabletIndicati ons:Severe episode of recurrent major depressive disorder, with psychotic features (HCC-CMS) Take 1 Tablet by mouth daily 30 Tablet 3 10/31/19 25 025 Discontin ued(Reord er (E-Cancel Not Sent)) buPROPion HCL (WELLBUTRIN XL) 300 mg 24 hr tabletIndicati ons:Severe episode of recurrent major depressive disorder, with psychotic features (HCC-CMS) Take 1 Tablet by mouth every morning for 30 days 30 Tablet 10/31/19 25 025 Discontin ued(Reord er (E-Cancel Not Sent)) hydrOXYzine HCL (ATARAX) 25 mg tabletIndicati ons:Anxiety Take 1 Tablet by mouth 3 (three) times daily as needed for anxiety or sleep for up to 120 days 90 Tablet 3 10/31/19 25 025 Discontin ued(Reord er (E-Cancel Not Sent)) Active Problems Problem Noted Date Diagnosed Date Calculus of gallbladder with out cholecystitis without obstruction 12/13/2023 Tobacco dependence 06/29/2023 Hypertensive urgency 06/12/2023 Whole body pain 06/12/2023 Anal abscess 06/24/2022 Carbuncle of skin and/or subcutaneous tissue 08/2021 Obesity (BMI 30-39.9) 11/06/2018 Chronic low back pain 04/11/2018 Pain in left arm 02/09/2018 Recurrent major depression (HCC-CMS) 02/09/2018 Overview (05/09/2024): Last Assessment & Plan: Presented with auditory hallucinations,. Found Seroquel 25 mg excessively sedating. Has been suffering from severe pain from multiple etiologies: Fibromyalgia, gallbladder, kidney. Also worried about his blood pressure. Not sleeping well r/t pain, but Trazodone helps. He will continue Trazodone 100 mg at bedtime (1-2 tablets), Aripiprazole 10 mg daily, Bupropion XL 150 mg daily and Hydroxyine 25 mg prn anxiety or sleep. He also has Gabapentin 600 mg TID per Pain Mgt. He has been referred for counseling. Since this provider will be retiring, he will be transferred to new [facility] 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 Any issues or concerns call [facility]. All his questions were answered. I have wished him well. He agrees with the plan. Assessment & Plan (10/31/2024 4:31 PM EST): Severe depression with psychotic features - Assessment: Improving - Plan: - Continue current medications: Abilify 10 mg, Continue Wellbutrin XL 300 mg, Continue Hydroxyzine HCL - Monitor patient's mood and any changes in symptoms. - RTC in 60 days Assessment & Plan (10/03/2024 1:05 PM EST): Severe depression with psychotic features - Assessment: Improving - Plan: - Continue current medications: Abilify 10 mg, Continue Wellbutrin XL 300 mg, Continue Hydroxyzine HCL - Monitor patient's mood and any changes in symptoms. - RTC in 30 days Assessment & Plan (09/05/2024 1:37 PM EST): Severe depression with psychotic features - Assessment: situational depressive moments and crying spells during this festive period - Plan: - Continue current medications: Abilify 10 mg, Increased Wellbutrin (bupropion) to 300 mg, stop Trazodone ( dry mouth) - Monitor patient's mood and any changes in symptoms. - RTC in 30 days Assessment & Plan (06/11/2024 1:38 PM EDT): Severe depression with psychotic features - Assessment: symptoms under control. - Plan: - Continue current medications: Abilify 10 mg, Wellbutrin (bupropion) 150 mg, Trazodone as needed. - Monitor patient's mood and any changes in symptoms. - RTC in 90 days or F/u with PCP. Assessment & Plan (05/10/2024 12:51 PM EDT): Severe depression with psychotic features - Assessment: Patient reports improvement in mood and no longer experiencing hallucinations or auditory disturbances. - Plan: - Continue current medications: Abilify 10 mg, Wellbutrin (bupropion) 150 mg, Trazodone as needed. - Monitor patient's mood and any changes in symptoms. Anxiety 02/13/2017 Assessment & Plan (10/03/2024 1:05 PM EST): Anxiety - Assessment: symptoms under control with current regiment - Plan: - Continue Hydroxyzine for anxiety and sleep. Assessment & Plan (09/05/2024 1:38 PM EST): Anxiety - Assessment: symptoms under control with current regiment - Plan: - Continue Hydroxyzine for anxiety and sleep. - Consider referral to therapy for additional support and coping strategies. - encouraged to reach out to electroplating worker, patient agreed. Assessment & Plan (06/11/2024 1:40 PM EDT): Anxiety - Assessment: situational anxiety with worrying about moving to new apartment, does not have any support system in the area. - Plan: - Continue Hydroxyzine for anxiety and sleep. - Consider referral to therapy for additional support and coping strategies. - encouraged to reach out to electroplating worker, patient agreed. Assessment & Plan (05/10/2024 12:54 PM EDT): Anxiety - Assessment: Patient reports occasional anxiety and panic attacks related to medical procedures. - Plan: - Continue Hydroxyzine for anxiety and sleep. - Consider referral to therapy for additional support and coping strategies. 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 08/11/2016 Corneal ulcer 06/13/2016 Obstructive sleep apnea syndrome 05/08/2015 Mixed hyperlipidemia 03/09/2015 Essential hypertension 12/02/2014 Kidney stones 12/02/2014 Overview (05/09/2024): Hx of hydronephrosis, hx of lithotripsy x 2 Uncontrolled diabetes mellitus with hyperglycemi a (HCC-CMS) 12/02/2014 Encounters Date Type Department Care Team Description 10/31/2024 1:00 PM EST Behavioral Health Visit [facility] [address] [place] [phone] Geraldine Garcia APRN Severe episode of recurrent major depressive disorder, with psychotic features ([facility]); Anxiety 10/03/2024 1:00 PM EST Behavioral Health Visit [facility] [address] [place] [phone] Geraldine Garcia APRN Severe episode of recurrent major depressive disorder, with psychotic features ([facility]); Anxiety 09/05/2024 1:00 PM EST Behavioral Health Visit [facility] [address] [place] [phone] Geraldine Garcia APRN Severe episode of recurrent major depressive disorder, with psychotic features ([facility]); Anxiety from Last 3 Months Immunizations Name Administration Dates Next Due PNEUMOCOCCAL CONJUGATE PCV 13 01/08/2015 PNEUMOCOCCAL POLYSACCHARIDE PPV23 01/08/2015 TDAP 01/08/2015 Family History Medical History Relation Name Comments Diabetes Mellitus I Brother Mental retardation Daughter Blindness Father Diabetes Mellitus I Mother No Known Problems Sister Relation Name Status Comments Brother Daughter Father Mother Sister 3 sisters Social History Tobacco Use Types Packs/Day Years Used Date Smoking Tobacco: Every Day Cigarettes Started: 1983 Smokeless Tobacco: Never Tobacco Cessation:Ready to Q uit: Not Asked; Counseling Given: Not Answered Comments:Has quit several times, longest duration being 3 years. Currently not [...] on file Sexual Orientation Not on file Plan of Treatment Upcoming Encounters Date Type Department Care Team ([facility] st Contact Info) Description 12/26/2024 1:30 PM EDT Behavioral Health Visit [facility] [address] [place] [phone] Geraldine Garcia, [address] [place] [address] Health Maintenance Due Date Last Done Comments Depression Monitoring 1970 Diabetes Foot Exam 1970 Diabetes Microalbumin (w/Creatinine) 1970 Serum Creatinine 1970 Urine Drug Screen 1970 [id number] (#1) 1975 Retinopathy Screening 1983 Imm-Hepatitis B (1 of 3 - 19 + 3-dose series) 1989 Imm-Zoster, Recombinant (1 of 2) 1989 CT Colonography 2015 Colonoscopy 2015 Colorectal Cancer Screening 2015 FIT/gFOBT 2015 Fecal DNA 2015 Flexible Sigmoidoscopy 2015 Imm-Pneumococcal (3 of 3 - P PSV23, PCV20 or PCV21) 01/09/2020 01/08/2015, 01/08/2015 Imm-Influenza (#1) 2024 Alcohol and Drug Screen 10/02/2024 Imm-DTaP/Tdap/Td (2 - Td or Tdap) 01/08/2025 015 Diabetes HbA1c 01/16/2025 10/18/2024, 08/03, 01/19/2024, Additional history exists Lipid Screening 08/21/2025 08/21/2024, 11/14/2022 Tobacco Cessation Counseling (#1) 10/31/2025 HIV Screening Completed 08/21/2024, 08/03, 11/14/2022, Additional history exists Hepatitis C Screening Completed 08/21/2024, 023 Insurance [place] [facility]
--- OUTSIDE RECORDS SUMMARY | 2024-11-04 16:21 | XMS_ITS | Clinical Summary ---
Author Organization [employer] Address [address] [facility] [address] [place] [address] Care Team Providers Care Floor Manager Name Role Phone Mariana Fowler Primary Care Provider [phone] Savanna Bhat[employer] Unavailable Allergies Active Allergy Reactions Criticality Noted Date Comments Penicillins Hives 05/21/2016 Sitagliptin 12/10/2018 Other reaction(s): Other (See Comments) Incontinence by hx, dizzy , nausea, headache Medications * This document contains information received from the source organization and may not represent a complete record from that organization. Blood Glucose Monitoring Suppl (FreeStyle Lite) device Inject under the skin if needed. Check blood sugar 2 times every day Active acetaminophen (Tylenol Extra Strength) 500 MG tabletIndications :Abscess of left leg Take 1-2 tabs as needed for pain up to every 8 hours 60 tablet 2 023 Active Blood Pressure [place] [facility] [place] BLOOD PRESSURE DAILY DIRECTED (SENTADO WITH FEET PLANO EN [place]) 022 Active B Complex Vitamins (B-Complex/B-12) tablet TAKE 1 TABLET BY MOUTH EVERY DAY 90 tablet 3 023 Active lidocaine (Lidoderm) 5 % patchIndications: Chest wall pain APPLY 1 PATCH TOPICALLY TO SKIN, LEAVE ON FOR 12 HOURS AND OFF FOR 12 HOURS DIRECTED 30 patch 1 023 Active clotrimazole (Lotrimin) 1 % creamIndications: Jock itch APPLY TO THE AFFECTED AREA(S) TWICE DAILY FOR 28 DAYS 30 g 2 023 Active albuterol (Ventolin HFA) 108 (90 Base) MCG/ACT inhaler INHALE 2 PUFFS BY MOUTH EVERY 4 TO 6 HOURS NEEDED 18 g 1 023 Active famotidine (Pepcid) 20 MG tablet TAKE 1 TABLET BY MOUTH TWICE DAILY 180 tablet 023 Active FreeStyle lancets 1 each by Other route 3 times daily. TEST BLOOD SUGAR 3 TIMES A DAY 100 each 024 Active glucose blood (FREESTYLE LITE) test strip TEST BLOOD SUGAR 3 TIMES A DAY 100 each 024 Active senna-docusate (Sowmya-Colace) 8.6-50 MG tabletIndications :Constipation, unspecified constipation type 2 tablets times daily as needed for constipation 60 tablet 2 024 Active ibuprofen 800 MG tablet TAKE 1 TABLET BY MOUTH THREE TIMES DAILY 30 tablet 024 Active hydrOXYzine HCl (Atarax) 25 MG tabletIndications :Severe episode of recurrent major depressive disorder, with psychotic features (CMS/HCC) Take 1 tablet (25 mg) by mouth if needed at bedtime (sleep). 90 tablet 1 024 Active amLODIPine (Norvasc) 10 MG tabletIndications :Essential hypertension Take 1 tablet (10 mg) by mouth Once per day. Every day 90 tablet 3 024 2024 Active glipiZIDE (Glucotrol) 10 MG tabletIndications :Type 2 diabetes mellitus with hyperlipidemia (CMS/HCC) (CMS/HCC) TAKE 1 TABLET BY MOUTH TWICE DAILY BEFORE BREAKFAST & BEFORE SUPPER 180 tablet 3 024 Active ARIPiprazole (Abilify) 10 MG tablet Take 1 tablet (10 mg) by mouth Once per day. 90 tablet 3 024 Active traZODone (Desyrel) 100 MG tabletIndications :Severe episode of recurrent major depressive disorder, with psychotic features (CMS/HCC) Take 2 tablets (200 mg) by mouth at bedtime. 180 tablet 3 024 Active Neomycin-Bacitrac in-Polymyxin (Triple Antibiotic) 3.5-400-5000 ointment Apply thin layer once a day to the affected skin 28 g 024 Active OneLax Magnesium Citrate oral solutionIndicatio ns:Constipation, unspecified constipation type DRINK 4 TO 8 OUNCES BY MOUTH ONCE, MAY REPEAT ONCE IN 4 HOURS, DO NOT EXCEED MORE THAN 2 DOSES / DAY 592 mL 024 Active atorvastatin (Lipitor) 80 MG tabletIndications :Type 2 diabetes mellitus with hyperlipidemia (CMS/HCC) ([facility]) TAKE 1 TABLET BY MOUTH EVERY DAY 90 tablet 3 024 Active Vitamins-Lipotrop ics (B Complex Formula 1, Lipotrop,) tablet TAKE 1 TABLET BY MOUTH EVERY DAY 90 tablet 3 024 Active carvedilol (Coreg) 3.125 MG tabletIndications :Essential hypertension TAKE 1 Tablet BY MOUTH TWICE DAILY 180 tablet 3 024 Active aspirin 81 MG EC tabletIndications :Type 2 diabetes mellitus with hyperlipidemia (CMS/HCC) ([facility]) TAKE 1 TABLET BY MOUTH EVERY DAY 90 tablet 3 024 Active Viagra 100 MG tabletIndications :Erectile dysfunction, unspecified erectile dysfunction type TAKE 1 TABLET 1 HOUR BEFORE SEXUAL RELATIONS ONCE DAILY NEEDED. 30 tablet 1 024 Active enalapril (Vasotec) 20 MG tabletIndications :Essential hypertension TAKE 1 TABLET BY MOUTH EVERY MORNING 90 tablet 3 024 Active Ascorbic Acid (vitamin C) 500 MG tablet TAKE 2 TABLETS BY MOUTH EVERY DAY 180 tablet 3 024 Active polyethylene glycol, PEG, 3350 (GaviLAX) 17 GM/SCOOP powderIndications :Constipation, unspecified constipation type MIX 17 GRAMS WITH 8 OUNCES OF WATER AND DRINK 1 TO 2 TIMES PER DAY NEEDED FOR CONSTIPATION 510 g 2 024 Active traMADol (Ultram) 50 MG tabletIndications :Whole body pain Take 1 tablet (50 mg) by mouth 2 times daily. 56 tablet 024 Active Oyster Shell Calcium + D3 500-10 MG-MCG tablet TAKE 1 TABLET BY MOUTH EVERY DAY 90 tablet 3 024 Active semaglutide (Rybelsus) 3 MG tabletIndications :Type 2 diabetes mellitus with hyperlipidemia (CMS/HCC) ([facility]) Take 1 tablet 30 minutes before food or other medication in the morning 30 tablet 2 024 Active gabapentin (Neurontin) 600 MG tabletIndications :Whole body pain Take 1 tablet (600 mg) by mouth 3 times daily. 21 tablet 025 Active gabapentin (Neurontin) 600 MG tablet Take 600 mg by mouth 3 times daily. 023 2024 Discontinued(R eorder (will not trigger notification to Pharmacy)) Active Problems Problem Noted Date Diagnosed Date Carpal tunnel syndrome, bilateral 07/16/2024 Overview (07/16/2024): NCS 05/14/24 Cubital tunnel syndrome, bilateral 07/16/2024 Overview (07/16/2024): NCS 05/14/24 Neuropathy of left brachial plexus 07/16/2024 Overview (07/16/2024): NCS 05/14/24 Calculus of gallbladder with out cholecystitis without obstruction 12/13/2023 Tobacco dependence 06/29/2023 Hypertensive urgency 06/12/2023 Whole body pain 06/12/2023 Type 2 diabetes mellitus with hyperlipidemia (CM S/HCC) 03/03/2023 Anal abscess 06/24/2022 Carbuncle of skin and/or subcutaneous tissue 08/2021 Obesity (BMI 30-39.9) 11/06/2018 Dizziness 06/01/2018 Chronic low back pain 04/11/2018 Pain in left arm 02/09/2018 Recurrent major depression 02/09/2018 Assessment & Plan (02/20/2024 10:58 AM EDT): Presented with auditory hallucinations,. Found Seroquel 25 [...] retiring, he will be transferred to new [facility] 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 Any issues or concerns call [facility]. All his questions were answered. I have wished him well. He agrees with the plan. Assessment & Plan (01/01/2024 10:31 AM EDT): Presented with auditory hallucinations,. Found Seroquel 25 mg excessively sedating. Has been suffering from severe pain from multiple etiologies: Fibromyalgia, gallbladder, kidney. Also worried about his blood pressure. He has gotten multiple new medications and has not been taking his psychiatric medications. No hallucinations, however. Not sleeping well r/t pain. Suggest he try taking the Trazodone 100 mg at bedtime (1-2 tablets). The others he can resume when he feels ready: Aripiprazole 10 mg daily, Bupropion XL 150 mg daily and Hydroxyine 25 mg prn anxiety or sleep. He also has Gabapentin 600 mg TID per Pain Mgt. He has been referred for counseling. He will F/U with PCP and Director Of Application Development as usual. On 08/21/2023 provider informed the patient that I would be retiring, and that we would make every effort to ensure continuity of care. Meanwhile, F/U with me in 6-8 weeks. He agrees with the plan. Assessment & Plan (11/02/2023 4:44 PM EST): Presented with auditory hallucinations,. Found Seroquel 25 mg excessively sedating. C/O severe pain from Fibromyalgia, recently given Rx for Tramadol. Reviewed precautions re drug/alcohol interactions. Suggested he try acupuncture, and he is interested. We will send him the informational flyer for [facility] Acupuncture clinic. Will continue current medications: Aripiprazole 10 mg daily, Trazodone 100 mg 2 tab at bedtime, Bupropion XL 150 mg daily and Hydroxyine 25 mg prn anxiety or sleep. Continue Gabapentin 600 mg TID per Pain Mgt. Today says he is not interested in counseling (although has already been referred). On 08/21/2023 provider informed the patient that I would be retiring, and that we would make every effort to ensure continuity of care. F/U with me in 2 months. He agrees with the plan. Assessment & Plan (08/21/2023 9:49 AM EST): Presented with auditory hallucinations,. Found Seroquel 25 mg excessively sedating. Reports doing OK emotionally, but not sleeping well. C/O pain from Fibromyalgia. Missing meds, not interested in Medboxes. Reviewed plan and sent new Rxs for Aripiprazole 10 mg daily and Trazodone 100 mg 2 tab at bedtime. Will also continue, Bupropion XL 150 mg daily and Hydorxyine 25 mg prn anxiety or sleep. Continue Gabapentin 600 mg TID per Pain Mgt. Will be referred for counseling. Today provider informed the patient that I would be retiring within the next year or so, and that we would make every effort to ensure continuity of care. F/U with me in 2 months. He agrees with the plan. Assessment & Plan (06/19/2023 12:12 PM EDT): Presented with auditory hallucinations,. Found Seroquel 25 mg excessively sedating. Again doing better emotionally and sleeping better with increased Aripiprazole 10 mg daily and increased Trazodone 200 mg at bedtime. Will also continue, Bupropion XL 150 mg daily and Hydorxyine 25 mg prn anxiety or sleep. Reviewed with patient the symptoms of poorly controlled DM as well as longer term risks and supported his plan to control better. F/U with me in 2 months. He agrees with the plan. Assessment & Plan (05/08/2023 11:22 AM EDT): Presented with auditory hallucinations which had been controlled. Found Seroquel 25 mg excessively sedating. Not doing as well with increased depression/anxiety r/t body pain of unknown etiology. Will increase now to Aripiprazole 10 mg daily. Increase to Trazodone 200 mg at bedtime. Continue, Bupropion XL 150 mg daily and Hydorxyine 25 mg prn anxiety or sleep. F/U 6 weeks. He agrees with the plan. Assessment & Plan (02/20/2023 3:21 PM EDT): Presented with auditory hallucinations which had been controlled. Found Seroquel 25 mg excessively sedating. Again doing well despite multiple recent family losses. He does still have social supports. Not interested in counseling. Continue Aripiprazole 5 mg daily, Bupropion XL 150 mg daily, Trazodone 150 mg at bedtime, and Hydorxyine 25 mg prn anxiety or sleep. F/U 2 months. He agrees with the plan. Assessment & Plan (12/19/2022 10:08 AM EDT): Presented with auditory hallucinations which had been controlled. Found Seroquel 25 mg excessively sedating. Again doing well. Continue medications as usual. F/U 2 months. He agrees with the plan. Assessment & Plan (10/20/2022 2:38 PM EST): Presented with auditory hallucinations which had been controlled. Found Seroquel 25 mg excessively sedating. rHad been doing better with current regimen, but recently not sleeping as well since of his cousin. Rather than increasing his maintenance meds, he will have Rx for Hydroxyzine 25 mg to take at bedtime prn. Continue other meds as usual, and F/U with me in 4-6 weeks. He agrees with the plan. 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 08/11/2016 Corneal ulcer 08/11/2016 Corneal ulcer of right eye with hypopyon 016 Obstructive sleep apnea 05/08/2015 Mixed hyperlipidemia 03/09/2015 DM (diabetes mellitus), type 2, uncontrolled, with renal complications 12/08/2014 Uncontrolled diabetes mellitus with hyperglycemi a 12/02/2014 Hypertension 12/02/2014 Resolved Problems Problem Noted Date Diagnosed Date Resolved Date Kidney stones 12/02/2014 05/13/2024 Overview (01/12/2024): Hx of hydronephrosis, hx of lithotripsy x 2 Encounters Date Type Department Care Team Description 10/18/2024 2:30 PM EST Office Visit [facility] MEDICINE [address] [place] [address] [phone] Mariana Fowler, MARCELA Type 2 diabetes mellitus with hyperlipidemia (CMS/HCC) (CMS/HCC) (Primary Dx); Whole body pain 10/18/2024 Travel 10/17/2024 Orders Only [facility] External Provider, [facility] 10/15/2024 Patient Outreach [facility] [place] [address] Mariana Fowler ANP Care Coordination (CH[facility] outreach for SDOH PT-1 and food needs-referral completed /) 10/15/2024 Telephone [facility] [address] Mariana Fowler ANP PT1 10/09/2024 Patient Outreach [facility] [place] [address] Mariana Fowler ANP Pre-visit Planning (SDOH screening was completed on 05/01/2024) 10/08/2024 Telephone [facility] [place] [address] Mariana Fowler ANP Prior Authorization 10/07/2024 Telephone [facility] [place] [address] Sukhdeep Alves MA PA for [employer] 10/03/2024 Telephone [facility]INE [facility] [place] [address] Mariana Fowler ANP Prior Authorization ( PA Request: [employer]) 10/01/2024 Telephone [facility] MEDICINE [facility] [address] Mariana Fowler ANP 09/30/2024 Refill [facility] MED[facility] [place] [address] Mariana Fowler ANP Constipation, unspecified constipation type 08/23/2024 Refill [facility] [place] [address] Mariana Fowler ANP 08/21/2024 3:00 PM EST Office Visit [facility] [place] [address] Mariana Fowler ANP Hypertensive urgency (Primary Dx); Type 2 diabetes mellitus with hyperlipidemia (CMS/HCC) ([facility]); Routine screening for STI (sexually transmitted infection); Whole body pain 08/21/2024 Orders Only [facility] MED[facility] [address] Mariana Fowler ANP 08/21/2024 Travel 08/20/2024 Telephone [facility] MEDICINE [address] [place] [address] Alexia Sauer MA chart prep 08/15/2024 Travel 08/14/2024 Refill [facility] MEDICINE [address] [place] [address] Mariana Fowler ANP Constipation, unspecified constipation type 08/12/2024 Refill [facility] [address] [place] [address] Mariana Fowler ANP Essential hypertension 08/08/2024 Refill [facility] MED[facility]INE [address] [place] [address] Mariana Fowler ANP Whole body pain 08/06/2024 Refill [facility] MEDICINE [address] [place] [address] Mariana Fowler ANP Erectile dysfunction, unspecified erectile dysfunction type from Last 3 Months Immunizations Name Administration Dates Next Due Pneumococcal Conjugate PCV 13 01/08/2015 Pneumococcal Polysaccharide PPSV23 01/08/2015 Tdap 01/08/2015 Social History Tobacco Use Types Packs/Day Years [...] Orientation Straight 08/01/2022 10 :31 AM EDT Last Filed Vital Signs Vital Sign Reading [...] oz) 10/18/2024 3:00 P M EST Height 172.7 cm (5' 8 ) 08/21/2024 3:04 PM EST Body Mass Index 32.78 08/21/2024 3:04 PM EST Plan of Treatment Upcoming Encounters Date Type Department Care Team (Late st Contact Info) Description 11/08/2024 11:30 AM EST Clinical Support [facility] MEDICINE [address] [place] [address] Flavia Gunter RN [address] [place] [address] [phone] Health Maintenance Due Date Last Done Comments CT Colonography 1970 Colonoscopy 1970 Colorectal Cancer Screening 1970 Dental Prophylaxis 1970 FIT DNA/Cologuard 1970 FIT 1970 FOBT 1970 Sigmoidoscopy 1970 Diabetes: Foot Exam 1980 Hepatitis A Vaccines (1 of 2 - Risk 2-dose series) 1989 Hepatitis B Vaccines (1 of 3 - 19+ 3-dose series) 1989 Dental Oral Exam 08/17/2018 02/13/2018 Dental X-Ray: Bitewings 02/14/2019 02/13/2018 Pneumococcal Vaccine: 50+ Years (3 of 3 - PCV20 or PCV21) 2020 01/08/2015, 01/08/2015 Zoster Vaccines (1 of 2) 2020 Dental X-Ray: Full Mouth 02/14/2021 02/13/2018 Depression Monitoring (PHQ-9) 08/22/2024 02/20/2024, 02/20/2024 Eye Exam 10/24/2024 Alcohol/Substance Use Screening 12/07/2024 12/08/2023 DTaP/Tdap/Td Vaccines (2 - Td or Tdap) 01/08/2025 01/08/2015 Diabetes: Hemoglobin A1C 01/16/2025 025, 08/21/2024, 01/19/2024, Additional history exists Depression Screening 02/19/2025 02/20/2024, 02/20/20 24 Influenza Vaccine (#1) 2025 Postp oned from 06/02/2024 (Patient Refused) SDOH Screening 05/01/2025 05/01/2024 Lipid Panel 08/21/2025 08/21/2024, 11/02, 02/02/2021 COVID-19 Vaccine ( season) 2025 Postponed from 06/02/2024 (Patient Refused) Tobacco Screening 10/18/2025 10/18/2024 RSV Patients and Patients Aged 60 years or older (1 - 1-dose 75+ series) 2045 HIV Screening Completed 08/21/2024, 11/14/2022 Hepatitis C Screening Completed 08/21/2024, 023 HIB Vaccines Aged Out No longer eligi ble based on patient's age to complete this topic HPV Vaccines Aged Out No longer eligi ble based on patient's age to complete this topic IPV Vaccines Aged Out No longer eligi ble based on patient's age to complete this topic Meningococcal Vaccine Aged Out No rashi juan carlos eligible based on patient's age to complete this topic RSV under 20 months Aged Out No longe r eligible based on patient's age to complete this topic Rotavirus Vaccines Aged Out No longer eligible based on patient's age to complete this topic Goals Goal Patient Goal Type Associated Problems Recent Progress Patient-Stated? Author Record your blood pressure once per day Blood Pressure No Monica Orourke Blood Pressure < 140/90 Blood Pressure 144/91(2024 3:00 PM EST) No Monica Orourke Patient will adhere to medication regimen General No Monica Orourke Hemoglobin A1c < 7 Result Component 8.9( 3:37 PM EST) No Monica Orourke Procedures Procedure Name Priority Date/Time Associated Diagnosis Comments US ABDOMEN COMPLETE Routine 10/19/2024 8 :06 AM EST POCT GLYCATED HEMOGLOBIN, TOTAL Routine 10/18/2024 3:37 PM EST Type 2 diabetes mellitus with hyperlipidemia (CMS/HCC) (CMS/HCC) POCT GLUCOSE Routine 10/18/2024 3:08 PM EST Type 2 diabetes mellitus with hyperlipidemia (CMS/HCC) (CMS/HCC) LIPID PANEL, STANDARD Routine 08/21/2024 3:49 PM EST Type 2 diabetes mellitus with hyperlipidemia (CMS/HCC) (CMS/HCC) RPR (MONITOR) W/REFL TITER Routine 08/21/2024 3:49 PM EST Routine screening for STI (sexually transmitted infection) HEPATITIS C AB W/REFL TO HCV RNA, QN, PCR Routine 08/21/2024 3:49 PM EST Routine screening for STI (sexually transmitted infection) HIV 1/2 ANTIGEN/ANTIBODY, FOURTH GENERATION W/RFL Routine 08/21/2024 3:49 PM EST Routine screening for STI (sexually transmitted infection) TESTOSTERONE, FREE (DIALYSIS) AND TOTAL,MS Routine 08/21/2024 3:49 PM EST Fatigue, unspecified type CREATINE KINASE, TOTAL Routine 08/21/2024 3:49 PM EST Whole body pain CHLAMYDIA/N. GONORRHOEAE RNA, TMA, UROGENITAL Routine 08/21/2024 3:43 PM EST POCT GLYCATED HEMOGLOBIN, TOTAL Routine 08/21/2024 3:09 PM EST Type 2 diabetes mellitus with hyperlipidemia (CMS/HCC) (CMS/HCC) POCT GLUCOSE Routine 08/21/2024 3:06 PM EST Type 2 diabetes mellitus with hyperlipidemia (CMS/HCC) (CMS/HCC) DIAGNOSTIC - DIAGNOSTIC IMAGING - INTRAORAL - COMPREHENSIVE SERIES OF RADIOGRAPHIC IMAGES Routine 02/13/2018 12:00 AM EDT COMPREHENSIVE ORAL EVALUATION - NEW OR ESTABLISHED PATIENT Routine 02/13/2018 12:00 AM EDT from Last 3 Months or Most Recently Relevant to Health Maintenance Results * US Abdomen Complete (10/19/2024 8:06 AM EST) Anatomical Region Laterality Modality Abdomen Ultrasound 10/19/2024 8:06 AM EST Narrative 10/19/2024 8:08 AM EST ? [facility] ?[address] ?[place] [address] ? Ultrasound Report ? Signed ? Patient: Florentin,Nii ?MR#: [id number] ? : 1970 ?Acct:[id number] ? Age/Sex: 54 / M ?ADM Date: 10/17/24 ? Loc: HO.US ? Attending Dr: Gerry Urbina MD ? Ordering Physician: Gerry Urbina MD ?? Date of Service: 10/17/24 ?? Procedure(s): US abdomen complete ?? Accession Number(s): [id number] ? cc: Gerry Urbina MD; MARIANA FOWLER [...] in OV> ? 10/19/24 0807 ? DD/ 5 ? TD/TT: 10/19/24805 ? Spd Tech: ? Procedure Note Joselyn, Livan - 10/19/2024 [place] [address] Ultrasound Report Signed Patient: Dariela Lerma#: [id number] : 1970Acct:[id number] Age/Sex: 54 / MADM Date: 10/17/24 Loc: HO.US Attending Dr: Gerry Urbina MD Ordering Physician: Gerry Urbina MD Date of Service: 10/17/24 Procedure(s): US abdomen complete Accession Number(s): [id number] cc: Gerry Urbina MD; MARIANA FOWLER NP [...] Milner MD in OV> 10/19/24 0807 DD/ 08 TD/TT: 10/19/24 08 Spd Tech: [facility] External Provider IMG US PROCEDURES Final Result * (ABNORMAL) POCT HGB A1C (10/18/2024 3:37 PM EST) Only the most recent of2 resultswithin the time period is included. Hemoglobin A1C 8.9(A) 4.0 - 6.0 % QC Media Lot # [id number] Lot# Expiration Date ,026 Blood 10/18/2024 3:37 PM EST Critical access hospital POINT OF CARE TEST ENTER/EDIT OR DERABLES Final Result * POCT Glucose (10/18/2024 3:08 PM EST) Only the most recent of2 resultswithin the time period is included. Glucose Blood, POC 174 60 - 200 mg/dL QC Media Lot # [id number] Lot# Expiration Date [id number] Blood Capillary blood specimen / Unknown 10/18/2024 3:08 PM EST [facility] Fowler [facility] POINT OF CARE TEST ENTER/EDIT OR DERABLES Final Result * Hepatitis C Antibody with Reflex to HCV, RNA, Quantitative, Real-Time PCR (08/21/2024 3:49 PM EST) Pathologist [facility] Hepatitis C Antibody Nonreactive Nonreactive [facility] Comment:Antibodies to HCV no t detected; does not exclude early acuteHCV infection. Blood Venous blood specimen / Unknown 08/21/2024 3:49 PM EST 08/21/2024 5:42 PM EST [facility] LAB BLOOD ORDERABLES Final Resul t Performing Organization Address [facility] Co de Phone Number [facility] [address] [place] [address] [phone] * RPR (Monitor) with Reflex to??Titer (08/21/2024 3:49 PM EST) Pathologist [facility] RPR (Monitor) w/Refl Titer NON-REACTI VE NON-REACT LOPEZ [facility] Comment:THIS TEST WAS PERFOR MED AT:[facility] [address] [id number] COLON MD Rapid Plasma Reagin Ab Titer TNP [facility] Blood Venous blood specimen / Unknown 08/21/2024 3:49 PM EST 08/21/2024 5:42 PM EST Critical access hospital LAB BLOOD ORDERABLES Final Resul t Performing Organization Address [facility] Co de Phone Number [facility] [address] [place] [address] [phone] * HIV-1/2 Antigen and Antibodies, Fourth Generation, with Reflexes (08/21/2024 3:49 PM EST) Pathologist [facility] HIV AB/AG Nonreactive Nonreactive [facility] Comment:HIV-1 p24 Ag and/or HIV-1/HIV-2 Ab not detected.A test result that is nonreactive does not exclude thepossibility of exposure to or infection with HIV-1 and/orHIV-2. Nonreactive results in this assay for individualswith prior exposure to HIV-1 and/or HIV-2 may be due toantigen and antibody levels that are below the limit ofdetection of this assay.The [employer] HIV Ag/Ab Combo assay result andsupplemental assay results should be interpreted inconjunction with the patient's clinical presentation,history and other laboratory results. If the results areinconsistent with clinical evidence, additional testing issuggested to confirm the result. Blood Venous blood specimen / Unknown 08/21/2024 3:49 PM EST 08/21/2024 5:42 PM EST Mariana Fowler [facility] BLOOD ORDERABLES Final Resul t [facility] [address] [place] [address] [phone] * Testosterone, Free (Dialysis) And Total, MS (08/21/2024 3:49 PM EST) Testosterone, Total 369 250 - 1100 ng/dL [facility] Comment:For additional infor kane, please refer [email or web address]/faq/[email or web address](This link is being provided for informational/educational purposes only.)This test was developed and its analytical performancecharacteristics have been determined by [employer] [place] [place]. It hasnot been cleared or approved by the U.S. Food and DrugAdministration. This assay has been validated pursuantto the CLIA regulations and is used for clinicalpurposes. Testosterone, Free 66.8 35.0 - 155.0 pg/mL [facility] Comment:This test was develo kourtney and its analytical performancecharacteristics have been determined by [employer] [place] [place]. It hasnot been cleared or approved by the U.S. Food and DrugAdministration. This assay has been validated pursuantto the CLIA regulations and is used for clinicalpurposes.THIS TEST WAS PERFORMED AT:[id number] [place] [address]GNIFJUOUMESH VELAZQUEZ MD,PHD Blood Venous blood specimen / Unknown 08/21/2024 3:49 PM EST 08/21/2024 5:42 PM EST Mariana Fowler [facility] BLOOD ORDERABLES Final Resul t Performing Organization Address [facility] Phone Number [facility] [address] [place] [phone] * Creatine Kinase, Total (08/21/2024 3:49 PM EST) Pathologist [facility] Creatine Kinase Total 158 38 - 174 U/L [facility] Blood Venous blood specimen / Unknown 08/21/2024 3:49 PM EST 08/21/2024 5:42 PM EST Mariana Fowler [facility] BLOOD ORDERABLES Final Resul t Performing Organization Address [facility] Phone Number [facility] [address] [place] [phone] * (ABNORMAL) Lipid Panel, Standard (08/21/2024 3:49 PM EST) Triglycerides 162(H) <150 mg/dL [facility] Comment:Desirable Triglyceri de: less than 150 mg/dLBorderline High Triglyceride 150-199 mg/dLHigh Triglyceride: 200-499 mg/dLVery High Triglyceride: greater than or equal to 5OO mg/dL Cholesterol 191 <200 mg/dL [facility] Comment:Desirable Cholestero l: less than 200 mg/dLBorderline High Cholesterol: 200-239 mg/dLHigh Cholesterol: greater than 239 mg/dL LDL Cholesterol Calculated 117(H) <100 mg/dL [facility] Comment:Desirable LDL: less than 100 mg/dLNear Optimal/Above Optimal LDL: 110- 129 mg/dLBorderline High LDL: 130-159 mg/dLHigh LDL: 160-189 mg/dLVery High LDL: greater than or equal to 190 mg/dL HDL Cholesterol 42 >40 mg/dL [facility] Comment:Desirable HDL: great er than 40 mg/dL Note: This HDL assay may give artificially low results in patients with liver disease. Blood Venous blood specimen / Unknown 08/21/2024 3:49 PM EST 08/21/2024 5:42 PM EST Critical access hospital LAB BLOOD ORDERABLES Final Resul t [facility] [address] [place] [phone] * Chlamydia/N. Gonorrhoeae RNA, TMA, Urogenitial (08/21/2024 3:43 PM EST) CT PCR NOT DETECTED Not Detect. [facility] Comment:A not detected test result does not exclude the possibilityof infection because test results can be affected byimproper specimen collection, concurrent antibiotic therapy,or the number of organisms in the specimen which may bebelow the sensitivity of the test. As with many diagnostictests, results from the Xpert CT/NG assay should beinterpreted in conjunction with other laboratory andclinical data available to the clinician.Xpert CT/NG performance has not been evaluated in patientsless than 14 years of age. The assay should not be used forthe evaluationof suspected sexual abuse or for other medico-legalindications. Additional testing is recommended in anycircumstance when false positive or false negative resultscould lead to adverse medical, social or psychologicalconsequences. NG PCR NOT DETECTED Not Detect. [facility] Comment:A not detected test result does not exclude the possibilityof infection because test results can be affected byimproper specimen collection, concurrent antibiotic therapy,or the number of organisms in the specimen which may bebelow the sensitivity of the test. As with many diagnostictests, results from the Xpert CT/NG assay should beinterpreted in conjunction with other laboratory andclinical data available to the clinician.Xpert CT/NG performance has not been evaluated in patientsless than 14 years of age. The assay should not be used forthe evaluationof suspected sexual abuse or for other medico-legalindications. Additional testing is recommended in anycircumstance when false positive or false negative resultscould lead to adverse medical, social or psychologicalconsequences. 08/21/2024 3:43 PM EST 08/21/2024 5:42 PM EST Narrative [facility] - 08/22/2024 7:13 AM EST Urine Critical access hospital LAB MICROBIOLOGY - GENERAL ORDER CHHAYA Final Result [facility] [address] [place] [phone] [phone] from Last 3 Months Insurance [facility] C3 [facility] MEDICAID STAND ADULT * Guarantor: Nii Lerma Account Type Relation to Patient Date of Phone Billing Address Personal/Family Self [address] [facility] [place] Care Teams Floor Manager Relationship Specialty Start Date End Date Mariana Fowler ANP [address] [place] [phone] PCP - General Family Medicine 09/14/20 Savanna Bhatt NP [address] [place] [address] Urology 08/21/24
--- OUTSIDE RECORDS SUMMARY | 2024-11-04 16:21 | XMS_ITS | Encounter Summary ---
Author Organization [facility] Address [address] [place] [address] Care Team Providers Care Post Graduate Intern Name Role Phone Oneida Griffin Primary Care Provider Julio Rahman Unavailable Unavailable Savanna Bhatt STOCKBROKER Unavailable Reason for Visit * Reason Onset Date Comments Med Refill 12/28/2022 Encounter Details Date Type Department Care Team (Late st Contact Info) Description 12/28/[address] [facility] [address] [place], [place] [phone] Oneida Griffin ANP [address] [place], [place] [phone] Med Refill Social History Tobacco Use Types [...] Telephone Encounter - Arlin White RN - 12/28/2022 3:42 PM EDT Pt stated provider told him to call back and ask for more clindamycin of it doesn't get smaller . Queued med, only reference of status check in chart. * Telephone Encounter - Elizabeth Abbasi LPN - 12/28/2022 3:18 PM EDT Medication pended to PCP awaiting approval. * Telephone Encounter - Raya Robles - 12/28/2022 2:19 PM EDT Tc from pt requesting med refill on albuterol 108 (90 Base) MCG/ACT inhaler lidocaine (Lidoderm) 5 % patch Please sent to [facility] - [place], [place] - [address] [place] [address] documented in this encounter Plan of Treatment Upcoming Encounters Date Type Department Care Team (Late st Contact Info) Description 11/08/2024 11:30 AM EST Clinical Support [facility] [address] [place] [address] Flavia Gunter RN [address] [place] [address] documented as of this encounter Visit Diagnoses Diagnosis Abscess of left leg Abscess of chin Cellulitis and abscess of face documented in this encounter Additional Health Concerns Assessment Noted Time PHQ-9 Depression Total Score: 8 12/20/19 23 9:49 AM EDT documented as of this encounter Care Teams Post Graduate Intern Relationship Specialty Start Date End Date Oneida Griffin ANP [address] [place] [phone] PCP - General Family Medicine 09/14/20 Julio Rahman FNP [address] [place] [address] Nurse Practitioner Family Medicine 08/21/23 08/20/24 Savanna Bhatt NP [address] [place] [address] Urology 08/21/24 documented as of this encounter
--- OUTSIDE RECORDS SUMMARY | 2024-11-04 16:21 | XMS_ITS | Encounter Summary ---
Author Organization [facility] Address [address] [place] [address] Care Team Providers Care Mild Disabilities Teacher Name Role Phone Oneida Griffin Primary Care Provider [phone] Savanna Bhatt DRESSMAKER HELPER Unavailable Reason for Visit * Reason Comments Med Refill Encounter Details Date Type Department Care Team ([facility] st Contact Info) Description 09/30/2024 Refill [facility] [address] [place], [place] [phone] Oneida Griffin ANP [address] [place] [address] Constipation, unspecified constipation type Social History Tobacco Use Types Packs/Day Years [...] Description 11/08/2024 11:30 AM EST Clinical Support [facility] [address] [place] [address] Flavia Gunter RN [address] [place] [address] documented as of this encounter Goals Goal [...] as of this encounter Visit Diagnoses Diagnosis Constipation, unspecified constipation type documented in this encounter Additional Health Concerns Assessment Noted Time PHQ-9 Depression Total Score: 12 024 9:53 AM EDT documented as of this encounter Care Teams Mild Disabilities Teacher Relationship Specialty Start Date End Date Oneida Griffin ANP [address] [place] [address] PCP - General Family Medicine 09/14/20 Savanna Bhatt NP [address] [place] [address] Urology 08/21/24 documented as of this encounter
== END 2024-11-04 15:12 | disposition home or self-care (01) ==
PROVIDERS: PCP Nurse Practitioner Primary Care; Visit Provider Anesthesiology
DX: E11.618 Type 2 diabetes mellitus with other diabetic arthropathy (principal); F17.200 Nicotine dependence, unspecified, uncomplicated; G89.4 Chronic pain syndrome; M79.7 Fibromyalgia; M25.562 Pain in left knee; M17.12 Unilateral primary osteoarthritis, left knee
CPT/HCPCS: 99213

== ENCOUNTER → 2024-11-04 14:45 | Outpatient (BNVA) | payer MEDICAID, SELFPAY | PROVIDERS: PCP Nurse Practitioner Primary Care; Visit Provider Anesthesiology | DX: E11.618 Type 2 diabetes mellitus with other diabetic arthropathy (principal); M79.7 Fibromyalgia; M17.12 Unilateral primary osteoarthritis, left knee; F17.200 Nicotine dependence, unspecified, uncomplicated; G89.4 Chronic pain syndrome | CPT/HCPCS: 99212 ==

== ENCOUNTER → 2024-11-05 10:23 | Outpatient (BNVA) | payer MEDICAID, SELFPAY | PROVIDERS: PCP Nurse Practitioner Primary Care; Visit Provider Surgery | DX: R10.84 Generalized abdominal pain (principal); K80.20 Calculus of gallbladder without cholecystitis without obstruction; K59.00 Constipation, unspecified | CPT/HCPCS: 99212 ==

== ENCOUNTER 2024-12-25 13:49 | Outpatient (AMB) | payer MEDICAID, SELFPAY ==
--- NOTE | 2024-12-25 14:08 | MHC.OFFVIS ---
Vital Signs 12/25/24 14:10 Height 5 ft 8 in Weight 219 lb 5.759 oz BMI 33.3 BP 146/82 H Blood Pressure Location Rt brachial Position Sitting Pulse 70 Pulse Source Pulse Oximeter Pulse Oximetry (%) 98 Oxygen Delivery Method Room Air Intake Visit Reasons: Constipation + GERD mgmt. R/S Intake Note: ESTABLISHED PATIENT for mgmt of constipation. Chief Complaint; C/O persistent / chronic LUQ pain, constipation w/o concern for hemorrhoids. Pt denies any additional concerns or sx at this time and confirms medications still active. Branch Customer Service Representative Required: No Accompanied by: Self / Same As Patient Allergies Penicillins [PENICILLINS] Allergy (Unknown, Verified 01/02/25 09:04) SWELLING HPI HPI Constipation + GERD mgmt. R/S: Details: LAST VISIT: Constipation Plan Patient reports constipation and left lower quadrant pain. Nontender normal exam. Script for Dulcolax sent for patient. Patient denies any cardiac or respiratory symptoms.? Denies any issues with anesthesia in the past.? Denies any history of sleep apnea.? No history infectious diseases in the past or present.? Patient is on low-dose aspirin.? No family or personal history of colon cancer or polyps.? Patient denies melena, hematochezia, unintentional weight loss or ribbon like stools.? Message sent to surgical schedulers to book procedure for patient. However patient will return in 2 months to re-evaluate and to discuss the prep. He is agreeable to this plan and verbalizes understanding of instructions. He was given the opportunity to ask questions and all questions answered. ? Thank you for allowing me to participate in his care Medications New bisacodyl (Dulcolax (bisacodyl)) 10 mg (2 x 5 mg) PO BEDTIME 180 tabs 4RF TODAY'S VISIT Patient is here today for follow-up and to discuss prep. Patient continues to be constipated. Denies melena, hematochezia, unintentional weight loss or ribbon like stools. No issues with anesthesia in the past. Patient is on low-dose aspirin. No history of sleep apnea. Patient denies any acid reflux, dyspepsia, dysphagia or odynophagia. Procedures scheduled for the beginning of December [facility] Medical History Obesity (BMI 30-39.9) Left arm pain Major depression Decreased vision Anxiety Hypercholesterolemia Essential hypertension Type 2 diabetes mellitus with complication, without long-term current use of insulin Chronic midline low back pain without sciatica ESME (obstructive sleep apnea) Dizziness Surgical History History of kidney surgery Hx of hernia repair Hx of appendectomy Family History Maternal Aunt Cancer of unknown origin Social History Are you a primary career representative to a significant other at home: No Do you presently have visiting nurse or other home services: No Alcohol intake: never Patient Tobacco Use Status: Current everyday Tobacco user Tobacco use type: Cigarette Review of Systems Const Denies weight gain and Denies weight loss ENT Reports no additional complaints, Denies dysphagia and Denies odynophagia Card Reports no additional complaints Resp Reports no additional complaints GI Reports abdominal pain (LUQ), Denies belching, Denies melena, Denies bloating, Denies change in bowel habits, Reports constipation, Denies dysphagia, Denies excessive flatus, Denies dyspepsia, Denies heartburn, Denies diarrhea, Denies loose stools, Denies nausea, Denies odynophagia and Denies vomiting Reports no additional complaints Musc Reports no additional complaints Neuro Reports no additional complaints Psych Reports no additional complaints Endo Reports no additional complaints Physical Exam Vital Signs: Last Vital Signs Pulse 70 12/25/24 14:10 BP 146/82 H 12/25/24 14:10 Pulse Ox 98 12/25/24 14:10 Oxygen Delivery Method Room Air 12/25/24 14:10 BMI result Body Mass Index 33.3 Const General: healthy appearing and no acute distress Nutritional Appearance: obese Orientation/consciousness: patient oriented x3 Resp Effort & Inspection: normal respiratory effort, able to speak in complete sentences, no tracheal deviation and symmetric chest movement Auscultation: clear to auscultation bilaterally Cardio Rate: regular rate GI Inspection: Yes normal to inspection, No distended and Yes obesity Palpation (GI): Soft to palpation, not firm, nontender and No hepatosplenomegaly present Auscultation: normal bowel sounds General: Yes no CVA tenderness Back/Spine/Pelvis Back: no CVA tenderness Skin General skin exam: elasticity normal, turgor normal and dry skin Neuro General: patient oriented x3 Psych Appearance: grossly normal Mental Status: mental status grossly normal Insight: Good insight present (Psych) Judgement: Good judgement present (Psych) Assessment & Plan Assessment & Plan (1) Cholelithiasis: Code(s): K80.20 - Calculus of gallbladder without cholecystitis without obstruction Category: Medical Qualifiers: Cholelithiasis location: gallbladder Cholecystitis presence: without cholecystitis Biliary obstruction: without biliary obstruction Qualified Code(s): K80.20 - Calculus of gallbladder without cholecystitis without obstruction (2) Constipation: Code(s): K59.00 - Constipation, unspecified Category: Medical Qualifiers: Constipation type: slow transit constipation Qualified Code(s): K59.01 - Slow transit constipation (3) Screen for colon cancer: Code(s): Z12.11 - Encounter for screening for malignant neoplasm of colon Plan Patient has Dulcolax at home will send the MiraLax to pharmacy. He continues to be constipated will start him on Linzess 145 mcg if helpful but not effective will increase the dose. Procedures schedule for the 02 of January. What to expect before during and after procedure discussed with patient. Stressed the importance of good bowel prep and clear liquid diet day before procedure. I will see him after the procedure, sooner on as needed basis. He is agreeable to this plan and verbalizes understanding of instructions. He was given the opportunity to ask questions and all questions answered. Thank you for allowing me to participate in his care Medications: New polyethylene glycol 3350 (Miralax) As directed by gastroenterology department at [facility] 238 grams PO ONCE 238 grams 0RF Z12.11 - Encounter for screening for malignant neoplasm of colon linaclotide (Linzess) 145 mcg PO DAILY 30 caps 4RF K59.04 - Chronic idiopathic constipation Coding Level of Care Code Est Pt Level 4 (87795) Diagnoses Calculus of gallbladder without cholecystitis without obstruction K80.20 Cholelithiasis location: gallbladder Cholecystitis presence: without cholecystitis Biliary obstruction: without biliary obstruction Slow transit constipation K59.01 Constipation type: slow transit constipation Screen for colon cancer Z12.11 Time Spent (min) 35 Comment 25 minute spent with patient and additional 10 minutes spent reviewing his records
[2024-12-25 14:10] VITALS: BP 146/82; PULSE 70; O2SAT 98; BMI 33.3
== END 2024-12-25 14:54 | disposition home or self-care (01) ==
LOC: HO.HGI 13:50
PROVIDERS: PCP Nurse Practitioner Primary Care; Visit Provider Nurse Practitioner Family
DX: K80.20 Calculus of gallbladder without cholecystitis without obstruction (principal); K59.01 Slow transit constipation
CPT/HCPCS: 99214

== ENCOUNTER → 2024-12-25 13:49 | Outpatient (BNVA) | payer MEDICAID, SELFPAY | PROVIDERS: PCP Nurse Practitioner Primary Care; Visit Provider Nurse Practitioner Family | DX: K21.9 Gastro-esophageal reflux disease without esophagitis (principal); K80.20 Calculus of gallbladder without cholecystitis without obstruction; K59.01 Slow transit constipation; K59.04 Chronic idiopathic constipation | CPT/HCPCS: 99212 ==

== ENCOUNTER 2025-01-02 08:52 | Day surgery (SDC) | payer MEDICAID, SELFPAY ==
--- NOTE | 2025-01-01 09:16 | P.CONAN_ITS ---
Documented by User: Edith Fine NP 01/01/25 09:16 HPI - Anesthesia Eval Consult details Narrative: 54yo M for Colonoscopy PMF Active Problems Active Problems: All Active Problems Cholelithiasis (Acute) Constipation (Acute) Cubital tunnel syndrome, bilateral (Acute) Bilateral carpal tunnel syndrome (Acute) Hydronephrosis (Acute) Abdominal pain (Acute) Arthritis of left knee (Acute) Left knee pain (Acute) Fibromyalgia (Acute) Chronic pain syndrome (Acute) Smoking addiction (Acute) Diabetic arthropathy (Acute) Past Medical History Medical History Obesity (BMI 30-39.9) Left arm pain Major depression Decreased vision Anxiety Hypercholesterolemia Essential hypertension Type 2 diabetes mellitus with complication, without long-term current use of insulin Chronic midline low back pain without sciatica ESME (obstructive sleep apnea) Dizziness Family History Family History Maternal Aunt Cancer of unknown origin Surgical History Surgical History History of kidney surgery Hx of hernia repair Hx of appendectomy Social History Social History Are you a primary workforce investment act career manager to a significant other at home: No Do you presently have visiting nurse or other home services: No Alcohol intake: never Patient Tobacco Use Status: Current everyday Tobacco user Tobacco use type: Cigarette Smoked in Last 30 Days: Yes Patient Interested in Nicotine Replacement: No Have you been hit, kicked, punched, or otherwise hurt by someone within the past year? If so, by whom?: No Are you DNR?: No Advance Directives: No Advance Directives Information Provided: Yes Poor oral hygiene: No Meds Allergies Allergy/AdvReac Type Severity Reaction Status Date / Time Penicillins [PENICILLINS] Allergy Unknown SWELLING Verified 01/02/25 09:04 Home Medications ?Medication ?Instructions ?Recorded ?Confirmed ?Last Taken ?Type albuterol sulfate 90 mcg/actuation 2 puff inhalation Q4-6H PRN 07/28/23 01/02/25 Unknown History aerosol inhaler (Ventolin HFA) Bronchospasm amlodipine 10 mg tablet 10 mg PO DAILY 07/28/23 01/02/25 01/02/25 History aripiprazole 10 mg tablet 10 mg PO QAM 07/28/23 01/02/25 Unknown History atorvastatin 80 mg tablet 80 mg PO DAILY 07/28/23 01/02/25 Unknown History blood sugar diagnostic (FreeStyle #10 ea 07/28/23 11/05/24 Unknown History Lite Strips) carvedilol 3.125 mg tablet 3.125 mg PO BID 07/28/23 01/02/25 01/02/25 History enalapril maleate 20 mg tablet 20 mg PO QAM 07/28/23 01/02/25 01/02/25 History glipizide 10 mg tablet 10 mg PO 07/28/23 11/05/24 Unknown History lancets 33 gauge (Easy Touch Twist #100 ea 07/28/23 11/05/24 Unknown History Lancets) aspirin 81 mg tablet,delayed 81 mg PO DAILY 01/30/24 01/02/25 Unknown History release dorzolamide 22.3 mg-timolol 6.8 1 drp ophthalmic (eye) BID 10/15/24 01/02/25 Unknown History mg/mL eye drops sildenafil 100 mg tablet (Viagra) 100 mg PO DAILY PRN Erectile 10/15/24 01/02/25 Unknown History Dysfunction trazodone 100 mg tablet 100 mg PO BEDTIME 10/15/24 01/02/25 Unknown History vitamin B complex-folic acid 0.4 1 tab PO DAILY 10/15/24 01/02/25 Unknown History mg tablet (B Complex 1 (with folic acid)) bupropion HCl 300 mg 24 hr tablet, 300 mg PO QAM 12/25/24 01/02/25 Unknown History extended release naloxone 4 mg/actuation nasal spray intranasal 12/25/24 Unknown History Assessment and Plan Assessment Anesthesia Assessment: Chart Reviewed Documented by User: Mervat Nicolas MD 01/02/25 10:51 PMFSH Past Medical History Medical History Obesity (BMI 30-39.9) Left arm pain Major depression Decreased vision Anxiety Hypercholesterolemia Essential hypertension Type 2 diabetes mellitus with complication, without long-term current use of insulin Chronic midline low back pain without sciatica ESME (obstructive sleep apnea) Dizziness Family History Family History Maternal Aunt Cancer of unknown origin Surgical History Surgical History History of kidney surgery Hx of hernia repair Hx of appendectomy History of Problems with Anesthesia: No Social History Social History Are you a primary workforce investment act career manager to a significant other at home: No Do you presently have visiting nurse or other home services: No Alcohol intake: never Patient Tobacco Use Status: Current everyday Tobacco user Tobacco use type: Cigarette Smoked in Last 30 Days: Yes Patient Interested in Nicotine Replacement: No Have you been hit, kicked, punched, or otherwise hurt by someone within the past year? If so, by whom?: No Are you DNR?: No Advance Directives: No Advance Directives Information Provided: Yes Poor oral hygiene: No Meds Allergies Allergy/AdvReac Type Severity Reaction Status Date / Time Penicillins [PENICILLINS] Allergy Unknown SWELLING Verified 01/02/25 09:04 Home Medications ?Medication ?Instructions ?Recorded ?Confirmed ?Last Taken ?Type albuterol sulfate 90 mcg/actuation 2 puff inhalation Q4-6H PRN 07/28/23 01/02/25 Unknown History aerosol inhaler (Ventolin HFA) Bronchospasm amlodipine 10 mg tablet 10 mg PO DAILY 07/28/23 01/02/25 01/02/25 History aripiprazole 10 mg tablet 10 mg PO QAM 07/28/23 01/02/25 Unknown History atorvastatin 80 mg tablet 80 mg PO DAILY 07/28/23 01/02/25 Unknown History blood sugar diagnostic (Ignacioyle #10 ea 07/28/23 11/05/24 Unknown History Lite Strips) carvedilol 3.125 mg tablet 3.125 mg PO BID 07/28/23 01/02/25 01/02/25 History enalapril maleate 20 mg tablet 20 mg PO QAM 07/28/23 01/02/25 01/02/25 History glipizide 10 mg tablet 10 mg PO 07/28/23 11/05/24 Unknown History lancets 33 gauge (Easy Touch Twist #100 ea 07/28/23 11/05/24 Unknown History Lancets) aspirin 81 mg tablet,delayed 81 mg PO DAILY 01/30/24 01/02/25 Unknown History release dorzolamide 22.3 mg-timolol 6.8 1 drp ophthalmic (eye) BID 10/15/24 01/02/25 Unknown History mg/mL eye drops sildenafil 100 mg tablet (Viagra) 100 mg PO DAILY PRN Erectile 10/15/24 01/02/25 Unknown History Dysfunction trazodone 100 mg tablet 100 mg PO BEDTIME 10/15/24 01/02/25 Unknown History vitamin B complex-folic acid 0.4 1 tab PO DAILY 10/15/24 01/02/25 Unknown History mg tablet (B Complex 1 (with folic acid)) bupropion HCl 300 mg 24 hr tablet, 300 mg PO QAM 12/25/24 01/02/25 Unknown History extended release naloxone 4 mg/actuation nasal spray intranasal 12/25/24 Unknown History Exam Airway Mallampati Class: III TM Dist: >3cm Neck ROM: Full Loose/Missing/Broken Teeth: No Heart: RRR Lungs: CTA Assessment and Plan Assessment Anesthesia Assessment: Anesthesia Plan Discussed Final Anesthetic Review History of Problems with Anesthesia: No NPO: Yes ASA Class: III Final Preanesthetic Review: Meds/Allgs Chart Reviewed, Consent Obtained/Reviewed and Anes Risks/Benef Reviewed Patient Risk: Intermediate Procedure Risk: Low Anesthetic Plan Anesthetic Plan: MAC: Disposition: Standard PACU
[2025-01-02 09:08] VITALS: BMI 33.1
--- NOTE | 2025-01-02 09:28 | MHC.SHP ---
Pre-Procedural Eval Section A - 24 Hr Update-Section A only Date of Service: 01/02/25 Section B - Complete if H&P > 30 days Chief Complaint: Slow transit constipation,screening Relevant Family History (Specify if Yes): No Relevant Social History: Tobacco Use Present Medications: see Short Stay Collaborative assessment Medical History: Significant History (Obesity (BMI 30-39.9) Left arm pain Major depression Decreased vision Anxiety Hypercholesterolemia Essential hypertension Type 2 diabetes mellitus with complication, without long-term current use of insulin Chronic midline low back pain without sciatica ESME (obstructive sleep apnea) Dizziness) History of Previous Operations: Relevant previous surgery/procedure and date(s) (appendectomy, hernia repair ) Allergies: Allergies Allergy/AdvReac Type Severity Reaction Status Date / Time Penicillins [PENICILLINS] Allergy Unknown SWELLING Verified 01/02/25 09:04 Review of Systems Sugical H&P ROS: Negative: Constitution, Cardiovascular, Respiratory, Neurological, Psychiatric, Hem-Onc, Allergic/Immunologic, Gastrointestinal, Genitourinary, Musculoskeletal, Integumentary, Endocrine and Eyes/Ears/Nose/Throat Exam Surgical H&P Exam: Normal: HEENT, Normal: Heart, Normal: Lungs, Normal: Extremities, Normal: Abdomen, Normal: Skin and Normal: Neurological Plan Diagnosis/Plan: Unchanged I have reviewed the history and physical and performed a pertinent physical examination on my patient. No changes have occurred unless specified. Time Spent With Patient Time: Total time managing care of this patient today ____ minutes.
[2025-01-02] MEDS: Lactated Ringers 1,000 ML 100 ML IVCONT (09:36)
[2025-01-02 09:37] VITALS: BP 159/93; PULSE 98; RESP 18; TEMP 36.7; O2SAT 99
[2025-01-02 09:37] LABS: Glucose, Whole Blood 176 mg/dL (60-115)
--- NOTE | 2025-01-02 11:15 | P.OPN-COLO_ITS ---
Colonoscopy Operative Note Operative Note Date of Service: 01/02/25 Narrative: Operative Information Procedure Description: Colonoscopy Indication: screening Anesthesia: MAC COLONOSCOPY Instrument: Olympus variable stiffness adult scope 190L Colonoscopy Monitoring: Vital signs and clinical assessment, continuous EKG monitoring, Pulse oximetry, Carbon Dioxide monitoring and blood pressure monitoring were done throughout the procedure. Colon withdrawal time was 13 minutes. Procedure: The patient was placed in the left lateral decubitis position and pre-procedure medications were administered. After a digital rectal examination of the ano-rectum, the video colonoscope was inserted into the rectum and advanced through the colon to the cecum/TI. The colonoscope was slowly withdrawn in a retrograde panoramic fashion and the colon mucosa was carefully examined including a retroflexed view of the rectum. Findings and interventions are described below. Procedure Difficulty: easy Findings: Terminal Ileum-normal Cecum: 8-9 mm sessile polyp lifted with eleview and removed with cold snare Ascending Colon: x1 sessile polyp 6-8 mm removed with cold snare, x 1 sessile polyp 3-4 mm removed with cold forceps, x 1 semi pedunculated polyp 23-25 mm injected with eleview and removed with hot snare and x 1 clip applied to close defect. Transverse Colon - x1 sessile polyp 5-8 mm removed with cold snare Descending Colon:normal Sigmoid Colon: normal Rectum: Retroflexion with small internal hemorrhoids seen, grade I Anorectum - normal Intervention: cold snare, hot snare and eleview injection with EMR, cold forceps, clip placement Colon preparation: [place] Bowel Preparation Scale Right colon; 2 Transverse colon: 2 Left colon; 2 (0 = Unprepared colon segment with mucosa not seen due to solid stool that cannot be cleared. 1 = Portion of mucosa of the colon segment seen, but other areas of the colon segment not well seen due to staining, residual stool and/or opaque liquid. 2 = Minor amount of residual staining, small fragments of stool and/or opaque liquid, but mucosa of colon segment seen well. 3 = Entire mucosa of colon segment seen well with no residual staining, small fragments of stool or opaque liquid) Impression and Post Procedure Diagnosis: colon polyps x 5 internal hemorrhoids Plan: High fiber diet leaflet Avoid straining at stool, epsom salts and sitz bath, anusol supps or cream Repeat Colonoscopy in 1-2 years or earlier if clinically indicated Above findings were reviewed with the patient and relevant handouts were provided if indicated.
[2025-01-02 11:20] VITALS: BP 140/78; PULSE 77; RESP 18; TEMP 36.6; O2SAT 99
[2025-01-02 11:35] VITALS: BP 142/87; PULSE 73; RESP 18; O2SAT 99
[2025-01-02 11:45] VITALS: TEMP 36.6
== END 2025-01-02 12:21 | disposition home or self-care (01) ==
PROVIDERS: PCP Nurse Practitioner Primary Care; Visit Provider Internal Medicine Gastroenterology
PROC: 0DJD8ZZ Inspection of Lower Intestinal Tract, Via Natural or Artificial Opening Endoscopic (ICD-10-PCS; CPT 45378; principal; 2025-01-02 10:20)
DX: Z12.11 Encounter for screening for malignant neoplasm of colon (principal); D12.2 Benign neoplasm of ascending colon; K64.0 First degree hemorrhoids; K59.04 Chronic idiopathic constipation; E11.9 Type 2 diabetes mellitus without complications; I10 Essential (primary) hypertension; E78.00 Pure hypercholesterolemia, unspecified; K21.9 Gastro-esophageal reflux disease without esophagitis; G47.33 Obstructive sleep apnea (adult) (pediatric); F17.200 Nicotine dependence, unspecified, uncomplicated; Z79.82 Long term (current) use of aspirin
CPT/HCPCS: 45385; 45381; 45380; 82947; 88305; J2003; J2704

== ENCOUNTER → 2025-01-02 08:52 | Outpatient (BNV) | payer MEDICAID, SELFPAY | PROVIDERS: PCP Nurse Practitioner Primary Care; Visit Provider Internal Medicine Gastroenterology | DX: Z12.11 Encounter for screening for malignant neoplasm of colon (principal); D12.2 Benign neoplasm of ascending colon; K64.0 First degree hemorrhoids | CPT/HCPCS: 45380; 45381; 45385 ==

== ENCOUNTER 2025-05-30 10:09 | Emergency (ER) | payer MEDICAID, SELFPAY ==
--- NOTE | ~2025-05-30 | CT_ITS ---
EXAMINATION: CT HEAD WITHOUT IV CONTRAST HISTORY: headache, dizziness. TECHNIQUE: Unenhanced helical CT of the head was performed per standard departmental protocol. Coronal and sagittal reformats of the head were also evaluated. One or more of the following techniques was used for dose reduction: Automated exposure control, adjustment of the mA and/or kV according to patient size, use of iterative reconstruction technique. DLP: 761 mGy-cm COMPARISON: There are no prior studies available for comparison. FINDINGS: BRAIN: There are periventricular and subcortical white matter hypodensities which are nonspecific, but often seen in the setting of small vessel ischemic disease. There is no mass effect or midline shift. The ventricular system is normal in size and configuration. No intra- or extra-axial fluid collections are identified. SINUSES: The visualized paranasal sinuses are clear. The mastoid air cells and middle ear cavities are well pneumatized. ORBITS: The visualized orbits are unremarkable. BONES/SOFT TISSUES: The extracranial soft tissues are unremarkable. The calvarium is intact. No suspicious lytic or sclerotic lesions. CT/CT head/brain wo IV con IMPRESSION: No evidence of intracranial hemorrhage. If there is clinical concern for an acute infarct, MRI is more sensitive. Electronically signed by: Arsenio Rodriguez MD 05/30/2025 11:41 AM EDT
--- OUTSIDE RECORDS SUMMARY | 2025-05-30 08:30 | XMS_ITS | Encounter Summary ---
Author Organization [employer] Address [address] [facility] [address] [place] [address] Care Team Providers Care Construction Flagger Name Role Phone Elias Oneida MEDRANO Primary Care Provider [phone] Savanna Bhatt OIL AND GAS SPECIALIST Unavailable Reason for Visit * Reason Comments Extraction Encounter Details Date Type Department Care Team ([facility] Contact Info) Description 05/30/2025 8:30 AM EDT Office Visit [facility] [address] [place] [address] Mathew Mena Social History Tobacco Use Types Packs/Day Years Used Date Smoking Tobacco: Every Day Cigarettes Passive Smoke Exposure: Current Smokeless Tobacco: Never Alcohol Use Standard Drinks/Week Comments Never 0 (1 standard drink = 0.6 oz pur e alcohol) Depression Answer Date Recorded Patient Health Questionnaire-9 Score 17 05/01/2025 Patient Health Questionnaire-9 Score 17 05/01/2025 Last PHQ-9: Questionnaire Data Not on file 0 05/01/2025 Housing Stability Answer Date Recorded What is [...] got money to buy more: Never True 05/01/2025 Within the past 12 months,th e food [...] Date Recorded Patient Health Questionnaire-2 Score 6 05/01/2025 Internet Access Answer Date Recorded Internet Access Q1 No 05/01/2025 Internet Access Q2 I do not want or need it 04/03 Sex and Gender Information Value Date Recorded Sex Assigned at Male 08/01/2022 10:31 AM EDT Legal Sex Male 10:31 AM EDT Gender Identity Male 08/01/2022 10:31 AM EDT Sexual Orientation Straight 08/01/2022 10 :31 AM EDT documented as of this encounter Last Filed Vital Signs Vital Sign Reading Time Taken Comments Blood Pressure 170/94 05/30/2025 8:52 AM EDT Pulse - - Temperature - - Respiratory Rate - - Oxygen Saturation - - Inhaled Oxygen Concentration - - Weight - - Height - - Body Mass Index - - documented in this encounter Progress Notes * Mathew Mena - 05/30/2025 8:30 AM EDT Procedure Date: 05/30/2025 Performed by: Mathew Mena Imaging Analyst: Berna Mace Patient presented for extraction of the remaining root tips of #3 and broken #31. Initial blood pressure reading at 08:44 was 170/90, followed by 170/94 at 08:52. Patient denied to use the restroom and stated that he doesn't feel his best. He stated he had a headache and his blood pressure will likely be high today. It was explained to him to contact his PCP to help him decrease his blood pressure further, as his current medication seems to be less effective. He stated he has to meet with his doctor anyway, and he will talk about today's visit to his doctor as well. Patient said that he would like to re-schedule for an afternoon visit next week. Patient left in good condition. NV: Ext #[id number],31 Cosigned by Collin Aparicio DDS at 05/30/2025 10:24 AM EDT Associated attestation - Collin Aparicio, DDS - 05/30/2025 10:[address] Markus Ledbetter documented in this encounter Plan of Treatment Upcoming Encounters Date Type Department Care Team (Late st Contact Info) Description 06/04/2025 2:30 PM EDT Clinical Support [facility] MEDICINE [address] [place] [address] 06/05/2025 1:00 PM EDT Office Visit [facility] ADULT D[facility]AL [address] [place] [phone] 07/31/2025 2:30 PM EDT Office Visit [address] [address] Oneida Griffin ANP [address] [place] [phone] 08/01/2025 10:30 AM EDT Clinical Support [address] [address] Flavia Gunter, RN [address] [place] [address] documented as of this encounter Goals Goal Patient Goal Type Associated Problems Recent Progress Patient-Stated? Author Record your blood pressure once per day Blood Pressure No Monica Orourke Blood Pressure < 140/90 Blood Pressure 170/94(2024 8:52 AM EDT) No Monica Orourke Patient will adhere to medication regimen General No Monica Orourke Hemoglobin A1c < 7 Result Component 7.9( 1:39 PM EDT) No Monica Orourke documented as of this encounter Procedures Procedure Name Priority Date/Time Associated Diagnosis Comments OFFICE VISIT FOR OBSERVATION (DURING REGULARLY SCHEDULED HOURS) - NO OTHER SERVICES PERFORMED Routine 05/30/2025 8:30 AM EDT documented in this encounter Visit Diagnoses Not on filedocumented in this encounter Additional Health Concerns Assessment Noted Time PHQ-9 Depression Total Score: 17 025 1:19 PM EDT documented as of this encounter Care Teams Construction Flagger Relationship Specialty Start Date End Date Oneida Griffin ANP [address] [place] [address] PCP - General Family Medicine 09/14/20 Savanna Bhatt NP [address] [place] [address] Urology 08/21/24 Paco Trejo Secondary Connector Armature 01/15/25 documented as of this encounter
[2025-05-30 10:13] VITALS: BP 202/95; PULSE 72; RESP 16; TEMP 37; O2SAT 97; BMI 33.8
--- NOTE | 2025-05-30 11:01 | ECG_ITS ---
Test Reason : high bp Blood Pressure : */* mmHG Vent. Rate : 63 BPM Atrial Rate : 63 BPM P-R Int : 166 ms QRS Dur : 136 ms QT Int : 440 ms P-R-T Axes : 13 -63 90 degrees QTcB Int : 450 ms Normal sinus rhythm Right bundle branch block Left anterior fascicular block Bifascicular block Abnormal ECG When compared with ECG of 23-Dec-2023 20:08, No significant change was found Referred By: Berna Ruiz Electronically Signed By: RAFFAELE LAGUNAS
--- NOTE | 2025-05-30 11:02 | ED.GENADULT ---
HPI - General Adult General Chief complaint: General Medical Stated complaint: high bp Time Seen by Provider: 05/30/25 10:59 Source: patient and old records reviewed Mode of arrival: ambulatory Limitations: no limitations History of Present Illness ED Provider: WILLIAMS WADE narrative: 55 yo male with PMH of diabetes, HTN, depression, anxiety, ESME who is not on any blood thinners notes he went to the dentist today and they noted his BP was over 200s. He went to wound care center for R leg chronic wound that has been healing well - cwound care is happy with it. He notes they checked his BP there and it was also elevated at 200. He states he has no chest pain but has mild dull headache and nausea that started yesterday. He notes that for 2 weeks his BP has been 180s over something. He has no numbness or weakness, no chest pain or trouble breathing. He reports sig compliance with all of his medications and doesn't miss. He denies any OTC allergy meds and no drug use. MD complaint: HTN/headache Onset (ago): day(s) (1) Location: head Radiation: non-radiation Severity: mild Quality: aching Pain Consistency: constant Relieving factors: none Exacerbating factors: none Associated symptoms: nausea/vomiting Treatments prior to arrival: none Related Data Home Medications ?Medication ?Instructions ?Recorded ?Confirmed albuterol sulfate 90 mcg/actuation 2 puff inhalation Q4-6H PRN 07/28/23 01/02/25 aerosol inhaler (Ventolin HFA) Bronchospasm amlodipine 10 mg tablet 10 mg PO DAILY 07/28/23 01/02/25 aripiprazole 10 mg tablet 10 mg PO QAM 07/28/23 01/02/25 atorvastatin 80 mg tablet 80 mg PO DAILY 07/28/23 01/02/25 blood sugar diagnostic (FreeStyle #10 ea 07/28/23 11/05/24 Lite Strips) carvedilol 3.125 mg tablet 3.125 mg PO BID 07/28/23 01/02/25 enalapril maleate 20 mg tablet 20 mg PO QAM 07/28/23 01/02/25 glipizide 10 mg tablet 10 mg PO 07/28/23 11/05/24 lancets 33 gauge (Easy Touch Twist #100 ea 07/28/23 11/05/24 Lancets) aspirin 81 mg tablet,delayed 81 mg PO DAILY 01/30/24 01/02/25 release dorzolamide 22.3 mg-timolol 6.8 1 drp ophthalmic (eye) BID 10/15/24 01/02/25 mg/mL eye drops sildenafil 100 mg tablet (Viagra) 100 mg PO DAILY PRN Erectile 10/15/24 01/02/25 Dysfunction trazodone 100 mg tablet 100 mg PO BEDTIME 10/15/24 01/02/25 vitamin B complex-folic acid 0.4 1 tab PO DAILY 10/15/24 01/02/25 mg tablet (B Complex 1 (with folic acid)) bupropion HCl 300 mg 24 hr tablet, 300 mg PO QAM 12/25/24 01/02/25 extended release naloxone 4 mg/actuation nasal spray intranasal 12/25/24 Previous Rx's ?Medication ?Instructions ?Recorded lidocaine 5 % topical patch 1 patch topical DAILY #15 ea 10/30/23 tramadol 50 mg tablet 50 mg PO BID PRN pain (scale score 02/13/24 7-10) #30 tabs methocarbamol 750 mg tablet 750 mg PO TID 30 days #90 tabs 11/06/24 linaclotide 145 mcg capsule 145 mcg PO DAILY #30 caps 12/25/24 (Linzess) docusate sodium 100 mg capsule 100 mg PO BID #60 caps 01/14/25 (Colace) enalapril maleate 20 mg tablet 40 mg (2 x 20 mg) PO DAILY #30 tabs 05/30/25 Allergies Allergy/AdvReac Type Severity Reaction Status Date / Time Penicillins (PENICILLINS) Allergy Unknown SWELLING Verified 05/30/25 10:18 Review of Systems Review of Systems: Constitutional : No Fever, No Chills, No Fatigue ENT/Mouth : No sore throat, No Rhinorrhea Eyes: No Eye Pain, No Swelling, No Redness Cardiovascular : No Chest Pain, No SOB, No Dyspnea on Exertion Respiratory : No Cough, No Sputum Gastrointestinal : pos Nausea, No Vomiting, No Diarrhea, No abdominal Pain Genitourinary : No Dysuria, No Urinary Frequency, No Hematuria, Musculoskeletal : No joint pain, No Myalgias, No Joint Swelling Skin : No Skin Lesions, No rash Neuro : No Weakness, No Numbness, No Dizziness, positive Headache Psych : No Anxiety/Panic, No Depression All other systems reviewed and are negative [facility] Past Medical History Attestation statement: The following information was validated with the patient. Source: old records reviewed Medical History Obesity (BMI 30-39.9) Left arm pain Major depression Decreased vision Anxiety Hypercholesterolemia Essential hypertension Type 2 diabetes mellitus with complication, without long-term current use of insulin Chronic midline low back pain without sciatica ESME (obstructive sleep apnea) Dizziness Surgical History History of kidney surgery Hx of hernia repair Hx of appendectomy Family History Family History Maternal Aunt Cancer of unknown origin Social History Social History Are you a primary personal care service provider to a significant other at home: No Do you presently have visiting nurse or other home services: No Alcohol intake: never Patient Tobacco Use Status: Current everyday Tobacco user Tobacco use type: Cigarette Smoked in Last 30 Days: Yes Use of substances other than those prescribed or required for medical reasons: No Advance Directives: No Advance Directives Information Provided: Yes Physical Exam ED Vital Signs: Vital Signs - 24 hr 05/30/25 10:13 05/30/25 11:32 05/30/25 12:00 Temperature 98.6 F Pulse Rate 72 64 57 Respiratory Rate 16 16 14 Blood Pressure 202/95 H 183/100 H 160/88 H Pulse Oximetry 97 95 Oxygen Delivery Method Room Air Room Air 05/30/25 12:13 05/30/25 13:11 Temperature Pulse Rate 64 Respiratory Rate Blood Pressure 180/100 H 162/86 H Pulse Oximetry Oxygen Delivery Method BMI result Body Mass Index 33.8 Appearance: Alert. Oriented X3. No acute distress. Eyes: Pupils equal, round and reactive to light. ENT: Pharynx normal. Neck: Normal inspection. Neck supple. CVS: Normal heart rate and rhythm. Pulses normal. Respiratory: No respiratory distress. Breath sounds normal. Abdomen: Soft and nontender. Skin: Skin warm and dry. Normal skin color. Extremities: No lower extremity edema. Neuro: Oriented X 3. No motor deficit. No sensory deficit. Course Course Course Narrative: 1248pm BP down to 160s/80s feels much better will look at his medications to increase seems like his BP has been high for 2 weeks other than mild headache no end organ dysfunction Medications Administered Discontinued Medications Generic Name Dose Route Start Last Admin Trade Name Sarah PRN Reason Stop Dose Admin Labetalol HCl 5 mg 05/30/25 11:40 05/30/25 12:13 Labetalol Hcl 100 Mg/20 Ml Vial IVPUSH 05/30/25 11:41 5 mg ONCE ONE Administration Ondansetron HCl 4 mg 05/30/25 11:40 05/30/25 12:13 Ondansetron Hcl 4 Mg/2 Ml Vial IVPUSH 05/30/25 11:41 4 mg ONCE ONE Administration Medical Decision Making Medical Decision Making [facility] Narrative: 55 yo male with PMH of diabetes, HTN, depression, anxiety, ESME here with c/o dull headache and nausea he has no neuro deficits, NIH is 0 he will need repeat BP checks, IV labetalol, crews labs, CT scan for ICH. He has no meningeal signs. He has no chest pain to suggest ACS. Differential Diagnosis Differential Diagnoses: The differential diagnosis associated with the presentation includes HTN crisis, ICH, renal failure, noncompliance Admission/Observation Consideration of admission/observation: Escalation of care including admission/observation considered labs at baseline responded to one very small dose of labetalol feels much better at this time no signs of end organ damage and symptom free will start on increased enalapril Lab Data [facility] Lab Attestation statement: I reviewed the patient's lab results. 05/30/25 11:35 05/30/25 11:35 Labs: Lab Results 05/30/25 Range/Units 11:35 WBC 8.1 (4.8-10.8) X10*3/uL RBC 5.43 (4.60-5.80) X10*6/uL Hgb 16.0 (14.0-18.0) g/dl Hct 47.1 (42.0-52.0) % MCV 86.7 (80.0-98.0) fL MCH 29.5 (27.0-33.0) pg MCHC 34.0 (31.0-36.0) g/dl RDW 12.5 (11.0-16.0) % Plt Count 152 L (160-400) X10*3/uL MPV 11.6 (9.4-12.4) fL Immature Gran % (Auto) 0.4 (0.0-0.4) % Neut % (Auto) 63.3 (45-73) % Lymph % (Auto) 22.7 (20-40) % [place] % (Auto) 10.9 (2-11) % Eos % (Auto) 2.3 (0-4) % Baso % (Auto) 0.4 (0-2) % Lymph # (Auto) 1.8 (1.2-4.9) X10*3/uL [place] # (Auto) 0.9 (0.1-1.2) X10*3/uL Eos # (Auto) 0.2 (0.0-0.4) X10*3/uL Baso # (Auto) 0.0 (0.0-0.2) X10*3/uL Abs Immat Gran (auto) 0.03 (0.00-0.03) X10*3/uL Absolute Neuts (auto) 5.1 (2.0-8.3) x10*3/uL Absolute Nucleated RBC 0.000 (0.0-0.012) X10*3/uL Nucleated RBC % (auto) 0.0 (0.0-0.2) /100WBC Sodium 140 (135-145) mmol/L Potassium 4.2 (3.3-5.1) mmol/L Chloride 105 (96-108) mmol/L Carbon Dioxide 28 (22-29) mmol/L Anion Gap 11 L (12-20) BUN 28 H (9-16) mg/dL Creatinine 1.17 (0.5-1.4) mg/dL Estim Creat Clear Calc 82.0 Estimated GFR > 60 Random Glucose 174 H (60-115) mg/dL Calcium 9.1 (8.4-10.2) mg/dL Magnesium 2.0 (1.6-2.6) mg/dL Total Bilirubin 1.0 (0.0-1.0) mg/dL Direct Bilirubin 0.4 (0.0-0.5) mg/dL AST 20 (5-37) U/L ALT 20 (0-40) U/L Alkaline Phosphatase 116 (39-117) U/L Troponin I High Sens 12.1 (<3.5-35.0) ng/L Total Protein 7.1 (6.5-8.0) g/dL Albumin 4.3 (3.5-5.0) g/dL Independent Interpretation I performed an independent interpretation of an: EKG and CT Scan (no ICH) Interpretation: Rate: 63 Rhythm: NSR [place]: left Normal P waves. Normal JOSE. RBBB ST T wave : no TYSON, t wave inversions I and aVL, no TYSON qTC: 450 prior studies: no change from prior The study has been interpreted contemporaneously by me. Radiology Impression Discussion of test interpretation with radiology: I have reviewed the radiologist's reading. External Record Review External record reviewed: Outpatient record Prescription Management I considered prescription management with: Other Discharge Plan Discharge Clinical Impression: Hypertension, uncontrolled Patient Disposition: Home, Self-Care Instructions: Chronic Hypertension (ED) Additional Instructions: your labs and CT scan were reassuring your blood pressure responded to one dose of IV medications STOP YOUR ENALAPRIL 20MG DAILY AND START 40MG OF ENALAPRIL REPEAT YOUR BLOOD PRESSURE WITH YOUR DOCTOR NEXT WEEK, RETURN FOR ANY WORSENING SYMPTOMS OR CONCERNS. Prescriptions: New enalapril maleate 20 mg tablet 40 mg PO DAILY Qty: 30 0RF No Action methocarbamol 750 mg tablet 750 mg PO TID 30 Days Qty: 90 4RF docusate sodium [Colace] 100 mg capsule 100 mg PO BID Qty: 60 1RF lidocaine 5 % adhesive patch,medicated 1 patch topical DAILY Qty: 15 0RF Rx Instructions: leave on most painful area for up to 12 hrs (DME) lancets [Easy Touch Twist Lancets] 33 gauge misc See Rx Instructions .ROUTE BID Qty: 100 Rx Instructions: As directed aripiprazole 10 mg tablet 10 mg PO QAM albuterol sulfate [Ventolin HFA] 90 mcg/actuation HFA aerosol inhaler 2 puff inhalation Q4-6H PRN (Reason: Bronchospasm) amlodipine 10 mg tablet 10 mg PO DAILY (DME) FreeStyle Lite Strips Strip See Rx Instructions .ROUTE BID Qty: 10 Rx Instructions: As directed glipizide 10 mg tablet 10 mg PO enalapril maleate 20 mg tablet 20 mg PO QAM atorvastatin 80 mg tablet 80 mg PO DAILY carvedilol 3.125 mg tablet 3.125 mg PO BID aspirin 81 mg tablet,delayed release (DR/EC) 81 mg PO DAILY tramadol 50 mg tablet 50 mg PO BID PRN (Reason: pain (scale score 7-10)) Qty: 30 0RF dorzolamide-timolol 22.3-6.8 mg/mL drops 1 drp ophthalmic (eye) BID vitamin B complex-folic acid [B Complex 1 (with folic acid)] 0.4 mg tablet 1 tab PO DAILY trazodone 100 mg tablet 100 mg PO BEDTIME sildenafil [Viagra] 100 mg tablet 100 mg PO DAILY PRN (Reason: Erectile Dysfunction) naloxone 4 mg/actuation spray,non-aerosol intranasal bupropion HCl 300 mg tablet extended release 24 hr 300 mg PO QAM Linzess 145 mcg capsule 145 mcg PO DAILY Qty: 30 4RF Print Language: Bermudian
--- OUTSIDE RECORDS SUMMARY | 2025-05-30 11:25 | XMS_ITS | Encounter Summary ---
Author Organization [employer] Address [address] [facility] [address] [place] [address] Care Team Providers Care Planishing Press Operator Name Role Phone Oneida Griffin Primary Care Provider [phone] Julio Rahman Unavailable Unavailable Savanna Bhatt NP Unavailable Reason for Visit * Reason Onset Date Comments PT1 10/03/2023 Encounter Details Date Type Department Care Team ([facility] st Contact Info) Description 10/03/2023 Telephone [facility] MEDICINE [address] [place], [place] [phone] Oneida Griffin ANP [address] [place] [address] PT1 Social History Tobacco Use Types Packs/Day [...] Time: 2:30 Visits: 4 times monthly Address: [address] [place] [address] Facility: [facility] Wheel Chair: no Processing Assistant Needed: no documented in this encounter Plan of Treatment Upcoming Encounters Date Type Department Care Team (Late st Contact Info) Description 06/04/2025 2:30 PM EDT Clinical Support [facility] MED[facility]INE [address] [place] [phone] 06/05/2025 1:00 PM EDT Office Visit [facility] ADULT DENTAL [address] [place] [phone] 07/31/2025 2:30 PM EDT Office Visit [facility] MED[facility]INE [address] [place] [phone] Oneida Griffin ANP [address] [place] [phone] 08/01/2025 10:30 AM EDT Clinical Support [facility] [address] [place] [phone] Flavia Gunter RN [address] [place] [phone] documented as of this encounter Goals Goal [...] documented as of this encounter Care Teams Planishing Press Operator Relationship Specialty Start Date End Date Oneida Griffin ANP [address] [place] [address] PCP - General Family Medicine 09/14/20 Julio Rahman FNP [address] [place] [address] Nurse Practitioner Family Medicine 08/21/23 08/20/24 Savanna Bhatt NP [address] [place] [address] Drive [address] [place] [address] Urology 08/21/24 Paco Trejo Proposal Writer 01/15/25 documented as of this encounter
--- OUTSIDE RECORDS SUMMARY | 2025-05-30 11:25 | XMS_ITS | Encounter Summary ---
Author Organization [employer] Address [address] [place] [address] 7t [place] [address] Care Team Providers Care Film Processing Utility Worker Name Role Phone Oneida Griffin Primary Care Provider [phone] Julio Rahman Unavailable Unavailable Savanna Bhatt NP Unavailable Reason for Visit * Reason Onset Date Comments Med Refill 12/28/2022 Encounter Details Date Type Department Care Team (Late st Contact Info) Description 12/28/[address] [facility] MEDICINE [address] [place], [place] [phone] Oneida Griffin ANP [address] [place] [address] Med Refill Social History Tobacco Use Types [...] (Lidoderm) 5 % patch Please sent to [facility] - [place], [place] - [address] [place] [address] documented in this encounter Plan of Treatment Upcoming Encounters Date Type Department Care Team (Late st Contact Info) Description 06/04/2025 2:30 PM EDT Clinical Support [address] [address] 06/05/2025 1:00 PM EDT Office Visit [facility] ADULT DENTAL [address] [place] [phone] 07/31/2025 2:30 PM EDT Office Visit [facility] MEDICINE [address] [place] [phone] Oneida Griffin ANP [address] [place] [address] 08/01/2025 10:30 AM EDT Clinical Support [facility] MEDICINE [address] [place] [address] Flavia Gunter RN [address] [place] [address] documented as of this encounter Visit Diagnoses Diagnosis Abscess of left leg Abscess of chin Cellulitis and abscess of face documented in this encounter Additional Health Concerns Assessment Noted Time PHQ-9 Depression Total Score: 8 12/20/19 23 9:49 AM EDT documented as of this encounter Care Teams Film Processing Utility Worker Relationship Specialty Start Date End Date Oneida Griffin ANP [address] [place] [address] PCP - General Family Medicine 09/14/20 Julio Rahman FNP [address] [place] [address] Nurse Practitioner Family Medicine 08/21/23 08/20/24 Savanna Bhatt NP [address] [place] [address] Drive [address] [place] [address] Urology 08/21/24 Paco Trejo Student Services Rep 01/15/25 documented as of this encounter
--- OUTSIDE RECORDS SUMMARY | 2025-05-30 11:25 | XMS_ITS | Encounter Summary ---
Author Organization [employer] Address [address] [facility] 7t [place] [address] Care Team Providers Care Load Out Person Name Role Phone Oneida Griffin Primary Care Provider [phone] Julio Rahman Unavailable Unavailable Savanna Bhatt CHARTER DRIVER Unavailable Reason for Visit * Reason Onset Date Comments triage 01/10/2023 Encounter Details Date Type Department Care Team ([facility] st Contact Info) Description 01/10/2023 Telephone [facility] MEDICINE [address] [place], [place] [phone] Oneida Griffin ANP [address] [place] [address] triage Social History Tobacco Use Types Packs/Day [...] or tomorrow from 830am-730pm. Pt. States only sigifredo is his Aunt and his uncle is [...] Pain Medicines * Telephone Encounter - Jason Romero - 01/10/2023 11:20 AM EDT Symptom: Skin Infection - Caller Reports Outcome: Schedule a same-day appointment or talk to a nurse or provider today Reason: No high acuity concerns reported by caller The caller accepted this outcome documented in this encounter Plan of Treatment Upcoming Encounters Date Type Department Care Team (Late st Contact Info) Description 06/04/2025 2:30 PM EDT Clinical Support [facility] MEDICINE [address] [place] [phone] 06/05/2025 1:00 PM EDT Office Visit [facility] ADULT DENTAL [address] [place] [phone] 07/31/2025 2:30 PM EDT Office Visit [address] [address] Oneida Griffin ANP [address] [place] [address] 08/01/2025 10:30 AM EDT Clinical Support [address] [address] Flavia Gunter RN [address] [place] [address] documented as of this encounter Visit Diagnoses Diagnosis Abscess of left leg documented in this encounter Additional Health Concerns Assessment Noted Time PHQ-9 Depression Total Score: 8 12/20/19 23 9:49 AM EDT documented as of this encounter Care Teams Load Out Person Relationship Specialty Start Date End Date Oneida Griffin ANP [address] [place] [phone] PCP - General Family Medicine 09/14/20 Julio Rahman FNP [address] [place] [phone] Nurse Practitioner Family Medicine 08/21/23 08/20/24 Savanna Bhatt NP [address] [place] [address] Drive [address] [place] [phone] Urology 08/21/24 Paco Trejo Financial Analysis Consultant 01/15/25 documented as of this encounter
--- OUTSIDE RECORDS SUMMARY | 2025-05-30 11:25 | XMS_ITS | Encounter Summary ---
Author Organization [employer] Address [address] [place] [address] 7t [place] [address] Care Team Providers Care Government Contracts Manager Name Role Phone Oneida Griffin Primary Care Provider [phone] Julio Rahman Unavailable Unavailable Savanna Bhatt MARKETING PROJECT LEAD Unavailable Reason for Visit * Reason Comments Med Refill Encounter Details Date Type Department Care Team (Late st Contact Info) Description 02/07/2023 Refill [facility] MEDICINE [address] [place] [phone] Oneida Griffin ANP [address] [place] [address] Social History Tobacco Use Types Packs/Day Years [...] Department Care Team (Late Contact Info) Description 06/04/2025 2:30 PM EDT Clinical Support [address] [address] 06/05/2025 1:00 PM EDT Office Visit [facility] ADULT DENTAL [address] [place] [phone] 07/31/2025 2:30 PM EDT Office Visit [address] [phone] Oneida Griffin ANP [address] [place] [address] 08/01/2025 10:30 AM EDT Clinical Support [address] [address] Flavia Gunter RN [address] [place] [address] documented as of this encounter Visit Diagnoses Not on filedocumented in this encounter Additional Health Concerns Assessment Noted Time PHQ-9 Depression Total Score: 8 12/20/19 9:49 AM EDT documented as of this encounter Care Teams Government Contracts Manager Relationship Specialty Start Date End Date Oneida Griffin ANP [address] [place] [phone] PCP - General Family Medicine 09/14/20 Julio Rahman FNP [address] [place] [phone] Nurse Practitioner Family Medicine 08/21/23 08/20/[address] [place] [address] Urology 08/21/24 Paco Trejo Geospatial Imagery Intelligence Analyst 01/15/25 documented as of this encounter
--- OUTSIDE RECORDS SUMMARY | 2025-05-30 11:25 | XMS_ITS | Clinical Summary ---
Author Organization [employer] Address [address] [facility] [address] [place] [address] Care Team Providers Care Supervisor Silvering Department Name Role Phone Elias Oneida MEDRANO Primary Care Provider [phone] Savanna Bhatt PLATFORM WORKER Unavailable Allergies Active Allergy Reactions Criticality Noted [...] tablet 2 023 Active Blood Pressure Monitor misc USE TO CHECK BLOOD PRESSURE DAILY DIRECTED [...] MOUTH TWICE DAILY 180 tablet 023 Active glucose blood (FREESTYLE LITE) test strip TEST BLOOD SUGAR 3 TIMES A DAY 100 each 11 024 Active senna-docusate (Sowmya-Colace) 8.6-50 MG tabletIndications [...] bedtime (sleep). 90 tablet 1 024 Active ARIPiprazole (Abilify) 10 MG tablet [...] DOSES / DAY 592 mL 024 Active Vitamins-Lipotrop ics (B Complex Formula 1, Lipotrop,) tablet TAKE 1 TABLET BY MOUTH EVERY DAY 90 tablet 3 024 Active enalapril (Vasotec) 20 MG tabletIndications [...] FOR CONSTIPATION 510 g 2 024 Active Oyster Shell Calcium + D3 500-10 MG-MCG tablet TAKE 1 TABLET BY MOUTH EVERY DAY 90 tablet 3 024 Active gabapentin (Neurontin) 600 MG tabletIndications :Whole body pain Take 1 tablet (600 mg) by mouth 3 times daily. 21 tablet 025 Active naloxone (Narcan) 4 mg/0.1 mL nasal spray Administer 1 spray (4 mg) into affected nostril(s) if needed for opioid reversal. May repeat every 2-3 minutes if needed, alternating nostrils, until medical assistance becomes available. 2 each 2 025 2025 Active Viagra 100 MG tabletIndications :Erectile dysfunction, unspecified erectile dysfunction type TAKE 1 TABLET 1 HOUR BEFORE SEXUAL RELATIONS ONCE DAILY NEEDED. 30 tablet 1 Active docusate sodium (Colace) 100 MG capsule Take 1 capsule by mouth 2 times daily. 025 Active Linzess 145 MCG capsule Take 1 capsule by mouth Once per day. 025 Active methocarbamol (Robaxin) 750 MG tablet Take 1 tablet by mouth every 6 (six) hours during the day. Active timolol (Timoptic) 0.5 % ophthalmic solution Administer 1 drop into both eyes 2 times daily. 024 Active glipiZIDE (Glucotrol) 10 MG tabletIndications :Type 2 diabetes mellitus with hyperlipidemia (CMS/HCC) ([facility]) TAKE 1 TABLET BY MOUTH TWICE DAILY BEFORE BREAKFAST & BEFORE SUPPER 180 tablet 3 Active TRUEplus Lancets 33G misc USE DIRECTED TO TEST BLOOD SUGAR THREE TIMES DAILY 100 each 3 025 Active carvedilol (Coreg) 3.125 MG tabletIndications :Essential hypertension TAKE 1 TABLET BY MOUTH TWICE DAILY 180 tablet 3 025 Active atorvastatin (Lipitor) 80 MG tabletIndications :Type 2 diabetes mellitus with hyperlipidemia (CMS/HCC) ([facility]) TAKE 1 TABLET BY MOUTH EVERY DAY 90 tablet 3 025 Active Aspirin Low Dose 81 MG EC tabletIndications :Type 2 diabetes mellitus with hyperlipidemia (CMS/HCC) ([facility]) TAKE 1 TABLET BY MOUTH EVERY DAY 90 tablet 3 Active traMADol (Ultram) 50 MG tabletIndications :Ulcer of right lower extremity, limited to breakdown of skin (CMS/HCC) Take 1 tablet (50 mg) by mouth every 12 (twelve) hours if needed for severe pain. 56 tablet 025 Active amLODIPine (Norvasc) 10 MG tabletIndications :Essential hypertension Take 1 tablet (10 mg) by mouth Once per day. Every day 90 tablet 3 025 2025 Active amLODIPine (Norvasc) 10 MG tabletIndications :Essential hypertension Take 1 tablet (10 mg) by mouth Once per day. Every day 90 tablet 3 024 2024 Discontinued(R eorder (will not trigger notification to Pharmacy)) atorvastatin (Lipitor) 80 MG tabletIndications :Type 2 diabetes mellitus with hyperlipidemia (CMS/HCC) ([facility]) TAKE 1 TABLET BY MOUTH EVERY DAY 90 tablet 3 024 2024 Discontinued carvedilol (Coreg) 3.125 MG tabletIndications :Essential hypertension TAKE 1 Tablet BY MOUTH TWICE DAILY 180 tablet 3 024 2024 Discontinued aspirin 81 MG EC tabletIndications :Type 2 diabetes mellitus with hyperlipidemia (CMS/HCC) ([facility]) TAKE 1 TABLET BY MOUTH EVERY DAY 90 tablet 3 024 2024 Discontinued traMADol (Ultram) 50 MG tabletIndications :Ulcer of right lower extremity, limited to breakdown of skin (CMS/HCC) Take 1 tablet (50 mg) by mouth every 12 (twelve) hours if needed for severe pain. 56 tablet 025 2024 Discontinued(R eorder (will not trigger notification to Pharmacy)) Active Problems Problem Noted Date Diagnosed Date Severe episode of recurrent major depressive disorder, with psychotic features 01/16/2025 Bilateral leg edema 01/16/2025 Ulcer of right lower extremi ty, limited to breakdown of skin 01/05/2025 Assessment & Plan (01/06/2025 4:53 PM EDT): Has mild cellulitis, start doxycycline (he is allergic to penicillin) and follow-up with wound clinic in 2 days. Keep the ulcer clean and dry, cover with topical antibiotics and gauze dressing Td is up-to-date Discussed with him the portance of tight control of diabetes, follow-up with PCP Assessment & Plan (01/06/2025 3:52 PM EDT): Currently on doxycycline for cellulitis surrounding venous ulcer Continue doxycycline through completion of course Tramadol 50mg BID to TID for 5 days Continue to call [facility] to book appointment jeremi Ankle pain, left 01/03/2025 Arthritis of left knee 01/03/2025 Back pain 01/03/2025 Constipation 01/03/2025 Diabetic arthropathy 01/03/2025 Hydronephrosis 01/03/2025 Left knee pain 01/03/2025 Left sided abdominal pain 01/03/2025 Overview (01/03/2025): Left upper quadrant Cigarette nicotine dependence without complicati on 01/03/2025 Diastasis recti 11/28/2024 Carpal tunnel syndrome, bilateral 07/16/2024 Overview (07/16/2024): NCS 05/14/24 Cubital tunnel syndrome, bilateral 07/16/2024 Overview (07/16/2024): NCS 05/14/24 Neuropathy of left brachial plexus 07/16/2024 Overview (07/16/2024): NCS 05/14/24 Calculus of gallbladder with out cholecystitis without obstruction 12/13/2023 Whole body pain 06/12/2023 Type 2 diabetes mellitus with hyperlipidemia (CM S/HCC) 03/03/2023 Obesity (BMI 30-39.9) 11/06/2018 Dizziness 06/01/2018 Chronic [...] retiring, he will be transferred to 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 Any issues or concerns call [facility]. All his questions were answered. I have [...] counseling. He will F/U with PCP and Top Hat Body Maker as usual. On 08/21/2023 provider informed the [...] will send him the informational flyer for [facility] Acupuncture clinic. Will continue current medications: Aripiprazole [...] syndrome 10/10/2017 Anxiety 02/13/2017 Essential hypertension 02/13/2017 Assessment & Plan (01/06/2025 4:54 PM EDT): Uncontrolled today, he forgot to take his medications this morning. He has been mostly in control over the past year. Advised importance of taking all his medications and follow-up with PCP Continue amlodipine and enalapril Pure hypercholesterolemia 02/13/2017 Type 2 diabetes mellitus 02/13/2017 Visual impairment 02/13/2017 History of corneal transplant 01/05/2017 Central corneal opacity 08/29/2016 Posterior synechiae of right eye 08/29/2016 Corneal ulcer 08/11/2016 Corneal ulcer of right eye with hypopyon 016 Obstructive sleep apnea 05/08/2015 Mixed hyperlipidemia 03/09/2015 Type 2 diabetes mellitus with diabetic nephropat hy 12/08/2014 Uncontrolled diabetes mellitus with hyperglycemi a 12/02/2014 Hypertension 12/02/2014 Resolved Problems Problem Noted Date Diagnosed Date Resolved Date Hypokalemia 01/03/2025 01/16/2025 Hypomagnesemia 01/03/2025 01/16/2025 Hypertensive urgency 06/12/2023 025 Anal abscess 06/24/2022 01/16/2025 Carbuncle of skin and/or subcutaneous tissue 01/16/2025 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 08/11/2016 01/16/2025 Kidney stones 12/02/2014 05/13/2024 Overview (01/12/2024): Hx of hydronephrosis, hx of lithotripsy x 2 Encounters Date Type Department Care Team Description 05/30/2025 8:30 AM EDT Office Visit [facility] ADULT DENTAL [address] [place] [address] Mathew Mena 05/23/2025 10:30 AM EDT Clinical Support [facility] MEDICINE [address] [place] [address] Flavia Gunter RN Back pain, unspecified back location, unspecified back pain laterality, unspecified chronicity 05/23/2025 Refill [facility] CHC MED & PEDS [address] [place] [address] Flavia Gunter RN 05/23/2025 Travel 05/21/2025 2:30 PM EDT Office Visit [facility] ADULT DENTAL [address] [place] [address] Mathew Mena Encounter for dental examination (Primary Dx) 05/19/2025 Refill [facility] MED & PEDS [address] [place] [address] Flavia Gunter, RN Ulcer of right lower extremity, limited to breakdown of skin ([facility]/HCC) 05/19/2025 Telephone [facility] MEDICINE [address] [place] [phone] Oneida Griffin ANP Med Refill 05/05/[address] [address] Oneida Griffin ANP Essential hypertension; Type 2 diabetes mellitus with hyperlipidemia ([facility]/HCC) ([facility]) 05/01/2025 1:00 PM EDT Office Visit [address] [address] Oneida Griffin ANP Type 2 diabetes mellitus with diabetic nephropathy, without long-term current use of insulin ([facility]) (Primary Dx); Uncontrolled type 2 diabetes mellitus with hyperglycemia ([facility]); Essential hypertension; Cigarette nicotine dependence without complication 05/01/2025 Travel 04/30/[address] [address] Oneida Griffin ANP chart prep 03/18/2025 Travel 03/18/2025 Refill [facility] MED & PEDS [address] [place] [address] Flavia Gunter, SANTI Ulcer of right lower extremity, limited to breakdown of skin ([facility]) 03/18/[address] [address] Oneida Griffin ANP Appointment Request 03/07/2025 1:40 PM EDT Office Visit [facility] WALK-IN CENTER [address] [place] [phone] Savannah Khan NP Ulcer of extremity due to chronic venous insufficiency ([facility]) (Primary Dx); Elevated blood pressure reading in office with diagnosis of hypertension 03/07/2025 Refill [facility] WALK-IN CENTER [address] [place] [phone] Oneida Griffin ANP Ulcer of right lower extremity, limited to breakdown of skin ([facility]/HCC) 03/07/2025 Travel 03/06/2025 Refill [facility] MEDICINE [address] [place] [phone] Oneida Griffin ANP Erectile dysfunction, unspecified erectile dysfunction type from Last 3 Months Immunizations Immunization Administration Dates Next Due Pneumococcal Conjugate PCV 13 01/08/2015 Pneumococcal Polysaccharide PPSV23 01/08/2015 Tdap 12/30/2024,01/08/2015 Social History Tobacco Use Types Packs/Day Years Used Date Smoking Tobacco: Every Day Cigarettes Passive Smoke Exposure: Current Smokeless Tobacco: Never Tobacco Cessation:Ready to Q uit: No; Counseling Given: Yes Alcohol Use Standard Drinks/Week Comments Never 0 [...] Pressure 170/94 05/30/2025 8:52 AM EDT Pulse 72 05/21/2025 2:23 PM EDT Temperature 37.2 C (98.9 F) 05/01/2025 1:09 PM EDT Respiratory Rate 18 05/01/2025 1:09 PM EDT Oxygen Saturation 98% 05/01/2025 1:09 PM EDT Inhaled Oxygen Concentration - - Weight 97.4 kg (214 lb 12.8 oz) 05/01/2025 1:09 PM EDT Height 172.7 cm (5' 8 ) 01/16/2025 1:00 PM EDT Body Mass Index 32.66 01/16/2025 1:00 PM EDT Plan of Treatment Upcoming Encounters Date Type Department Care Team (Late st Contact Info) Description 06/04/2025 2:30 PM EDT Clinical Support [address] [phone] 06/05/2025 1:00 PM EDT Office Visit [facility] ADULT DENTAL [address] [place] [phone] 07/31/2025 2:30 PM EDT Office Visit [address] [address] Oneida Griffin ANP [address] [place] [address] 08/01/2025 10:30 AM EDT Clinical Support [address] [address] Flavia Gunter, SANTI [address] [place] [address] Health Maintenance Due Date Last Done Comments CT Colonography 1970 FIT DNA/Cologuard 1970 FIT 1970 FOBT 1970 Sigmoidoscopy 1970 Diabetes: Foot Exam 1980 Hepatitis B Vaccines (1 of 3 - 19+ 3-dose series) 1989 Pneumococcal Vaccine: 50+ Years (3 of 3 - PCV20 or PCV21) 2020 01/08/2015, 01/08/2015 Zoster Vaccines (1 of 2) 2020 Eye Exam 10/24/2024 05/22/2016 Influenza Vaccine (#1) 2025 Diabetes: Hemoglobin A1C 08/01/2025 025, 01/16/2025, 10/18/2024, Additional history exists Lipid Panel 08/21/2025 08/21/2024, 11/02, 02/02/2021 COVID-19 Vaccine ( season) 2025 Postponed from 06/02/2024 (Patient Refused) Depression Monitoring 11/01/2025 05/01/2025, 025 Dental Oral Exam 11/22/2025 05/21/2025, 02/13/2018 Dental Prophylaxis 11/22/2025 05/21/2025 Alcohol/Substance Use Screening 01/16/2026 01/16/2025 Disability Screening 01/16/2026 01/16/2025 SDOH Screening 05/01/2026 05/01/2025 Dental X-Ray: Bitewings 05/22/2026 05/21/2025, 02/13 Tobacco Screening 05/30/2026 05/30/2025 Colonoscopy 01/02/2027 01/02/2025 Colorectal Cancer Screening 01/02/2027 Dental X-Ray: Full Mouth 05/22/2028 05/21/2025, 01/30 DTaP/Tdap/Td Vaccines (3 - Td or Tdap) 12/30/2034 12/30/2024, 01/08/2015 RSV Patients and Patients Aged 60 years or older (1 - 1-dose 75+ series) 2045 HIV Screening Completed 08/21/2024, 11/14/2022 Hepatitis C Screening Completed 08/21/2024, 023 HIB Vaccines Aged Out No longer eligi ble based on patient's age to complete this topic HPV Vaccines Aged Out No longer eligi ble based on patient's age to complete this topic Hepatitis A Vaccines Aged Out No long er eligible based on patient's age to complete this topic IPV Vaccines Aged Out No longer eligi ble based on patient's age to complete this topic Meningococcal B Vaccine Aged Out No l onger eligible based on patient's age to complete [...] 7.9( 1:39 PM EDT) No Monica Orourke Procedures Procedure Name Priority Date/Time Associated Diagnosis Comments OFFICE VISIT FOR OBSERVATION (DURING REGULARLY SCHEDULED HOURS) - NO OTHER SERVICES PERFORMED Routine 05/30/2025 8:30 AM EDT POCT GULSHAN-14 URINE DRUG SCREEN Routine 05/23/2025 10:19 AM EDT Back pain, unspecified back location, unspecified back pain laterality, unspecified chronicity PERIODIC ORAL EVALUATION - ESTABLISHED PATIENT Routine 05/21/2025 2:30 PM EDT CASE PRESENTATION, DETAILED AND EXTENSIVE TREATMENT PLANNING Routine 05/21/2025 2:30 PM EDT PROPHYLAXIS - ADULT Routine 05/21/2025 2 :30 PM EDT INTRAORAL - COMPLETE SERIES OF RADIOGRAPHIC IMAGES Routine 05/21/2025 2:30 PM EDT POCT HEMOGLOBIN Routine 05/01/2025 1:39 PM EDT Type 2 diabetes mellitus with diabetic nephropathy, without long-term current use of insulin (CMS/HCC) POCT GLYCOSYLATED HEMOGLOBIN (HGB A1C) Routine 05/01/2025 1:39 PM EDT Type 2 diabetes mellitus with diabetic nephropathy, without long-term current use of insulin (CMS/HCC) HM COLONOSCOPY Routine 01/02/2025 HEPATITIS C AB W/REFL TO HCV RNA, QN, PCR Routine 08/21/2024 3:49 PM EST Routine screening for STI (sexually transmitted infection) HIV 1/2 ANTIGEN/ANTIBODY, FOURTH GENERATION W/RFL Routine 08/21/2024 3:49 PM EST Routine screening for STI (sexually transmitted infection) LIPID PANEL, STANDARD Routine 08/21/2024 3:49 PM EST Type 2 diabetes mellitus with hyperlipidemia (CMS/HCC) (CMS/HCC) from Last 3 Months or Most Recently Relevant to Health Maintenance Results * POCT GULSHAN-14 Urine Drug Screen (05/23/2025 10:19 AM EDT) THC Negative Negative Cocaine Screen, Urine Negative Negative Opiate Screen, Urine Negative Negative Methamphetamine Screen Urine Negative Negative Amphetamine Screen, Urine Negative Negative Benzodiazepines Screen, Urine Negative Negative Barbiturate Screen, Urine Negative Negative Methadone Screen, Urine Negative Negative Buprenophine Screen, Urine Negative Negative TCA, Urine Negative Negative MDMA Urine Negative Negative ng/mL Oxycodone Screen, Urine Negative Negative Phencyclidine (PCP), Urine Negative Negative Propoxyphene, Urine Negative Negative Fentanyl, Urine Negative Negative Urine Urine specimen obtained by clean catch procedure / Unknown 05/23/2025 10:19 AM EDT Narrative Flavia Gunter RN - 05/23/2025 10:19 AM EDT .UTOX cup Lot#[id number] Exp. 07/08/26 Internal Pass Control us Oneida MEDRANO POINT OF CARE TEST ENTER/EDIT OR DERABLES Final Result * (ABNORMAL) POCT glycosylated hemoglobin (Hgb A1c) (05/01/2025 1:39 PM EDT) Pathologist [facility] Hemoglobin A1C 7.9(A) 4.0 - 5.7 % QC Media Lot # [id number] Lot# Expiration Date [id number] Blood Capillary blood specimen / Unknown 05/01/2025 1:39 PM EDT us Oneida MEDRANO POINT OF CARE TEST ENTER/EDIT OR DERABLES Final Result * (ABNORMAL) POCT hemoglobin docked device (05/01/2025 1:39 PM EDT) Pathologist [facility] Hemoglobin 170(A) 13.0 - 17.0 QC Media Lot # [id number] Lot# Expiration Date [id number] Blood 05/01/2025 1:39 PM EDT Oneida Griffin ANP POINT OF CARE TEST ENTER/EDIT OR DERABLES Final Result * (ABNORMAL) Hm Colonoscopy (01/02/2025) [facility] Colonoscopy Abnormal(A ) Normal Narrative Alla Tay RN - 01/02/2025 Did complete colonoscopy 01/02/25 and plan is to repeat in 1 or 2 years or earlier if clinically indicated. Had 5 colon polyps and internal hemorrhoids. [facility] Provider HEALTH MAINTENANCE Final Result * Hepatitis C Antibody with Reflex to HCV, RNA, Quantitative, Real-Time PCR (08/21/2024 3:49 PM EST) [facility] Hepatitis C Antibody Nonreactive Nonreactive [facility] Comment:Antibodies to HCV no t detected; does not exclude early acuteHCV infection. Blood Venous blood specimen / Unknown 08/21/2024 3:49 PM EST 08/21/2024 5:42 PM EST Oneida Griffin [facility] LAB BLOOD ORDERABLES Final Resul t [facility] [address] [place] [phone] * HIV-1/2 Antigen and Antibodies, Fourth Generation, with Reflexes (08/21/2024 3:49 PM EST) [facility] HIV AB/AG Nonreactive Nonreactive [facility] Comment:HIV-1 p24 Ag and/or HIV-1/HIV-2 Ab not detected.A test result that is nonreactive does not exclude thepossibility of exposure to or infection with HIV-1 and/orHIV-2. Nonreactive results in this assay for individualswith prior exposure to HIV-1 and/or HIV-2 may be due toantigen and antibody levels that are below the limit ofdetection of this assay.The [employer] HIV Ag/Ab Combo assay result andsupplemental assay results should be interpreted inconjunction with the patient's clinical presentation,history and other laboratory results. If the results areinconsistent with clinical evidence, additional testing issuggested to confirm the result. Blood Venous blood specimen / Unknown 08/21/2024 3:49 PM EST 08/21/2024 5:42 PM EST Oneida Griffin ANP LAB BLOOD ORDERABLES Final Resul t Performing Organization Address [facility]/ZIP Co de Phone Number [facility] [address] [place] [phone] * (ABNORMAL) Lipid Panel, Standard (08/21/2024 3:49 PM EST) Triglycerides 162(H) <150 mg/dL [facility] Comment:Desirable Triglyceri de: less than 150 mg/dLBorderline High Triglyceride 150-199 mg/dLHigh Triglyceride: 200-499 mg/dLVery High Triglyceride: greater than or equal to 5OO mg/dL Cholesterol 191 <200 mg/dL [facility] Comment:Desirable Cholestero l: less than 200 mg/dLBorderline High Cholesterol: 200-239 mg/dLHigh Cholesterol: greater than 239 mg/dL LDL Cholesterol Calculated 117(H) <100 mg/dL [facility] Comment:Desirable LDL: less than 100 mg/dLNear Optimal/Above Optimal LDL: 110- 129 mg/dLBorderline High LDL: 130-159 mg/dLHigh LDL: 160-189 mg/dLVery High LDL: greater than or equal to 190 mg/dL HDL Cholesterol 42 >40 mg/dL [facility] Comment:Desirable HDL: great er than 40 mg/dL Note: This HDL assay may give artificially low results in patients with liver disease. Blood Venous blood specimen / Unknown 08/21/2024 3:49 PM EST 08/21/2024 5:42 PM EST Oneida Griffin ANP LAB BLOOD ORDERABLES Final Resul t [facility] [address] [place] [phone] [phone] from Last 3 Months or Most Recently Relevant to Health Maintenance [place] Care Teams Supervisor Silvering Department Relationship Specialty Start Date End Date Oneida Griffin ANP [address] [place] [address] PCP - General Family Medicine 09/14/20 Savanna Bhatt NP [address] [place] [address] Urology 08/21/24 Paco Trejo Tipple Supervisor 01/15/25
--- OUTSIDE RECORDS SUMMARY | 2025-05-30 11:25 | XMS_ITS | Encounter Summary ---
Author Organization [employer] Address [address] [place] [address] 7[address] [place] [address] Care Team Providers Care Evaluation Engineer Name Role Phone Oneida Griffin Primary Care Provider [phone] Julio Rahman Unavailable Unavailable Savanna Bhatt NP Unavailable Reason for Visit * Reason Onset Date Comments Med Refill 01/24/2023 Encounter Details Date Type Department Care Team ([facility] st Contact Info) Description 01/24/2023 Telephone [facility] MEDICINE [address] [place], [place] [phone] Oneida Griffin ANP [address] [place] [address] Med Refill Social History Tobacco Use Types [...] to pcp today * Telephone Encounter - Raya Robles - 01/24/2023 11:27 AM EDT Tc from pt requesting med refill on sildenafil (Viagra) 100 MG tablet Please sent to [facility] - [place], [place] - [address] [place] [address] documented in this encounter Plan of Treatment Upcoming Encounters Date Type Department Care Team (Late st Contact Info) Description 06/04/2025 2:30 PM EDT Clinical Support [facility] MEDICINE [address] [place] [phone] 06/05/2025 1:00 PM EDT Office Visit [facility] ADULT DENTAL [address] [place] [phone] 07/31/2025 2:30 PM EDT Office Visit [facility] MEDICINE [address] [place] [phone] Oneida Griffin ANP [address] [place] [address] 08/01/2025 10:30 AM EDT Clinical Support [address] [address] Flavia Gunter, SANTI [address] [place] [address] documented as of this encounter Visit Diagnoses Not on filedocumented in this encounter Additional Health Concerns Assessment Noted Time PHQ-9 Depression Total Score: 8 12/20/19 23 9:49 AM EDT documented as of this encounter Care Teams Evaluation Engineer Relationship Specialty Start Date End Date Oneida Griffin ANP [address] [place] [phone] PCP - General Family Medicine 09/14/20 Julio Rahman FNP [address] [place] [phone] Nurse Practitioner Family Medicine 08/21/23 08/20/[address] [place] [address] Urology 08/21/24 Paco Trejo Drywall Stripper 01/15/25 documented as of this encounter
--- OUTSIDE RECORDS SUMMARY | 2025-05-30 11:25 | XMS_ITS | Encounter Summary ---
Author Organization [employer] Address [address] [facility] 7t [place] [address] Care Team Providers Care Steel Sampler Name Role Phone Oneida Griffin Primary Care Provider Savanna Bhatt PROGRAM ASSISTANT Unavailable Reason for Visit * Reason Comments Med Refill Encounter Details Date Type Department Care Team ([facility] st Contact Info) Description 09/30/2024 Refill [facility] MEDICINE [address] [place], [place] [phone] Oneida Griffin ANP [address] [place] [address] Constipation, unspecified constipation type Social History Tobacco [...] Description 06/04/2025 2:30 PM EDT Clinical Support [facility] [address] [place] [address] 06/05/2025 1:00 PM EDT Office Visit [facility] ADULT DENTAL [address] [place] [address] 07/31/2025 2:30 PM EDT Office Visit [address] [address] Oneida Griffin ANP [address] [place] [address] 08/01/2025 10:30 AM EDT Clinical Support [address] [address] Flavia Gunter, SANTI [address] [place] [address] documented as of this encounter Goals Goal Patient Goal Type Associated Problems Recent Progress Patient-Stated? Author Record your blood pressure once per day Blood Pressure Monica Morris Blood Pressure < 140/90 Blood Pressure 170/94(2024 8:52 AM EDT) No Monica Orourke Patient will adhere to medication regimen General No Monica Orourke Hemoglobin A1c < 7 Result Component 7.9( 5 1:39 PM EDT) No Monica Orourke documented as of this encounter Visit Diagnoses Diagnosis Constipation, unspecified constipation type documented in this encounter Additional Health Concerns Assessment Noted Time PHQ-9 Depression Total Score: 12 024 9:53 AM EDT documented as of this encounter Care Teams Steel Sampler Relationship Specialty Start Date End Date Oneida Griffin ANP [address] [place] [address] PCP - General Family Medicine 09/14/20 Savanna Bhatt NP [address] [place] [address] Urology 08/21/24 Paco Trejo Merchant Miller 01/15/25 documented as of this encounter
--- OUTSIDE RECORDS SUMMARY | 2025-05-30 11:25 | XMS_ITS | Clinical Summary ---
Author Organization [facility] Address [address] [place] [address] Care Team Providers Care Information Coder Name Role Phone Unavailable Primary Care Provider [...] 10 mg by mouth daily 01/19/20 [address] tablet 1 [...] recurrent major depressive disorder, with psychotic features (CMS & HHS-HCC) Take 1 Tablet by mouth daily for 90 days. 90 Tablet 05/08/20 25 025 Active buPROPion HCL (WELLBUTRIN XL) 300 mg 24 hr tabletIndicati ons:Severe episode of recurrent major depressive disorder, with psychotic features (CMS & HHS-HCC) Take 1 Tablet by mouth every morning for 90 days. 90 Tablet 05/08/20 25 11/05/2 025 Active FLUoxetine (PROZAC) 40 mg capsule Take 1 Capsule by mouth once daily for 90 days. 90 Capsule 05/08/20 25 025 Active hydrOXYzine HCL (ATARAX) 25 mg tabletIndicati ons:Anxiety Take 1 Tablet by mouth 3 (three) times daily as needed for anxiety or sleep for up to 120 days. 90 Tablet 3 05/08/20 25 025 Active hydrOXYzine HCL (ATARAX) 25 mg tabletIndicati ons:Anxiety Take 1 Tablet by mouth 3 (three) times daily as needed for anxiety or sleep for up to 120 days 90 Tablet 3 01/24/20 25 025 Discontin ued(Reord er (E-Cancel Not Sent)) ARIPiprazole (ABILIFY) 10 mg tabletIndicati ons:Severe episode of recurrent major depressive disorder, with psychotic features (CMS & HHS-HCC) Take 1 Tablet by mouth daily for 90 days. 90 Tablet 02/21/20 25 025 Discontin ued(Reord er (E-Cancel Not Sent)) buPROPion HCL (WELLBUTRIN XL) 300 mg 24 hr tabletIndicati ons:Severe episode of recurrent major depressive disorder, with psychotic features (CMS & HHS-HCC) Take 1 Tablet by mouth every morning for 90 days. 90 Tablet 02/21/20 25 025 Discontin ued(Reord er (E-Cancel Not Sent)) FLUoxetine (PROZAC) 40 mg capsule Take 1 Capsule by mouth once daily for 90 days. 90 Capsule 02/21/20 25 025 Discontin ued(Reord er (E-Cancel Not Sent)) Active Problems Problem Noted Date Diagnosed Date Calculus of gallbladder with out cholecystitis without obstruction 12/13/2023 Tobacco dependence 06/29/2023 Hypertensive urgency 06/12/2023 Whole body pain 06/12/2023 Anal abscess 06/24/2022 Carbuncle of skin and/or subcutaneous tissue 08/2021 Obesity (BMI 30-39.9) 11/06/2018 Chronic low back pain 04/11/2018 Pain in left arm 02/09/2018 Recurrent major depression (CMS-HCC V24) 018 Overview (05/09/2024): Last Assessment & Plan: Presented [...] retiring, he will be transferred to 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 Any issues or concerns call [facility]. All his questions were answered. I have wished him well. He agrees with the plan. Assessment & Plan (05/08/2025 1:39 PM EDT): Severe depression with psychotic features - Assessment: improving - Plan: - Continue current medications: Abilify 10 mg, - Continue Wellbutrin XL 300 mg, - Continue Hydroxyzine HCL, take 2 at HS for sleep - Continue Prozac to 40 mg daily - Request for therapy sent to [facility] ( pending ) Assessment & Plan (02/27/2025 7:41 PM EDT): Severe depression with psychotic features - Assessment: improving - Plan: - Continue current medications: Abilify 10 mg, - Continue Wellbutrin XL 300 mg, - Continue Hydroxyzine HCL, take 2 at HS for sleep - Continue Prozac to 40 mg daily - Request for therapy sent to [facility] ( pending ) Assessment & Plan (01/23/2025 1:37 PM EDT): Severe depression with psychotic features - Assessment: reports loneliness, guilt, isolation, lack of motivation, poor sleep and appetite - Plan: - Continue current medications: Abilify 10 mg, - Continue Wellbutrin XL 300 mg, - Continue Hydroxyzine HCL, take 2 at HS for sleep - increase Prozac to 40 mg daily - Request for therapy sent to [facility] ( pending ) Assessment & Plan (12/26/2024 2:00 PM EDT): Severe depression with psychotic features - Assessment: reports loneliness, guilt, isolation, lack of motivation. - Plan: - Continue current medications: Abilify 10 mg, - Continue Wellbutrin XL 300 mg, - Continue Hydroxyzine HCL - Start Prozac 20 mg daily - Request for therapy sent to [facility] Assessment & Plan (10/31/2024 4:31 PM EST): [...] strategies. - encouraged to reach out to fish house worker, patient agreed. Assessment & Plan (06/11/2024 1:40 PM EDT): Anxiety - Assessment: situational anxiety with worrying about moving to new apartment, does not have any support system in the area. - Plan: - Continue Hydroxyzine for anxiety and sleep. - Consider referral to therapy for additional support and coping strategies. - encouraged to reach out to fish house worker, patient agreed. Assessment & Plan (05/10/2024 [...] hx of lithotripsy x 2 Uncontrolled diabetes mellit us with hyperglycemia ([facility]) 12/02/2014 Encounters Date Type Department Care Team Description 05/08/2025 1:00 PM EDT Behavioral Health Visit [facility] [address] [place] [phone] Geraldine Garcia APRN from Last 3 Months Immunizations Immunization Administration Dates Next Due PNEUMOCOCCAL CONJUGATE PCV 13 01/08/2015 PNEUMOCOCCAL POLYSACCHARIDE PPV23 (Pneumovax 23) 01/08/2015 TDAP 01/08/2015 Family History Medical History [...] Upcoming Encounters Date Type Department Care Team ([facility] st Contact Info) Description 06/26/2025 11:00 AM EDT Behavioral Health Visit [facility] [address] [place] [phone] Geraldine Garcia APRN [address] [facility] [place] [address] Health Maintenance Due Date Last Done Comments Anxiety Screening 1970 Depression Monitoring 1970 Diabetes Foot Exam 1970 Serum Creatinine 1970 Urine Albumin Creatinine Rat io Screening 1970 Urine Drug Screen 1970 Ool-TFUWM-68 (#1) 1975 Imm-Hepatitis B (1 of 3 - 19 + 3-dose series) 1989 Imm-Zoster, Recombinant (1 of 2) 1989 CT Colonography 2015 Colonoscopy 2015 Colorectal Cancer Screening 2015 FIT/gFOBT 2015 Fecal DNA 2015 Flexible Sigmoidoscopy 2015 Imm-Pneumococcal 50+ (3 of 3 - PCV20 or PCV21) 01/09/2020 01/08/2015, 01/08/2015 Alcohol and Drug Screen 10/02/2024 Imm-Influenza (#1) 2025 Hemoglobin A1c 08/01/2025 05/01/2025, 12/31, 10/18/2024, Additional history exists Lipid Screening 08/21/2025 08/21/2024, 11/14/2022 Tobacco Cessation Counseling (#1) 05/08/2026 Tobacco Screening 05/08/2026 05/08/2025 Imm-DTaP/Tdap/Td (3 - Td or Tdap) 12/30/2034 025, 01/08/2015 HIV Screening Completed 08/21/2024, 08/03, 11/14/2022, Additional history exists Hepatitis C Screening Completed 08/21/2024, 023 Retinopathy Screening [place] [employer]
--- OUTSIDE RECORDS SUMMARY | 2025-05-30 11:25 | XMS_ITS | Encounter Summary ---
Author Organization [employer] Address [address] [facility] 7t [place] [address] Care Team Providers Care Senior Service Aide Name Role Phone Oneida Griffin Primary Care Provider [phone] Julio Rahman Unavailable Unavailable Savanna Bhatt WARE FINISHER Unavailable Reason for Visit * Reason Onset Date Comments Nurse Triage 10/11/2023 Encounter Details Date Type Department Care Team ([facility] st Contact Info) Description 10/11/2023 Telephone [facility] MEDICINE [address] [place], [place] [phone] Oneida Griffin ANP [address] [place] [address] Nurse Triage Social History Tobacco Use Types [...] agrees with disposition and will come to [facility] if needs to . Protocol Used: Diabetes [...] Description 06/04/2025 2:30 PM EDT Clinical Support [address] [address] 06/05/2025 1:00 PM EDT Office Visit [facility] ADULT DENTAL [address] [place] [address] 07/31/2025 2:30 PM EDT Office Visit [facility] MEDICINE [address] [place] [address] Oneida Griffin ANP [address] [place] [address] 08/01/2025 10:30 AM EDT Clinical Support [facility] MEDICINE [address] [place] [address] Flavia Gunter RN [address] [place] [address] documented as of this encounter Goals Goal Patient Goal Type Associated Problems Recent Progress Patient-Stated? Author Record your blood pressure once per day Blood Pressure No Monica Orourke Blood Pressure < 140/90 Blood Pressure 170/94(2024 8:52 AM EDT) No OsmanyMonica faust Patient will adhere to medication regimen General No Monica Orourke Hemoglobin A1c < 7 Result Component 7.9( 1:39 PM EDT) No Monica Orourke documented as of this encounter Visit Diagnoses Not on filedocumented in this encounter Additional Health Concerns Assessment Noted Time PHQ-9 Depression Total Score: 14 023 9:15 AM EST documented as of this encounter Care Teams Senior Service Aide Relationship Specialty Start Date End Date Oneida Griffin ANP [address] [place] [address] PCP - General Family Medicine 09/14/20 Julio Rahman FNP [address] [place] [phone] Nurse Practitioner Family Medicine 08/21/23 08/20/24 Savanna Bhatt NP [address] [place] [address] Drive [address] [place] [address] Urology 08/21/24 Paco Trejo Locomotive Crane Operator Helper 01/15/25 documented as of this encounter
--- OUTSIDE RECORDS SUMMARY | 2025-05-30 11:26 | XMS_ITS | Encounter Summary ---
Author Organization [employer] Address [address] [facility] 7t [place] [address] Care Team Providers Care Overnight Caregiver Name Role Phone Oneida Griffin Primary Care Provider [phone] Savanna Bhatt HVAC INSTALLER Unavailable Reason for Visit * Reason Onset Date Comments Appointment Request 03/18/2025 Encounter Details Date Type Department Care Team ([facility] st Contact Info) Description 03/18/2025 Telephone [facility] MEDICINE [address] [place], [place] [phone] Oneida Griffin ANP [address] [place] [address] Appointment Request Social History Tobacco Use Types Packs/Day Years [...] encounter Miscellaneous Notes * Telephone Encounter - Carmen Nice - 03/18/2025 12:25 PM EDT Tc from pt requesting to r/s per diem registered nurse appt. States would like to be seen in [place] before 03/28/25 due to leaving on vacation. documented in this encounter Plan of Treatment Upcoming Encounters Date Type Department Care Team (Late st Contact Info) Description 06/04/2025 2:30 PM EDT Clinical Support [facility] MEDICINE [address] [place] [phone] 06/05/2025 1:00 PM EDT Office Visit [facility] ADULT DENTAL [address] [place] [address] 07/31/2025 2:30 PM EDT Office Visit [facility] MEDICINE [address] [place] [address] Oneida Griffin, AMRCELA [address] [place] [address] 08/01/2025 10:30 AM EDT Clinical Support [address] [address] Flavia Gunter, SANTI [address] [place] [address] documented as of this encounter Goals Goal [...] documented as of this encounter Care Teams Overnight Caregiver Relationship Specialty Start Date End Date Oneida Griffin ANP [address] [place] [address] PCP - General Family Medicine 09/14/20 Savanna Bhatt NP [address] [place] [address] Drive [address] [place] [address] Urology 08/21/24 Paco Trejo Search Engine Marketing Strategist 01/15/25 documented as of this encounter
--- OUTSIDE RECORDS SUMMARY | 2025-05-30 11:26 | XMS_ITS | Encounter Summary ---
Author Organization [employer] Address [address] [facility] 7t [place] [address] Care Team Providers Care Drive In Waiter/Waitress Name Role Phone Oneida Griffin Primary Care Provider [phone] Savanna Bhatt SUPERCHARGER MECHANIC Unavailable Reason for Visit * Reason Comments Med Refill Encounter Details Date Type Department Care Team ([facility] st Contact Info) Description 03/06/2025 Refill [facility] MEDICINE [address] [place], [place] [phone] Oneida Griffin ANP [address] [place] [address] Erectile dysfunction, unspecified erectile dysfunction type Social History Tobacco Use Types Packs/Day [...] Description 06/04/2025 2:30 PM EDT Clinical Support [facility] MEDICINE [address] [place] [address] 06/05/2025 1:00 PM EDT Office Visit [facility] ADULT DENTAL [address] [place] [address] 07/31/2025 2:30 PM EDT Office Visit [address] [address] Oneida Griffin ANP [address] [place] [address] 08/01/2025 10:30 AM EDT Clinical Support [address] [address] Flavia Gunter, SANTI [address] [place] [address] documented as of this encounter Goals Goal Patient Goal Type Associated Problems Recent Progress Patient-Stated? Author Record your blood pressure once per day Blood Pressure Monica Morris Blood Pressure < 140/90 Blood Pressure 170/94(2024 8:52 AM EDT) No Monica Orourke Patient will adhere to medication regimen General No [place], [place] Hemoglobin A1c < 7 Result Component 7.9( 5 1:39 PM EDT) No Monica Orourke documented as of this encounter Visit Diagnoses Diagnosis Erectile dysfunction, unspecified erectile dysfunction type documented in this encounter Additional Health Concerns Assessment Noted Time PHQ-9 Depression Total Score: 12 024 9:53 AM EDT documented as of this encounter Care Teams Drive In Waiter/Waitress Relationship Specialty Start Date End Date Oneida Griffin ANP [address] [place] [address] PCP - General Family Medicine 09/14/20 Savanna Bhatt NP [address] [place] [address] Drive [address] [place] [address] Urology 08/21/24 Paco Trejo Driver/Guide 01/15/25 documented as of this encounter
[2025-05-30 11:32] VITALS: BP 183/100; PULSE 64; RESP 16; O2SAT 95
[2025-05-30 11:41] LABS: MANUAL DIFF FLAG NO
[2025-05-30 11:44] LABS: Hematocrit 47.1 % (42.0-52.0); Hemoglobin 16.0 g/dl (14.0-18.0); Imm Gran Abs Auto 0.03 X10*3/uL (0.00-0.03); Imm Gran Pct Auto 0.4 % (0.0-0.4); Lymphocytes Absolute Auto 1.8 X10*3/uL (1.2-4.9); Mean Corpuscular HGB Conc 34.0 g/dl (31.0-36.0); Mean Corpuscular Hemoglobin 29.5 pg (27.0-33.0); Mean Corpuscular Volume 86.7 fL (80.0-98.0); NRBC Abs Auto 0.000 X10*3/uL (0.0-0.012); NRBC Pct Auto 0.0 /100WBC (0.0-0.2); Platelet Count 152 X10*3/uL (160-400); Red Blood Count 5.43 X10*6/uL (4.60-5.80); White Blood Count 8.1 X10*3/uL (4.8-10.8)
[2025-05-30 11:57] LABS: Alanine Aminotransferase 20 U/L (0-40); Albumin Level 4.3 g/dL (3.5-5.0); Alkaline Phosphatase 116 U/L (39-117); Anion Gap 11 (12-20); Aspartate Amino Transferase 20 U/L (5-37); Blood Urea Nitrogen 28 mg/dL (9-16); Calcium 9.1 mg/dL (8.4-10.2); Carbon Dioxide 28 mmol/L (22-29); Chloride 105 mmol/L (96-108); Creatinine Clr Calc Pharmacy 82.0; Estimated Glomerular Filt Rate > 60; Magnesium 2.0 mg/dL (1.6-2.6); Potassium 4.2 mmol/L (3.3-5.1); Sodium 140 mmol/L (135-145); Total Protein 7.1 g/dL (6.5-8.0)
[2025-05-30 12:00] VITALS: BP 160/88; PULSE 57; RESP 14
[2025-05-30 12:04] LABS: Troponin-I High Sensitivity 12.1 ng/L (<3.5-35.0)
[2025-05-30 12:13] VITALS: BP 180/100; PULSE 64
[2025-05-30 13:11] VITALS: BP 162/86
[2025-05-30 14:02] VITALS: BP 149/84; PULSE 67; RESP 13; TEMP -17.7; TEMP 0; O2SAT 95
== END 2025-05-30 14:03 | disposition home or self-care (01) ==
PROVIDERS: Emergency Provider Emergency Medicine; PCP Nurse Practitioner Primary Care
DX: I10 Essential (primary) hypertension (principal); E11.9 Type 2 diabetes mellitus without complications; F32.A Depression, unspecified; F41.9 Anxiety disorder, unspecified; G47.33 Obstructive sleep apnea (adult) (pediatric)
CPT/HCPCS: 36415; 70450; 80048; 80076; 83735; 84484; 85025; 93005; 96374; 96375; 99284; J1920; J2405

== ENCOUNTER 2025-05-30 10:45 | Outpatient (RCR) | payer MEDICAID, SELFPAY | END 2025-05-30 16:38 | disposition home or self-care (01) | LOC: HO.WCC 10:45 | PROVIDERS: PCP Nurse Practitioner Primary Care; Visit Provider Surgery Vascular Surgery | DX: E11.622 Type 2 diabetes mellitus with other skin ulcer (principal); L97.819 Non-pressure chronic ulcer of other part of right lower leg with unspecified severity; I87.311 Chronic venous hypertension (idiopathic) with ulcer of right lower extremity; E11.40 Type 2 diabetes mellitus with diabetic neuropathy, unspecified; E11.51 Type 2 diabetes mellitus with diabetic peripheral angiopathy without gangrene; Z87.891 Personal history of nicotine dependence; I10 Essential (primary) hypertension | CPT/HCPCS: 11042; 97597; 99212; 99213 ==

== ENCOUNTER → 2025-05-30 11:01 | Outpatient (BNV) | payer MEDICAID, SELFPAY | PROVIDERS: Emergency Provider Emergency Medicine; PCP Nurse Practitioner Primary Care; Visit Provider Radiology Diagnostic Radiology | DX: R51.9 Headache, unspecified (principal); R42 Dizziness and giddiness | CPT/HCPCS: 70450 ==

== ENCOUNTER → 2025-05-30 11:01 | Outpatient (BNV) | payer MEDICAID, SELFPAY | PROVIDERS: Emergency Provider Emergency Medicine; PCP Nurse Practitioner Primary Care; Visit Provider Internal Medicine | DX: I45.2 Bifascicular block (principal) | CPT/HCPCS: 93010 ==